=== PATIENT | female | born 1935 | race Caucasian/White ===

== ENCOUNTER 2019-02-09 19:17 | Observation (INO) | payer OTHER ==
--- OUTSIDE RECORDS SUMMARY | 2019-02-09 19:20 | XMS REPORT ---
:1935 [facility] [address] [place] [address] Dr. Lujan. [address] [place] [address] Care Team Providers Name Role Phone Unavailable Unavailable Unavailable Payers Payer Name Policy Type Policy Number Effective Date Expiration Date Problems This patient has no known problems. Allergies, Adverse Reactions, Alerts Allergy Allergy Status Severity Reaction(s) Onset Inactive Treating Comments Name Type Date Date Clinician Iodinated DA Active SV 2016-04 Contrast- -05 Oral and IV 00:00:0 Dye 0 Sulfa DA Active U 2016-04 (Sulfonamid -05 e 00:00:0 Antibiotics 0 ) NOVACAINE DA Active SV 2016-02 00:00:0 0 Medications This patient has no known medications. Results Test Description Test Time Test Comments Text Results Atomic Results Result Comments COMPREHENSIVE METABOLIC PANEL 2018-12-23 22:35:00 Test Item Value Reference Range Comments SODIUM (test code=NA) 140 mmol/l 134.0-147.0 POTASSIUM (test code=K) 4.1 mmol/L 3.6-5.2 CHLORIDE (test code=CL) 103 mmol/l 98.0-107.0 CARBON DIOXIDE (test code=CO2) 27.5 mmol/l 21.0-33.0 ANION GAP (test code=GAP) 13.6 0-20 GLUCOSE (test code=GLU) 85 mg/dl 70.0-110.0 BLOOD UREA NITROGEN (test code=BUN) 23 mg/dl 7.0-18.0 CREATININE (test code=CREAT) 1.29 mg/dL 0.60-1.30 GFR NON BLACK (test code=GFRNONBLACK) 42 mL/min 70-80 GFR BLACK (test code=GFRBLACK) 51 mL/min 85-97 TOTAL PROTEIN (test code=PROT) 7.0 gm/dL 6.4-8.2 ALBUMIN (test code=ALB) 3.4 gm/dl 3.2-4.7 CALCIUM (test code=CA) 8.5 mg/dl 8.0-10.5 BILIRUBIN TOTAL (test code=BILT) 0.5 mg/dl 0.0-1.0 SGOT/AST (test code=AST) 23 Units/L 15.0-37.0 SGPT/ALT (test code=ALT) 18 Units/L 12.0-78.0 ALKALINE PHOSPHATASE TOTAL (test code=ALKP) 86 Units/L 50.0-136.0 CREATINE KINASE (CK)2018-12-23 22:35:00 Test Item Value Reference Range Comments CREATINE KINASE (CK) (test code=CK) 97 Units/L 26-192 [id number] 22:35:00 Test Item Value Reference Range Comments TROPONIN-I (test <0.02 NG/ML 0.00-0.06 REFERENCE RANGE TROPONIN I code=TROPI) HEALTHY INDIVIDUALS: <0.06 ng/mL R/O ISCHEMIA: 0.07 - 0.60 ng/mL CUT-OFF RANGE FOR AMI: 0.60 - 1.5 ng/mL [id number] 22:35:00 Test Item Value Reference Range Comments ACETAMINOPHEN (test code=ACET) <2.0 mcg/ml 10.0-30.0 Result is in Microgram per milliliter. [id number] 22:35:00 Test Item Value Reference Range Comments SALICYLATE (test code=MIGEL) 0.8 mg/dl 2.8-20.0 [id number] 22:35:00 Test Item Value Reference Range Comments ALCOHOL (test code=ALC) 0.00 gm/dL 0.00-0.00 ETHYL ALCOHOL VALUES - INTERPRETATION: 0.050 GM/DL - NOT INTOXICATED 0.100 GM/DL - INTOXICATED 0.350-0.450 GM/DL - SEVERELY INTOXICATED 0.550 GM/DL- FATAL INTOXICATION DRUGS OF ABUSE SCREEN [id number] 22:33:00 Test Item Value Reference Range Comments URN COCAINE (test NEGATIVE NEGATIVE Cocaine cut-off concentration: code=COCAURN) 300 ng/mL URN CANNABINOIDS (test NEGATIVE NEGATIVE Cannabinoids cut-off code=CANNABURN) concentration: 50 ng/mL URN AMPHETAMINE (test NEGATIVE NEGATIVE Amphetamine cut-off code=AMPHETURN) concentration: 1000 ng/mL URN BARBITURATE (test NEGATIVE NEGATIVE Barbiturate cut-off code=BARBITURN) concentration: 200 ng/mL URN BENZODIAZEPINE (test NEGATIVE NEGATIVE Benzodiazepine cut-off code=BENZOURN) concentration: 200 ng/mL URN OPIATES (test NEGATIVE NEGATIVE Opiates cut-off concentration: code=OPIATURN) 200 ng/mL URN PHENCYCLIDINE (PCP) (test NEGATIVE NEGATIVE Phencyclidine(PCP) cut-off code=PHENCURN) concentration: 25 ng/ml URN METHADONE (test NEGATIVE NEGATIVE Methadone cut-off code=METHAURN) concentration: 300 ng/mL COMPREHENSIVE METABOLIC [id number] 22:25:00 Test Item Value Reference Range Comments SODIUM (test code=NA) 140 mmol/l 134.0-147.0 POTASSIUM (test code=K) 4.1 mmol/L 3.6-5.2 CHLORIDE (test code=CL) 103 mmol/l 98.0-107.0 CARBON DIOXIDE (test code=CO2) 27.5 mmol/l 21.0-33.0 ANION GAP (test code=GAP) 13.6 0-20 GLUCOSE (test code=GLU) mg/dl 70.0-110.0 BLOOD UREA NITROGEN (test code=BUN) mg/dl 7.0-18.0 CREATININE (test code=CREAT) mg/dL 0.60-1.30 GFR NON BLACK (test code=GFRNONBLACK) mL/min 70-80 GFR BLACK (test code=GFRBLACK) mL/min 85-97 TOTAL PROTEIN (test code=PROT) gm/dL 6.4-8.2 ALBUMIN (test code=ALB) gm/dl 3.2-4.7 CALCIUM (test code=CA) mg/dl 8.0-10.5 BILIRUBIN TOTAL (test code=BILT) mg/dl 0.0-1.0 SGOT/AST (test code=AST) Units/L 15.0-37.0 SGPT/ALT (test code=ALT) Units/L 12.0-78.0 ALKALINE PHOSPHATASE TOTAL (test code=ALKP) Units/L 50.0-136.0 CREATINE KINASE (CK)2018-12-23 22:25:00 Test Item Value Reference Range Comments CREATINE KINASE (CK) (test code=CK) Units/L 26-192 [id number] 22:25:00 Test Item Value Reference Range Comments TROPONIN-I (test code=TROPI) NG/ML 0.00-0.06 [id number] 22:25:00 Test Item Value Reference Range Comments ACETAMINOPHEN (test code=ACET) mcg/ml 10.0-30.0 [id number] 22:25:00 Test Item Value Reference Range Comments SALICYLATE (test code=MIGEL) mg/dl 2.8-20.0 [id number] 22:25:00 Test Item Value Reference Range Comments ALCOHOL (test code=ALC) gm/dL 0.00-0.00 PROTHROMBIN [id number] 22:24:00 Test Item Value Reference Range Comments PROTHROMBIN TIME PATIENT 11.9 SECONDS 9.9-12.8 (test code=PTP) INTERNATIONAL NORMAL RATIO 1.0 0.89-1.14 THE INR IS TO BE USED ONLY (test code=INR) FOR MONITORING ORAL ANTICOAGULANTTHERAPY. THE FOLLOWING ARE SUGGESTED RANGES FROM THEAMERICAN COLLEGE OF CHEST PHYSICIANS:INDICATION INR VALUEPROPHYLAXIS OF VENOUS THROMBOSIS (ORTHOPEDIC SURGERY) 2.0 - 3.0PROPHYLAXIS OF VENOUS THROMBOSIS (OTHER THAN HIGH-RISK SURGERY) 2.0 - 3.0TREATMENT OF DEEP VEIN THROMBOSIS OR PULMONARY EMBOLISM 2.0 - 3.0PREVENTION OF SYSTEMIC EMBOLISM TISSUE HEART VALVES 2.0 - 3.0 ACUTE MYOCARDIAL INFARCTION (TO PREVENT SYSTEMIC EMBOLISM) 2.0 - 3.0 ACUTE MYOCARDIAL INFARCTION (TO PREVENT RECURRENT INFARCT) 2.5 - 3.0 VALVULAR HEART DISEASE 2.0 - 3.0 ATRIAL FIBRILATION 2.0 - 3.0BILEAFLET MECHANICAL VALVE IN AORTIC POSITION 2.0 - 3.0MECHANICAL PROSTHETIC VALVES (HIGH RISK) 2.5 - 3.5PRESENCE OF LUPUS ANTICOAGULANT OR ANTIPHOSPHOLIPID ANTIBODIES 2.5 - 3.5 THROMBOPLASTIN TIME [id number] 22:24:00 Test Item Value Reference Range Comments THROMBOPLASTIN TIME 26.50 SECONDS 25.86-36.07 [facility] PARTIAL (test code=PTT) Range - APTT of 55.8-85.4 secondscorrelates with plasma heparin concentration of 0.2-0.4 u/mL New range effective - 10/06/2016 URINALYSIS [id number] 22:23:00 Test Item Value Reference Range Comments UA COLOR (test code=COLU) LT YELLOW UA APPEARANCE (test code=APPU) SLHZY UA GLUCOSE DIPSTICK (test code=DGLUU) NORMAL mg/dl NORMAL UA BILIRUBIN DIPSTICK (test code=BILU) NEGATIVE mg/dL NEGATIVE UA KETONE DIPSTICK (test code=KETU) NEGATIVE mg/dl NEGATIVE UA SPECIFIC GRAVITY (test code=SGU) 1.015 1.000-1.030 UA BLOOD DIPSTICK (test code=SAMANTHA) NEGATIVE Eric/micL NEGATIVE UA PH DIPSTICK (test code=BRENT) 6.0 5.0-9.0 UA PROTEIN DIPSTICK (test code=PROU) NEGATIVE mg/dl NEGATIVE UA UROBILINIOGEN DIPSTICK (test NORMAL mg/dl NORMAL code=URO) UA NITRITE DIPSTICK (test code=NATI) NEGATIVE NEGATIVE UA LEUKOCYTE ESTERASE DIPSTICK (test 25 Raysa/micL Raysa/micL NEGATIVE code=LEUU) UA WBC (test code=WBCU) 3-5/HPF WBC/HPF NONE UA RBC (test code=RBCU) 1-3 RBC/HPF 0-3 UA EPITHELIAL CELLS (test code=EPIU) 10-15 EPI/HPF 0-3 UA BACTERIA (test code=BACU) FEW NONE UA HYALINE CAST (test code=HYALU) 0-2 /LPF <1/LPF CBC W/AUTO [id number] 22:19:00 Test Item Value Reference Range Comments WHITE BLOOD CELL (test code=WBC) 11.0 K/mm3 4.5-11.0 RED BLOOD CELL (test code=RBC) 3.71 M/mm3 3.80-5.20 HEMOGLOBIN (test code=HGB) 11.3 gm/dL 12.0-16.0 HEMATOCRIT (test code=HCT) 36.0 % 36.0-48.0 MEAN CELL VOLUME (test code=MCV) 97.0 UM3 82.0-99.0 MEAN CELL HGB (test code=MCH) 30.5 UUG 25.5-32.5 MEAN CELL HGB CONCETRATION (test code=MCHC) 31.4 gm/dL 29.0-35.5 RED CELL DISTRIBUTION WIDTH (test code=RDW) 15.0 % 11.5-15.0 RED CELL DISTRIBUTION WIDTH SD (test 53.2 fL 34.8-50.2 code=RDW-SD) PLATELET COUNT (test code=PLT) 188 K/mm3 150-400 MEAN PLATELET VOLUME (test code=MPV) 10.6 fl 7.4-10.4 NEUTROPHIL % (test code=NT%) 73.7 % 49.0-76.0 IMMATURE GRANULOCYTE % (test code=IG%) 0.8 % 0.0-0.4 LYMPHOCYTE % (test code=LY%) 15.6 % 23.0-38.0 MONOCYTE % (test code=MO%) 6.4 % 1.0-10.0 EOSINOPHIL % (test code=EO%) 3.0 % 1.0-5.0 BASOPHIL % (test code=BA%) 0.5 % 0.0-1.0 NEUTROPHIL # (test code=NT#) 8.1 K/mm3 2.4-6.3 IMMATURE GRANULOCYTE # (test code=IG#) 0.09 x10 3/uL 0.00-0.07 LYMPHOCYTE # (test code=LY#) 1.7 K/mm3 1.2-4.0 MONOCYTE # (test code=MO#) 0.7 K/mm3 0.0-0.6 EOSINOPHIL # (test code=EO#) 0.3 K/MM3 0.0-0.7 BASOPHIL # (test code=BA#) 0.1 K/mm3 0.0-0.2 URINALYSIS [id number] 22:18:00 Test Item Value Reference Range Comments UA COLOR (test code=COLU) LT YELLOW UA APPEARANCE (test code=APPU) SLHZY UA GLUCOSE DIPSTICK (test code=DGLUU) NORMAL mg/dl NORMAL UA BILIRUBIN DIPSTICK (test code=BILU) NEGATIVE mg/dL NEGATIVE UA KETONE DIPSTICK (test code=KETU) NEGATIVE mg/dl NEGATIVE UA SPECIFIC GRAVITY (test code=SGU) 1.015 1.000-1.030 UA BLOOD DIPSTICK (test code=SAMANTHA) NEGATIVE Eric/micL NEGATIVE UA PH DIPSTICK (test code=BRENT) 6.0 5.0-9.0 UA PROTEIN DIPSTICK (test code=PROU) NEGATIVE mg/dl NEGATIVE UA UROBILINIOGEN DIPSTICK (test NORMAL mg/dl NORMAL code=URO) UA NITRITE DIPSTICK (test code=NATI) NEGATIVE NEGATIVE UA LEUKOCYTE ESTERASE DIPSTICK (test 25 Raysa/micL Raysa/micL NEGATIVE code=LEUU) UA WBC (test code=WBCU) WBC/HPF NONE UA RBC (test code=RBCU) RBC/HPF 0-3 UA EPITHELIAL CELLS (test code=EPIU) EPI/HPF 0-3 UA BACTERIA (test code=BACU) NONE - XR FOREARM 2 VIEWS [id number] 21:55:00 FAX: Silvia AdameNorfolkJr sawant [phone] [place]: St: REG FAX: Deborah Marcano [phone] Name: KADI DEMARCO [facility] : 1935 Age/S: 83/F [address] [facility] Unit #: [id number] Loc: [address] Phys: [place] [address] Acct: [id number] Dis Date: Status: REG ER PHONE #: [phone] Exam Date: 12/23/20182141 FAX #: [phone] Reason: FALL EXAMS: CPT CODE: [id number] XR FOREARM [address] [place] [address] CLINICAL HISTORY: Fall with hip pain., Bilateral forearm pain Left hip, 2 views.. Good alignment is seen with no evidence of fracture or subluxation. Mineralization pattern is intact. No obvious joint effusion is seen. Mild degenerative changes. IMPRESSION: No acute bone or joint space abnormality. No fracture seen. Bilateral forearms, 2 views. The right forearm appears to be intacttowards the wrist. No obvious joint effusion and only minimal degenerative changes. No foreign bodies are seen. The left forearm appears to be intact with no obviousjoint effusion although the elbow detail is limited. No fracture seen. IMPRESSION: Limited study. No obvious forearm fracture. Location: U19 at 2155 Reported and signed by: David Alvarez M.D. CC : Jr Shaw III, MD; Nuha Marcano MD Technologist: KRISTINA ALLAN; YVONNE LOWERY [facility] Date/Time/By: 12/23/2018 (2154) : By: [facility] PAGE 1 Signed Report FAX: Jr Cunningham II [phone] [place] : St: REG FAX: Nuha Marcano MD [phone] Name: KADI DEMARCO [facility] : 1935 Age /S: 83/F [address] [facility] Unit #: [id number] Loc: E.[address] [place] [address] Phys: [place] [address] Acct: [id number] Dis Date: Status: REG ER PHONE #: [phone] Exam Date : 12/23/20182141 FAX #: [phone] Reason: FALL EXAMS: CPT CODE: [id number] XR FOREARM [address] [place] [address] <Continued> Orig Print D/T: S: 12/23/2018 (2) PAGE 2 Signed Report- XR HIP W/PEL UNI 2+V [id number] 21:55:00 FAX: Jr Cunningham II [place]: St: REG FAX: Deborah Marcano [phone] - Name: KADI DEMARCO [facility] : 1935 Age/S: 83/F [address] [facility] Unit #: [id number] Loc: [address] Phys: [place] [address] Acct: [id number] Dis Date: Status: REG ER PHONE #: [phone] Exam Date: 12/23/20182141 FAX #: [phone] Reason: FALL EXAMS: CPT CODE: [id number] XR HIP W/PEL UNI 2+[place] [address] CLINICAL HISTORY: Fall with hip pain., Bilateral forearm pain Left hip, 2 views.. Good alignment is seen with no evidence of fracture or subluxation. Mineralization pattern is intact. No obvious joint effusion is seen. Mild degenerative changes. IMPRESSION: No acute bone or joint space abnormality. No fracture seen. Bilateral forearms, 2 views. The right forearm appears to be intacttowards the wrist. No obvious joint effusion and only minimal degenerative changes. No foreign bodies are seen. The left forearm appears to be intact with no obviousjoint effusion although the elbow detail is limited. No fracture seen. IMPRESSION: Limited study. No obvious forearm fracture. Location: U19 at 2155 Reported and signed by: David Alvarez M.D. CC : Jr Shaw III, MD; Nuha Marcano MD Technologist: KRISTINA LOWERY Trnscrd Date/Time/By: 12/23/2018 (2154) : By: [facility] PAGE 1 Signed Report FAX: Silvia ShawJr CHARLES [phone] [place] : St: REG FAX: Nuha Marcano MD [phone] Name: KADI DEMARCO [facility] : 1935 Age /S: 83/F [address] Unit #: [id number] Loc: [address] Phys: [place] [address] Acct: [id number] Dis Date: Status: REG ER PHONE #: [phone] Exam Date : 12/23/20182141 FAX #: [phone] Reason: FALL EXAMS: CPT CODE: [id number] XR HIP W/PEL UNI 2+[place] [address] <Continued> Orig Print D/T: S: 12/23/2018 (2152) PAGE 2 Signed Report- CT HEAD/BRAIN W/O [id number] 21:45:00 FAX: Silvia ShawJr CHARLES [phone] [place]: St: REG FAX: Nuha Marcano MD [phone] - Name: KADI DEMARCO [facility] : 1935 Age/S: 83/F [address] Unit: [id number] Loc: [address] Phys: [place] [address] Acct: [id number] Dis Date: Status: REG ER PHONE #: [phone] Exam Date: 12/23/20182138 FAX #: [phone] Reason: head injury EXAMS: CPT CODE: [id number] CT HEAD/BRAIN W/O CONT 19868 CLINICAL HISTORY: Head injury, combative. CT brain, unenhanced. Reformatted sagittal and coronal images. COMPARISON: April 14, 2016. Automated exposure control, iterative reconstruction technique, and/or adjustment of mA and/or kV according to patient's size wasutilized for optimum radiation dose reduction. An unenhanced study of the brain was performed. Stable cortical atrophy pattern and hypodensity in the white matter seen.. No hemorrhage, mass effect, or findings of CVA can be seen. No evidence of ventricular shift. The posterior fossa structures appear to be intact. There may be mild cerebellar atrophy. Bone window settings do not show any evidence of skull fracture. Visualized sinuses appear to be clear. . IMPRESSION: No acute appearing intracranial abnormality. Stable senescent changes. REASON FOR EXAM: Neck pain, trauma CT cervical spine, unenhanced with reformatted sagittal and coronal images. COMPARISON: March 10, 2016 All studies use automated exposure control, iterative reconstruction technique, and/or adjustment of mA and/or kV according to patient size for optimum radiation dose reduction The study is performed from above the dens through the lung apices. PAGE 1 Signed Report (CONTINUED) FAX : Jr Cunningham II [phone] [place]: St: REG FAX: Nuha Marcano MD [phone] Name: KADI DEMARCO [facility] : 1935 Age/S: 83/F [address] [facility] Unit: [id number] Loc: [address] Phys: [place] [address] Acct: [id number] Dis Date: Status: REG ER PHONE #: [phone] Exam Date: 12/23/20182138 FAX #: [phone] Reason: head injury EXAMS: CPT CODE: [id number] CT HEAD/BRAIN W/O CONT 94102 < Continued> The vertebral bodies are free of fracture and have symmetric appearance. Similar degenerative spondylosis changes seen diffusely in the spine. Multilevel foraminal stenosis seen due to uncinate process hypertrophy and facet hypertrophy. Spinal stenosis mainly C5-6 level.. The soft tissue window settings do not reveal apical pneumothorax or paraspinal hematoma. Reformatted images show good alignment and no fractures can be identified, either. Stable alignment pattern compared to the previous study. No fracture. Cranial cervical junction structures are intact. IMPRESSION: No fracture seen. Stable alignment pattern from 2016 with generalized spondylosis. Multilevel foraminal stenosis. Location: U19 at 2145 Reported and signed by: David Alvarez M.D. CC: Jr Shaw III, MD; Michelle PALACIOS Technologist: YVONNE LOWERY Trnscrd Dt/Tm: 12/23/2018 (2144) t.RCM Orig Print D/T: S: 12/23/2018 (8 PAGE 2 Signed Report- CT C-SPINE W/O [id number] 21:45:00 FAX : Jr Cunningham II [phone] [place]: St: REG FAX: Nuha Marcano MD [phone] Name: KADI DEMARCO [facility] : 1935 Age/S: 83/F [address] [facility] Alberto [employer] [facility] Unit: [id number] Loc: [address] Phys: [place] [address] Acct:[id number] Dis Date: Status: REG ER PHONE #: [phone] Exam Date: 12/23/20182138 FAX #: [phone] Reason: head injury EXAMS: CPT CODE: [id number] CT C-SPINE W/O CONT 95885 CLINICAL HISTORY: Head injury, combative. CT brain, unenhanced. Reformatted sagittal and coronal images. COMPARISON: April 14, 2016. Automated exposure control, iterative reconstruction technique, and/or adjustment of mA and/or kV according to patient's size wasutilized for optimum radiation dose reduction. An unenhanced study of the brain was performed. Stable cortical atrophy pattern and hypodensity in the white matter seen.. No hemorrhage, mass effect, or findings of CVA can be seen. No evidence of ventricular shift. The posterior fossa structures appear to be intact. There may be mild cerebellar atrophy. Bone window settings do not show any evidence of skull fracture. Visualized sinuses appear to be clear. . IMPRESSION: No acute appearing intracranial abnormality. Stable senescent changes. REASON FOR EXAM: Neck pain, trauma CT cervical spine, unenhanced with reformatted sagittal and coronal images. COMPARISON: March 10, 2016 All studies use automated exposure control, iterative reconstruction technique, and/or adjustment of mA and/or kV according to patient size for optimum radiation dose reduction The study is performed from above the dens through the lung apices. PAGE 1 Signed Report (CONTINUED) FAX: Silvia AdameNorfolkJr II [phone] [place]: St: REG FAX: Nuha Marcano MD ------ Name: KADI DEMARCO [facility] : 1935 Age/S: 83/F [address] [facility] Unit : [id number] Loc: [address] [place]: [place] [address] Acct: [id number] Dis Date: Status: REG ER PHONE #: [phone] Exam Date: 12/23/20182138 FAX #: [phone] Reason: head injury EXAMS: CPT CODE: [id number] CT C-SPINE W/O CONT 92114 <Continued> The vertebral bodies are free of fracture and have symmetric appearance. Similar degenerative spondylosis changes seen diffusely in the spine. Multilevel foraminal stenosis seen due to uncinate process hypertrophy and facet hypertrophy. Spinal stenosis mainly C5-6 level.. The soft tissue window settings do not reveal apical pneumothorax or paraspinal hematoma. Reformatted images show good alignment and no fractures can be identified, either. Stable alignment pattern compared to the previous study. No fracture. Cranial cervical junction structures are intact. IMPRESSION: No fracture seen. Stable alignment pattern from 2016 with generalized spondylosis. Multilevel foraminal stenosis. Location: U19 at 2149 Reported and signed by: David Alvarez M.D. CC: Jr Shaw III, MD; Michelle PALACIOS Technologist: YVONNE LOWERY Trnscrd Dt/Tm: 12/23/2018 (2144) [place] Orig Print D/T: S: 12/23/2018 (8 PAGE 2 Signed Report
[2019-02-09 20:20] LABS: Absolute Lymphocytes (CBC) 1.7 K/uL (0.7-4.9); Basophils % 1.2 % (0-1.3); Hematocrit 31.4 % (36.0-45.0); Lymphocytes % 32.9 % (15.3-44.8); MPV 8.3 fL (7.6-11.3); RBC Red Blood Cell Count 3.28 M/uL (3.86-4.86)
[2019-02-09 20:21] LABS: Protime INR 0.93
[2019-02-09 20:36] LABS: ALT/SGPT 26 U/L (12-78); AST/SGOT 33 U/L (15-37); Albumin 3.4 g/dL (3.4-5.0); Alkaline Phosphatase 87 U/L (45-117); BUN Blood Urea Nitrogen 29 mg/dL (7-18); Bicarbonate 25 mmol/L (21-32); Bilirubin Direct 0.1 mg/dL (0-0.2); Bilirubin Total 0.3 mg/dL (0.2-1.0); Glucose Level 115 mg/dL (74-106); Magnesium 2.4 mg/dL (1.8-2.4); NT PRO-BNP 419 pg/mL (<450); Potassium 4.3 mmol/L (3.5-5.1); Protein, Total 6.7 g/dL (6.4-8.2); Sodium Level 142 mmol/L (136-145); Troponin (Emerg Dept Use Only) < 0.02 ng/mL (0.0-0.045)
[2019-02-09 20:59] LABS: Urine Blood NEGATIVE (NEG); Urine Glucose NEGATIVE (NEG); Urine Protein NEGATIVE (NEG); Urine Specific Gravity 1.015 (1.005-1.030)
--- NOTE | 2019-02-09 21:05 | RAD REPORT ---
EXAM DESCRIPTION: RAD - Hip Left 2 View - 02/09/2019 8:27 pm CLINICAL HISTORY: Fall, pelvic and hip pain COMPARISON: None. FINDINGS: AP and cross-table lateral views of the left hip were obtained. No fracture or dislocation of the proximal left femur. Degenerative changes are present at the hip joint. No fracture of the le ft hemipelvis. Right pelvis findings are separately detailed. No pathologic bone process. No soft tissue abnormality. IMPRESSION: Left hip joint degenerative change with no left-sided fracture seen.
--- NOTE | 2019-02-09 21:05 | RAD REPORT ---
EXAM DESCRIPTION: RAD - Pelvis - 02/09/2019 8:27 pm CLINICAL HISTORY: Fall, pelvic and right hip pain COMPARISON: None. TECHNIQUE: AP imaging of the pelvis was obtained. FINDINGS: Prominent lower lumbar spine degenerative changes are present only partially visualized. S I joint degenerative changes minimal. No gross fracture deformity of the sacral ala; however, osteope wanda and overlying bowel limit sacral ala assessment. Fracture changes are evident in the inferior pub ic ramus on the right. Positioning is not optimal. Given the clinical history hand pain symptoms acut e fractures suspected. No fracture or dislocation of the proximal right femur. Degenerative cystic changes are present in th e right femoral head. IMPRESSION: No fracture or dislocation of the proximal femur. Degenerative changes are present in th e femoral head. Right inferior pubic ramus fracture is present and believed to be acute.
--- NOTE | 2019-02-09 21:07 | RAD REPORT ---
EXAM DESCRIPTION: RAD - Hip Right 2 View - 02/09/2019 8:25 pm CLINICAL HISTORY: Fall, pelvic and right pain COMPARISON: None. FINDINGS: AP and frog-leg views of the right hip were obtained. No fracture or dislocation of the p roximal femur. Femoral head degenerative changes are present. Degenerative changes are present at the hip joint itself. Fracture changes are present involving the right ischium and inferior pubic ramus. Positioning is not optimal. Given the fall history and pain pattern, acute fracture is suspected. No pathologic bone process. IMPRESSION: No dislocation or fracture of the proximal right femur. Right ischium and inferior pubic ramus fracture changes are present believed to be acute. As clinical findings warrant, thin section CT imaging of the pelvis could be performed to allow all s acral ala assessment and to assess the ischium and inferior pubic ramus for acute versus chronic frac ture.
--- NOTE | 2019-02-09 21:07 | RAD REPORT ---
EXAM DESCRIPTION: RAD - Chest Single View - 02/09/2019 8:24 pm CLINICAL HISTORY: Fall, cough COMPARISON: None. TECHNIQUE: AP portable chest image was obtained 2018 hours . FINDINGS: No focal lung parenchymal process. No failure or volume overload. Heart and vasculature ar e normal. No measurable pleural effusion and no pneumothorax. No acute bony abnormality seen. No acut e aortic findings suspected. IMPRESSION: No acute cardiopulmonary process.
--- NOTE | 2019-02-09 22:19 | EDPHYS ---
Physician Documentation [facility] Name: Sharri Hickman Age: 84 yrs Sex: Female : 1935 Arrival Date: 02/09/2019 Time: 19:26 Bed 5 Private MD: ED Physician Dylan Cano HPI: 02/09 19:49 This 84 yrs old Female presents to ER via EMS with complaints of Fall Injury. jamey 19:49 Details of fall: The patient fell from an upright position. Onset: The symptoms/episode jamey began/occurred just prior to arrival. Associated injuries: The patient sustained pelvis, decreased range of motion. Severity of symptoms: At their worst the symptoms were mild, moderate, in the emergency department the symptoms are unchanged. The patient has not experienced similar symptoms in the past. Historical: - Allergies: 19:37 Lidocaine; tl2 19:37 Haldol; tl2 - Home Meds: 19:37 folic acid 1 mg Oral tab 1 tab once daily [Active]; lorazepam 0.5 mg Oral tab .5 tab 2 tl2 times per day [Active]; risperidone 0.25 mg oral tab 1 tabs 2 times per day [Active]; acetaminophen 325 mg Oral tab 1 tab every 4 hours [Active]; docusate calcium 240 mg Oral cap 1 cap once daily [Active]; ondansetron HCl 4 mg Oral tab 2 tabs every 8 hours [Active]; - PMHx: 19:37 Dementia; acute psychosis; tl2 - Immunization history: Last tetanus immunization: unknown. - Social history:: Smoking status: Patient/guardian denies using tobacco. - Ebola Screening: : No symptoms or risks identified at this time. - Family history:: not pertinent. ROS: 19:49 Constitutional: Negative for fever, chills, and weight loss, Eyes: Negative for injury, jamey pain, redness, and discharge, ENT: Negative for injury, pain, and discharge, Neck: Negative for injury, pain, and swelling, Cardiovascular: Negative for chest pain, palpitations, and edema, Respiratory: Negative for shortness of breath, cough, wheezing, and pleuritic chest pain, Abdomen/GI: Negative for abdominal pain, nausea, vomiting, diarrhea, and constipation, Back: Negative for injury and pain, : Negative for injury, bleeding, discharge, and swelling, Skin: Negative for injury, rash, and discoloration, Neuro: Negative for headache, weakness, numbness, tingling, and seizure, Psych: Negative for depression, anxiety, suicide ideation, homicidal ideation, and hallucinations, Allergy/Immunology: Negative for hives, rash, and allergies, Endocrine: Negative for neck swelling, polydipsia, polyuria, polyphagia, and marked weight changes, Hematologic/Lymphatic: Negative for swollen nodes, abnormal bleeding, and unusual bruising. 19:49 MS/extremity: Positive for decreased range of motion, pain, of the pelvis. Exam: 19:49 Constitutional: This is a well developed, well nourished patient who is awake, alert, jamey and in no acute distress. Head/Face: Normocephalic, atraumatic. Eyes: Pupils equal round and reactive to light, extra-ocular motions intact. Lids and lashes normal. Conjunctiva and sclera are non-icteric and not injected. Cornea within normal limits. Periorbital areas with no swelling, redness, or edema. ENT: Nares patent. No nasal discharge, no septal abnormalities noted. Tympanic membranes are normal and external auditory canals are clear. Oropharynx with no redness, swelling, or masses, exudates, or evidence of obstruction, uvula midline. Mucous membranes moist. Neck: Trachea midline, no thyromegaly or masses palpated, and no cervical lymphadenopathy. Supple, full range of motion without nuchal rigidity, or vertebral point tenderness. No Meningismus. Chest/axilla: Normal chest wall appearance and motion. Nontender with no deformity. No lesions are appreciated. Cardiovascular: Regular rate and rhythm with a normal S1 and S2. No gallops, murmurs, or rubs. Normal PMI, no JVD. No pulse deficits. Respiratory: Lungs have equal breath sounds bilaterally, clear to auscultation and percussion. No rales, rhonchi or wheezes noted. No increased work of breathing, no retractions or nasal flaring. Abdomen/GI: Soft, non-tender, with normal bowel sounds. No distension or tympany. No guarding or rebound. No evidence of tenderness throughout. Back: No spinal tenderness. No costovertebral tenderness. Full range of motion. Female : Normal external genitalia. Skin: Warm, dry with normal turgor. Normal color with no rashes, no lesions, and no evidence of cellulitis. Psych: Awake, alert, with orientation to person, place and time. Behavior, mood, and affect are within normal limits. 19:49 Neuro: Orientation: Not oriented to person, place, time, situation, Mentation: appropriate for stated age, no acute changes, Memory: appropriate for stated age, Motor: moves all fours, Sensation: unable to test, Babinski testing is normal, seizure activity, is not displayed by the patient. Vital Signs: 19:27 BP 142 / 87; Pulse 86; Resp 18; Temp 97.6(O); Pulse Ox 100% on R/A; Weight 58.97 kg; tl2 Height 5 ft. 3 in. (160.02 cm); Pain 5/10; 20:25 BP 144 / 103; Pulse 84; Resp 20; Pulse Ox 100% ; tl2 21:33 BP 138 / 62; Pulse 78; Resp 18; Pulse Ox 100% on R/A; tl2 02/10 00:02 BP 143 / 71; Pulse 82; Resp 16 S; Temp 97.7(O); Pulse Ox 97% on R/A; Pain 0/10; bb 02/09 19:27 Body Mass Index 23.03 (58.97 kg, 160.02 cm) tl2 Deland Coma Score: 02/09 19:27 Eye Response: spontaneous(4). Verbal Response: confused(4). Motor Response: obeys tl2 commands(6). Total: 14. 20:25 Eye Response: spontaneous(4). Verbal Response: confused(4). Motor Response: obeys tl2 commands(6). Total: 14. Trauma Score (Adult): 19:27 Eye Response: spontaneous(1); Verbal Response: confused(1); Motor Response: obeys tl2 commands(2); Systolic BP: > 89 mm Hg(4); Respiratory Rate: 10 to 29 per min(4); Deland Score: 14; Trauma Score: 12 20:25 Eye Response: spontaneous(1); Verbal Response: confused(1); Motor Response: obeys tl2 commands(2); Systolic BP: > 89 mm Hg(4); Respiratory Rate: 10 to 29 per min(4); Justyn Score: 14; Trauma Score: 12 MDM: 19:29 Patient medically screened. [facility] 19:51 Data reviewed: vital signs, nurses notes, lab test result(s), EKG, radiologic studies, jamey plain films. 02/09 19:48 Order name: Basic Metabolic Panel [facility] 02/09 19:48 Order name: CBC with Diff [facility] 02/09 19:48 Order name: LFT's [facility] 02/09 19:48 Order name: Magnesium; Complete Time: 22:08 [facility] 02/09 19:48 Order name: NT PRO-BNP; Complete Time: 22:08 [facility] 02/09 19:48 Order name: PT-INR; Complete Time: 22:08 [facility] 02/09 19:48 Order name: Troponin (emerg Dept Use Only); Complete Time: 22:08 [facility] 02/09 19:48 Order name: XRAY Chest (1 view); Complete Time: 22:08 [facility] 02/09 19:48 Order name: Pelvis XRAY; Complete Time: 22:08 [facility] 02/09 19:48 Order name: Urine Culture [facility] 02/09 19:49 Order name: Basic Metabolic Panel; Complete Time: 22:08 [facility] 02/09 19:49 Order name: CBC with Automated Diff; Complete Time: 22:08 [facility] 02/09 19:49 Order name: Liver (Hepatic) Function; Complete Time: 22:08 [facility] 02/09 20:48 Order name: Urine Dipstick--Ancillary (enter results); Complete Time: 22:08 [facility] 02/09 19:48 Order name: EKG; Complete Time: 19:50 [facility] 02/09 19:48 Order name: Cardiac monitoring; Complete Time: 20:05 [facility] 02/09 19:48 Order name: EKG - Nurse/Tech; Complete Time: 19:56 [facility] 02/09 19:48 Order name: IV Saline Lock; Complete Time: 20:06 [facility] 02/09 19:48 Order name: Labs collected and sent; Complete Time: 20:06 [facility] 02/09 19:48 Order name: O2 Per Protocol; Complete Time: 20:06 [facility] 02/09 19:48 Order name: O2 Sat Monitoring; Complete Time: 20:06 [facility] 02/09 19:48 Order name: Hip Left 2 View XRAY; Complete Time: 22:08 [facility] 02/09 19:48 Order name: Hip Right 2 View XRAY; Complete Time: 22:08 [facility] 02/09 19:48 Order name: Urine Dipstick-Ancillary (obtain specimen); Complete Time: 20:50 [facility] 02/09 23:07 Order name: CONS Pharmacy Consult [facility] 02/09 23:07 Order name: NPO [facility] Administered Medications: 20:37 Drug: NS 0.9% 1000 ml Route: IV; Rate: 125 ml/hr; Site: left antecubital; tl2 02/10 00:44 Follow up: IV Status: Infusion continued upon admission tl2 02/09 23:22 Drug: Rocephin - (cefTRIAXone) 1 grams Route: IVPB; Infused Over: 30 mins; Site: left tl2 antecubital; 23:40 Follow up: IV Status: Completed infusion; IV Intake: 20ml tl2 Disposition: 02/09/19 22:18 Hospitalization ordered by Shahida Cash for Inpatient Admission. Preliminary diagnosis are Fall due to bumping against object, Altered mental status, unspecified, Dementia in other diseases classified elsewhere, Urinary tract infection, site not specified, Fracture of other parts of pelvis - inferior right ramus, ischium, Volume depletion, Anemia, unspecified, Unspecified kidney failure. - Bed requested for Telemetry/MedSurg (Inpatient). - Status is Inpatient Admission. tl2 - Condition is Fair. - Problem is new. - Symptoms are unchanged. UTI on Admission? Yes Signatures: Dispatcher [employer] [facility] Dylan Cano MD MD cha Garcia, Cindy, RN RN Nancy Lloyd RN RN tl2 Corrections: (The following items were deleted from the chart) 23:37 22:18 Hospitalization Ordered by Shahida Cash MD for Inpatient Admission. Preliminary cg diagnosis is Fall due to bumping against object; Altered mental status, unspecified; Dementia in other diseases classified elsewhere; Urinary tract infection, site not specified; Fracture of other parts of pelvis - inferior right ramus, ischium; Volume depletion; Anemia, unspecified; Unspecified kidney failure. Bed requested for Telemetry/MedSurg (Inpatient). Status is Inpatient Admission. Condition is Fair. Problem is new. Symptoms are unchanged. UTI on Admission? Yes. [facility] 02/10 00:44 02/09 23:37 02/09/2019 22:18 Hospitalization Ordered by Shahida Cash MD for Inpatient tl2 Admission. Preliminary diagnosis is Fall due to bumping against object; Altered mental status, unspecified; Dementia in other diseases classified elsewhere; Urinary tract infection, site not specified; Fracture of other parts of pelvis - inferior right ramus, ischium; Volume depletion; Anemia, unspecified; Unspecified kidney failure. Bed requested for Telemetry/MedSurg (Inpatient). Status is Inpatient Admission. Condition is Fair. Problem is new. Symptoms are unchanged. UTI on Admission? Yes.
--- NOTE | 2019-02-09 22:19 | ER ---
Nurse's Notes [facility] Name: Sharri Hickman Age: 84 yrs Sex: Female : 1935 Arrival Date: 02/09/2019 Time: 19:26 Bed 5 Private MD: Diagnosis: Fall due to bumping against object;Altered mental status, unspecified;Dementia in other diseases classified elsewhere;Urinary tract infection, site not specified;Fracture of other parts of pelvis-inferior right ramus, ischium;Volume depletion;Anemia, unspecified;Unspecified kidney failure Presentation: 02/09 19:27 Presenting complaint: EMS states: Pt found on floor at [facility] after trying to go to [facility] the bathroom. Pt c/o pain in right hip. Care prior to arrival: None. Mechanism of Injury: Fall from standing position. Trauma event details: Injury occurred in the [facility]. 19:27 Acuity: MISSY 3 tl2 19:27 Method Of Arrival: EMS: [facility] tl2 19:38 Transition of care: patient was received from another setting of care (long-term care [facility] facility), [facility]. Onset of symptoms was February 09, 2019 at 18:00. Risk Assessment: Do you want to hurt yourself or someone else? Patient reports no desire to harm self or others. Initial Sepsis Screen: Does the patient meet any 2 criteria?. Initial Sepsis Screen: Does the patient have a suspected source of infection? No. Patient's initial sepsis screen is negative. Historical: - Allergies: 19:37 Lidocaine; tl2 19:37 Haldol; tl2 - Home Meds: 19:37 folic acid 1 mg Oral tab 1 tab once daily [Active]; lorazepam 0.5 mg Oral tab .5 tab 2 tl2 times per day [Active]; risperidone 0.25 mg oral tab 1 tabs 2 times per day [Active]; acetaminophen 325 mg Oral tab 1 tab every 4 hours [Active]; docusate calcium 240 mg Oral cap 1 cap once daily [Active]; ondansetron HCl 4 mg Oral tab 2 tabs every 8 hours [Active]; - PMHx: 19:37 Dementia; acute psychosis; tl2 - Immunization history: Last tetanus immunization: unknown. - Social history:: Smoking status: Patient/guardian denies using tobacco. - Ebola Screening: : No symptoms or risks identified at this time. - Family history:: not pertinent. Screenin:27 Abuse screen: Denies threats or abuse. Nutritional screening: No deficits noted. tl2 Tuberculosis screening: No symptoms or risk factors identified. Fall risk At risk due to injury, age, immobility, prior history of falls. 19:41 Fall Risk Fall in past 12 months (25 points). Gait- Impaired (20 pts.). Mental Status- tl2 Overestimates/Forgets Limitations (15 pts.). Primary Survey: 19:27 NO uncontrolled hemorrhage observed. A: The patient is alert. Airway: patent, No tl2 supplemental oxygen in use on arrival. Breathing/Chest: Respiratory pattern: regular, Respiratory effort: spontaneous, unlabored, Breath sounds: clear, Chest inspection: symmetrical rise and fall of the chest. Circulation: Pulses: palpable . Skin temperature: warm, dry. Disability Alert. Exposure/Environment: All clothing and personal items were removed. Forensic evidence collection is not deemed to be indicated at this time. Items placed in patient belonging bag. There is no evidence of uncontrolled external bleeding. Obvious injury(ies) are noted at this time: pain to right hip A warming method has been applied: A warm blanket has been provided to the patient. 20:39 Reassessment Airway Airway Patent Oxygen No O2 Breathing/Chest Respiratory pattern tl2 Regular Respiratory effort Spontaneous Unlabored Breath sounds Clear Chest inspection Symmetrical Disability Alert. Secondary Survey: 19:27 HEENT: No deficits noted. Gastrointestinal: No deficits noted. : No deficits noted. tl2 Musculoskeletal: Reports pain in right hip. Assessment: 19:27 General: Appears in no apparent distress. uncomfortable, Behavior is cooperative. Pain: tl2 Complains of pain in right hip. Neuro: Level of Consciousness is awake, alert, confused, Oriented to person, this is her baseline, pt has late onset dementia. Cardiovascular: Denies chest pain. Respiratory: Airway is patent Respiratory effort is even, unlabored, Respiratory pattern is regular, symmetrical. GI: No signs and/or symptoms were reported involving the gastrointestinal system. Derm: Skin is fragile, is thin, Skin is pink, warm \T\ dry. Musculoskeletal: Circulation, motion, and sensation intact. Range of motion: limited in left hip and right hip. 20:50 Reassessment: Liliana Cool- daughter [phone]. tl2 22:45 Reassessment: pt attempting to get out of bed she was redirected and repositioned Kamala tang RNmetal fabricating supervisor notified of need for sitter. wildlife biology technician at bedside. 02/10 00:08 Reassessment: pt is awake and alert IV site intact patent with fluids infusing report kitty called to [facility] for room 402. Vital Signs: 02/09 19:27 BP 142 / 87; Pulse 86; Resp 18; Temp 97.6(O); Pulse Ox 100% on R/A; Weight 58.97 kg; tl2 Height 5 ft. 3 in. (160.02 cm); Pain 5/10; 20:25 BP 144 / 103; Pulse 84; Resp 20; Pulse Ox 100% ; tl2 21:33 BP 138 / 62; Pulse 78; Resp 18; Pulse Ox 100% on R/A; tl2 02/10 00:02 BP 143 / 71; Pulse 82; Resp 16 S; Temp 97.7(O); Pulse Ox 97% on R/A; Pain 0/10; bb 02/09 19:27 Body Mass Index 23.03 (58.97 kg, 160.02 cm) tl2 Justyn Coma Score: 02/09 19:27 Eye Response: spontaneous(4). Verbal Response: confused(4). Motor Response: obeys tl2 commands(6). Total: 14. 20:25 Eye Response: spontaneous(4). Verbal Response: confused(4). Motor Response: obeys tl2 commands(6). Total: 14. Trauma Score (Adult): 19:27 Eye Response: spontaneous(1); Verbal Response: confused(1); Motor Response: obeys tl2 commands(2); Systolic BP: > 89 mm Hg(4); Respiratory Rate: 10 to 29 per min(4); Medford Score: 14; Trauma Score: 12 20:25 Eye Response: spontaneous(1); Verbal Response: confused(1); Motor Response: obeys tl2 commands(2); Systolic BP: > 89 mm Hg(4); Respiratory Rate: 10 to 29 per min(4); Justyn Score: 14; Trauma Score: 12 ED Course: 19:26 Patient arrived in ED. tl2 19:27 Patient has correct armband on for positive identification. Placed in gown. Bed in low tl2 position. Call light in reach. Side rails up X2. Patient maintains SpO2 saturation greater than 95% on room air. 19:27 Patient maintains SpO2 saturation greater than 95% on room air. tl2 19:28 Triage completed. tl2 19:29 Dylan Cano MD is Attending Physician. [facility] 19:30 Arm band placed on. bb 19:38 No provider procedures requiring assistance completed. tl2 19:41 Thermoregulation: warm blanket given to patient. tl2 20:05 Inserted saline lock: 22 gauge in left antecubital area, using aseptic technique. Blood tl2 collected. 20:25 XRAY Chest (1 view) In Process Unspecified. EDMS 20:25 Pelvis XRAY In Process Unspecified. EDMS 20:25 Hip Left 2 View XRAY In Process Unspecified. EDMS 20:26 Hip Right 2 View XRAY In Process Unspecified. EDMS 20:40 Nanyc Lloyd RN is Primary Nurse. tl2 22:15 Shahida Cash MD is Hospitalizing Provider. [facility] 02/10 00:05 Patient admitted, IV remains in place. bb Administered Medications: 02/09 20:37 Drug: NS 0.9% 1000 ml Route: IV; Rate: 125 ml/hr; Site: left antecubital; tl2 02/10 00:44 Follow up: IV Status: Infusion continued upon admission tl2 02/09 23:22 Drug: Rocephin - (cefTRIAXone) 1 grams Route: IVPB; Infused Over: 30 mins; Site: left tl2 antecubital; 23:40 Follow up: IV Status: Completed infusion; IV Intake: 20ml tl2 Intake: 23:40 IV: 20ml; Total: 20ml. 2 02/10 00:03 PO: 0ml; Total: 20ml. bb Outcome: 02/09 22:18 Decision to Hospitalize by Provider. [facility] 02/10 00:03 Admitted to Tele accompanied by tech, via stretcher, room 402, with chart. bb Condition: stable 00:06 Patient's length of stay in the Emergency Department was greater than 2 hours. bb 00:08 Instructed on the need for admit. bb 00:44 Patient left the ED. tl2 Signatures: Dispatcher [employer] EDDylan Chatman MD MD cha Ballard, Brenda RN RN bb Nancy Lloyd, RN RN tl2
[2019-02-09] MEDS ORDERED: ONDANSETRON 4 MG/2 ML VIAL IV PRN (23:03)
[2019-02-09] MEDS ORDERED: ACETAMINOPHEN 500 MG TAB PO PRN (23:03)
[2019-02-09] MEDS ORDERED: CEFTRIAXONE/SWI 1gm 1 GM/10 ML SYR ONE (23:22)
[2019-02-09] MEDS: NA CHLORIDE 0.9% 1,000 ML IV SCH (23:45)
[2019-02-10] MEDS ORDERED: LORazepam 2 MG/ML VIAL ONE (01:07)
[2019-02-10] MEDS ORDERED: LORazepam 2 MG/ML VIAL IV PRN (01:47)
[2019-02-10] MEDS ORDERED: LORazepam 2 MG/ML VIAL IV ONE (01:59)
[2019-02-10 04:34] LABS: Absolute Lymphocytes (CBC) 1.6 K/uL (0.7-4.9); Basophils % 1.1 % (0-1.3); Eosinophils % 2.8 % (0-4.4); Hematocrit 30.9 % (36.0-45.0); Lymphocytes % 30.5 % (15.3-44.8); MPV 8.6 fL (7.6-11.3); Monocytes % 9.4 % (3.3-12.3); RBC Red Blood Cell Count 3.28 M/uL (3.86-4.86)
[2019-02-10 04:56] LABS: Albumin 3.2 g/dL (3.4-5.0); Bilirubin Total 0.4 mg/dL (0.2-1.0); Potassium 4.2 mmol/L (3.5-5.1); Protein, Total 6.3 g/dL (6.4-8.2)
--- NOTE | 2019-02-10 06:54 | EKG ---
Test Date: 2019-02-09 Test Time: 19:54:14 Animal Nutritionist: DARIEL MEASUREMENT RESULTS: Intervals: Rate: 80 SD: 164 QRSD: 72 QT: 390 QTc: 449 [place]: P: 54 SD: 164 QRS: 11 T: 60 INTERPRETIVE STATEMENTS: Sinus rhythm with premature supraventricular complexes Otherwise normal ECG No previous ECG available for comparison Electronically Signed On 02-10-19 06:53:06 CDT by Favian Scott
--- NOTE | 2019-02-10 08:09 | P.HP ---
Certification for Inpatient Patient admitted to: Observation With expected LOS: <2 Midnights Patient will require the following post-hospital care: Half-Way Practitioner: I am a practitioner with admitting privileges, knowledge of patient current condition, hospital course, and medical plan of care. Services: Services provided to patient in accordance with Admission requirements found in Title 42 Section 412.3 of the Code of Federal Regulations Patient History Date of Service: 02/09/19 Reason for admission: Altered mentation/status post fall/pelvic fractures History of Present Illness: Patient is an 84-year-old female who presented to the hospital after falling at [facility]. Apparently patient went to the restroom, and fell against the wall and fell down. Patient was brought into the emergency room. Patient has baseline dementia his so were not able to give much information from her. She is having some pain but is able to move the legs fairly well. Not sure if she had a syncopal event or if she fell and tripped because of her dementia. She will need to be admitted to the hospital for further workup. At this time, until we get a better idea on exactly what is going on with her will put her in for observation and a she needs continued workup or has a significant decline to where she is not ambulating then we may need to change this to an inpatient visit because of the complexity. Allergies haloperidol Adverse Reaction (Verified 02/10/19 02:44) Rash lidocaine Adverse Reaction (Verified 02/10/19 02:44) Rash Home Medications: Acetaminophen [Tylenol*] 650 mg PO Q4HR PRN 02/10/19 Amox/Clavulanate [Augmentin 875-125 Tab*] 1 tab PO BID 02/10/19 Docusate Calcium [Surfak] 240 mg PO DAILY PRN 02/10/19 Folic Acid 1 mg PO DAILY 02/10/19 Valeria-Lanta 30 ml PO Q6HR PRN 02/10/19 LORazepam [Ativan*] 0.25 mg PO BID 02/10/19 LORazepam [Ativan*] 1 tab PO Q4HR PRN 02/10/19 Mag Hydroxide 8% [Milk Of Magnesia*] 30 ml PO DAILY PRN 02/10/19 Neomycin Sheldon/Bacitrac Zn/Poly [Gnp Triple Antibiotic Ointment] 0.9 gm TOP BID PRN 02/10/19 Nystatin [Nystop] 1 appl TOP TID PRN 02/10/19 Ondansetron [Zofran (Odt)*] 1 tab SL Q4HR PRN 02/10/19 Risperidone [Risperidone Odt] 2 tab SL 1900 02/10/19 risperiDONE [Risperidone] 1 tab PO BID 02/10/19 - Past Medical/Surgical History Diabetic: No -: psychosis -: dementia Past Surgical History: Patient denies surgical history - Family History Mother History Unknown: Yes Father History Unknown: Yes - Social History Smoking Status: Unknown if ever smoked Alcohol use: No CD- Drugs: No Place of Residence: [facility] Review of Systems is unable to be obtained (Patient has dementia and is not reliable) Physical Examination - Vital Signs Temperature: 97.7 F Blood Pressure: 143/71 Pulse: 82 Respirations: 16 Pulse Ox (%): 96 - Physical Exam General: Alert, In no apparent distress, Demented, Confused HEENT: Atraumatic, Normocephalic, PERRLA, Mucous membr. moist/pink Neck: Supple, 2+ carotid pulse no bruit, JVD not distended, No Thyromegaly, No LAD Respiratory: Clear to auscultation bilaterally, Normal air movement Cardiovascular: No edema, Regular rate/rhythm, Normal S1 S2, No murmurs Gastrointestinal: Normal bowel sounds, Soft and benign, Non-distended, No tenderness, No rebound, No guarding Musculoskeletal: No clubbing, No swelling Integumentary: No rashes Neurological: Normal speech, Normal tone, Sensation intact, Cranial nerves 3-12 intact, Abnormal gait, Abnormal strength Lymphatics: No axilla or inguinal lymphadenopathy - Studies Laboratory Data (last 24 hrs) 02/09/19 20:00: PT 11.0, INR 0.93 02/09/19 20:00: WBC 5.2, Hgb 10.3 L, Hct 31.4 L, Plt Count 174 02/09/19 20:00: Sodium 142, Potassium 4.3, BUN 29 H, Creatinine 1.55 H, Glucose 115 H, Magnesium 2.4, Total Bilirubin 0.3, AST 33, ALT 26, Alkaline Phosphatase 87 Assessment & Plan - Problems (Diagnosis) (1) Status post fall Current Visit: Yes Status: Acute (2) Pelvic fracture Current Visit: Yes Status: Acute (3) Fracture of right inferior pubic ramus Current Visit: Yes Status: Acute (4) Dementia in Alzheimer's disease Current Visit: Yes Status: Acute (5) Lower extremity weakness Current Visit: Yes Status: Acute - Plan Plan: 1. Physical therapy evaluation and treatment 2. Pain control as needed 3. IV hydration 4. Monitor labs closely 5. Monitor nutritional status 6. Out of bed into chair with meals 7. Out of bed and ambulate twice a day 8. Patient with a Alzheimer's dementia which is very advanced. Patient really is not aware where she is and what is going on. Her dementia being so advanced will qualify for hospice support as well. Will need to discuss this with family 9. GI and DVT prophylaxis Discharge Plan: Other ([facility]) Plan to discharge in: 48 Hours - Advance Directives Does patient have a Living Will: No Does patient have a Durable POA for Healthcare: No - Code Status/Comfort Care Code Status Assessed: Yes Code Status: Full Code Critical Care: No Time Spent Managing PTS Care (In Minutes): 45
[2019-02-10] MEDS ORDERED: CEFTRIAXONE 1 GM/NS 50 ML 1 GM/50 ML BAG IV SCH (09:00)
[2019-02-10] MEDS ORDERED: DOCUSATE CALCIUM 240 MG CAP PO PRN (09:04)
[2019-02-10] MEDS ORDERED: MAGNES/ALUMIN/SIMET 30ML UCUP PO PRN (09:04)
[2019-02-10] MEDS ORDERED: NYSTATIN PWDR 100000 UNIT/GM TOP PRN (09:04)
[2019-02-10] MEDS ORDERED: MAGNESIUM HYDROXIDE 8% 30 ML PO PRN (09:04)
[2019-02-10] MEDS ORDERED: ONDANSETRON 4 MG (ODT) TAB SL PRN (09:04)
[2019-02-10] MEDS ORDERED: LORAZEPAM 0.5 MG TABLET PO PRN (09:04)
[2019-02-10] MEDS: MORPHINE 2 MG/ML SYR IV PRN (09:32)
--- NOTE | 2019-02-10 12:15 | P.PN ---
Subjective Date of Service: 02/10/19 Chief Complaint: Altered mentation/status post fall/pelvic fractures Pt seen and examined at bedside. Chart Reviewed and Case DW with Family at bedside. Pt's family is considering Hospice care at the [facility] but will need to some time to figure out the next option for her. Complains of pain and overnight she had increased pain. Review of Systems 10-point ROS is otherwise unremarkable Physical Examination - Vital Signs Temperature: 97.7 F Blood Pressure: 143/71 Pulse: 82 Respirations: 16 Pulse Ox (%): 96 - Physical Exam General: In no apparent distress, Oriented x1, Demented, Other (Moaning and groaning) Respiratory: Normal air movement, Expiratory wheezes, Inspiratory wheezes Cardiovascular: Regular rate/rhythm, Normal S1 S2 Gastrointestinal: Normal bowel sounds, No tenderness Musculoskeletal: No tenderness Integumentary: No rashes Neurological: Abnormal speech, Abnormal strength, Abnormal reflexes, Abnormal affect, Dementia Lymphatics: No axilla or inguinal lymphadenopathy - Studies Laboratory Data (last 24 hrs) 02/09/19 20:00: PT 11.0, INR 0.93 02/09/19 20:00: WBC 5.2, Hgb 10.3 L, Hct 31.4 L, Plt Count 174 02/09/19 20:00: Sodium 142, Potassium 4.3, BUN 29 H, Creatinine 1.55 H, Glucose 115 H, Magnesium 2.4, Total Bilirubin 0.3, AST 33, ALT 26, Alkaline Phosphatase 87 Medications List Reviewed: Yes Assessment And Plan - Current Problems (Diagnosis) (1) Status post fall Current Visit: Yes Status: Acute Plan: S/P Fall most likely 2.2 to unstable gait and Advance Dementia -PT consulted. 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 -Family considering Hospice care at [facility] Qualifiers: Encounter type: subsequent encounter Fracture type: closed Fracture healing: with delayed healing Qualified Code(s): S32.591G - Other specified fracture of right pubis, subsequent encounter for fracture with delayed healing (3) Pelvic fracture Current Visit: Yes Status: Chronic Qualifiers: Encounter type: subsequent encounter Pelvic bone location: pubis Sublocation of pubis: superior rim Fracture type: closed Laterality: unspecified laterality Fracture healing: with nonunion Qualified Code(s): S32.519K - Fracture of superior rim of unspecified pubis, subsequent encounter for fracture with nonunion (4) Dementia in Alzheimer's disease Current Visit: Yes Status: Chronic Discharge Plan: Home Plan to discharge in: Greater than 2 days - Code Status/Comfort Care Code Status Assessed: Yes Critical Care: No
[2019-02-10] MEDS: NA CHLORIDE 0.9% 1,000 ML IV SCH (16:13)
[2019-02-10] MEDS: RISPERIDONE 1 MG TABLET PO SCH (18:14)
[2019-02-10] MEDS: CEFTRIAXONE/SWI 1gm 1 GM/10 ML SYR IV SCH (20:17)
[2019-02-10] MEDS: ZIPRASIDONE MESYLA 20 MG/VIAL IM PRN (20:19)
[2019-02-10] MEDS: WATER FOR INJ,STERILE 10 ML IM PRN (20:20)
[2019-02-10] MEDS ORDERED: LORAZEPAM 0.5 MG TABLET PO SCH (21:00)
[2019-02-10] MEDS ORDERED: RISPERIDONE 0.25 MG TABLET PO SCH (21:00)
[2019-02-11] MEDS: NA CHLORIDE 0.9% 1,000 ML IV SCH ×3 (02:25→18:27)
[2019-02-11] MEDS: MORPHINE 2 MG/ML SYR IV PRN (09:42)
[2019-02-11] MEDS: FOLIC ACID 1 MG TABLET PO SCH (09:42)
--- NOTE | 2019-02-11 11:20 | P.PN ---
Subjective Date of Service: 02/11/19 Chief Complaint: Altered mentation/status post fall/pelvic fractures Pt seen and examined at bedside. Chart Reviewed and Case DW with Family at bedside. Family signed up with hospice care with [facility]. Paperwork has been sent to with [facility] for placement. Family also trying to get patient to Memory unit at [facility]. Review of Systems 10-point ROS is otherwise unremarkable Physical Examination - Vital Signs Temperature: 97.8 F Blood Pressure: 149/78 Pulse: 83 Respirations: 18 Pulse Ox (%): 97 - Physical Exam General: Alert, Oriented x1, Demented Respiratory: Normal air movement, Expiratory wheezes, Inspiratory wheezes Cardiovascular: Regular rate/rhythm, Normal S1 S2 Gastrointestinal: Normal bowel sounds, No tenderness Musculoskeletal: Tenderness (Left Pubic area pain) Integumentary: No rashes Neurological: Normal tone, Normal affect Lymphatics: No axilla or inguinal lymphadenopathy - Studies Medications List Reviewed: Yes Assessment And Plan - Current Problems (Diagnosis) (1) Status post fall Current Visit: Yes Status: Acute Plan: S/P Fall most likely 2.2 to unstable gait and Advance Dementia -PT consulted. 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 -Family enrolled patient and hospice care with [facility] -PT consulted at this time. -pain management as required Qualifiers: Encounter type: subsequent encounter Fracture type: closed Fracture healing: with delayed healing Qualified Code(s): S32.591G - Other specified fracture of right pubis, subsequent encounter for fracture with delayed healing (3) Pelvic fracture Current Visit: Yes Status: Chronic Plan: see # 2 Qualifiers: Encounter type: subsequent encounter Pelvic bone location: pubis Sublocation of pubis: superior rim Fracture type: closed Laterality: unspecified laterality Fracture healing: with nonunion Qualified Code(s): S32.519K - Fracture of superior rim of unspecified pubis, subsequent encounter for fracture with nonunion (4) Dementia in Alzheimer's disease Current Visit: Yes Status: Chronic - Plan Pending clinical placement at this time. Family agreeable to hospice care. Patient ruled in hospice care. Will await placement at the longterm at this time. Discharge Plan: Shelter Plan to discharge in: 48 Hours - Code Status/Comfort Care Code Status Assessed: Yes Critical Care: No
[2019-02-11] MEDS: WATER FOR INJ,STERILE 10 ML IM PRN (14:57)
[2019-02-11] MEDS: ZIPRASIDONE MESYLA 20 MG/VIAL IM PRN (14:57)
[2019-02-11] MEDS: RISPERIDONE 1 MG TABLET PO SCH (18:27)
[2019-02-11] MEDS: DOCUSATE NA 100 MG CAP PO SCH ×2 (21:00→22:14)
[2019-02-11] MEDS: CEFTRIAXONE/SWI 1gm 1 GM/10 ML SYR IV SCH (22:14)
[2019-02-12] MEDS: NA CHLORIDE 0.9% 1,000 ML IV SCH (08:10)
[2019-02-12] MEDS: FOLIC ACID 1 MG TABLET PO SCH (09:00)
[2019-02-12] MEDS: DOCUSATE NA 100 MG CAP PO SCH (09:00)
--- NOTE | 2019-02-12 11:05 | P.DS ---
Admission Date: 02/09/19 Discharge Date: 02/12/19 Primary Care Provider: [facility] physician Disposition: TRANSFER TO SNF Discharge Condition: GOOD Reason for Admission: Altered mentation/status post fall/pelvic fractures Consultations: none Procedures: Xray: FINDINGS: Prominent lower lumbar spine degenerative changes are present only partially visualized. SI joint degenerative changes minimal. No gross fracture deformity of the sacral ala; however, osteopenia and overlying bowel limit sacral ala assessment. Fracture changes are evident in the inferior pubic ramus on the right. Positioning is not optimal. Given the clinical history hand pain symptoms acute fractures suspected. No fracture or dislocation of the proximal right femur. Degenerative cystic changes are present in the right femoral head. IMPRESSION: No fracture or dislocation of the proximal femur. Degenerative changes are present in the femoral head. Right inferior pubic ramus fracture is present and believed to be acute. Medical Problem List: Status post fall secondary to unstable gait and advanced dementia with history of recurrent fall Right inferior pubic ramus fracture Alzheimer's dementia Brief History of Present Illness: 84-year-old female with Alzheimer's dementia presented to the emergency room after a fall. Patient fell after going to the restroom. She was brought in to the ER for further evaluation. Patient found to have pelvic fracture. Patient was admitted for further evaluation and treatment. Hospital Course: Patient presented with recurrent fall. Patient was found to have a right ramus pelvic fracture. Patient was observed. Surgical intervention was not required. Case discussed at length with family. Due to her dementia, family decided to initiate hospice. Social work helped in the process of sending the patient to [facility] with hospice in place. Patient previously at assisted living facility. Vital Signs/Physical Exam: Temp Pulse Resp BP Pulse Ox 97.3 F 70 16 142/79 H 98 02/12/19 08:00 02/12/19 08:00 02/12/19 08:00 02/12/19 08:00 02/12/19 08:00 General: Alert, Demented HEENT: Atraumatic Neck: Supple Respiratory: Clear to auscultation bilaterally, Normal air movement Cardiovascular: Normal pulses, Regular rate/rhythm Gastrointestinal: Normal bowel sounds, Soft and benign, Non-distended Neurological: Dementia Laboratory Data at Discharge: WBC 5.2 K/uL (4.3-10.9) 02/10/19 04:08 Hgb 10.5 g/dL (12.0-15.0) L 02/10/19 04:08 Hct 30.9 % (36.0-45.0) L 02/10/19 04:08 Plt Count 173 K/uL (152-406) 02/10/19 04:08 PT 11.0 SECONDS (9.5-12.5) 02/09/19 20:00 INR 0.93 02/09/19 20:00 Sodium 143 mmol/L (136-145) 02/10/19 04:08 Potassium 4.2 mmol/L (3.5-5.1) 02/10/19 04:08 BUN 26 mg/dL (7-18) H 02/10/19 04:08 Creatinine 1.33 mg/dL (0.55-1.3) H 02/10/19 04:08 Glucose 92 mg/dL (74-106) 02/10/19 04:08 Magnesium 2.4 mg/dL (1.8-2.4) 02/09/19 20:00 Total Bilirubin 0.4 mg/dL (0.2-1.0) 02/10/19 04:08 AST 34 U/L (15-37) 02/10/19 04:08 ALT 24 U/L (12-78) 02/10/19 04:08 Alkaline Phosphatase 76 U/L (45-117) 02/10/19 04:08 Home Medications: Acetaminophen [Tylenol*] 650 mg PO Q4HR PRN 02/10/19 Docusate Calcium [Surfak*] 240 mg PO DAILY PRN 02/10/19 Folic Acid 1 mg PO DAILY 02/10/19 Valeria-Lanta 30 ml PO Q6HR PRN 02/10/19 LORazepam [Ativan*] 0.25 mg PO BID 02/10/19 LORazepam [Ativan*] 1 tab PO Q4HR PRN 02/10/19 Mag Hydroxide 8% [Milk Of Magnesia*] 30 ml PO DAILY PRN 02/10/19 Neomycin Sheldon/Bacitrac Zn/Poly [Gnp Triple Antibiotic Ointment] 0.9 gm TOP BID PRN 02/10/19 Nystatin [Nystop] 1 appl TOP TID PRN 02/10/19 Ondansetron [Zofran (Odt)*] 1 tab SL Q4HR PRN 02/10/19 Risperidone [Risperidone Odt] 2 tab SL 1900 02/10/19 risperiDONE [Risperidone] 1 tab PO BID 02/10/19 Patient Discharge Instructions: 1. Patient to be discharged to assisted with hospice in place. 2. Patient with underlying dementia and recurrent falls. Patient found to have right ramus pubic fracture. This is nonoperable. Patient will continue with fall precaution. Will continue with her medications for dementia. Fall precautions in place. Hospice to be arranged. Diet: Regular Activity: Fall precautions Time spent managing pt's care (in minutes): 55
== END 2019-02-12 15:23 | disposition hospice, inpatient (51) ==
LOC: ER 19:17 → ERHOLD 23:03 → 4TH 02-10 00:10
PROVIDERS: ADMIT Hospitalist; ATTEND Hospitalist
DX: S32.511A Fracture of superior rim of right pubis, initial encounter for closed fracture (principal); W18.30XA Fall on same level, unspecified, initial encounter; Y92.009 Unspecified place in unspecified non-institutional (private) residence as the place of occurrence of the external cause; G30.9 Alzheimer's disease, unspecified; F02.80 Dementia in other diseases classified elsewhere, unspecified severity, without behavioral disturbance, psychotic disturbance, mood disturbance, and anxiety; Z91.81 History of falling
CPT/HCPCS: 96365; 96361; 93005; 87088; 85025 ×2; 87086; 80048; 36415; 83735; 85610; 80076; 81003; 84484; 80053; 83880; 71045; 72170; 73502 ×2; 99285; J3486 ×2; J2270 ×2; J0696 ×3; J7030 ×4; G0378 ×2

== ENCOUNTER 2019-03-19 08:10 | Inpatient (IN) | payer OTHER ==
--- OUTSIDE RECORDS SUMMARY | 2019-03-19 08:15 | XMS REPORT ---
:1935 [facility] Organization [facility] Address [address] [place] [address] [address]. Lujan[address] [place] [address] Care Team Providers Name Role Phone Unavailable [...] KINASE (CK) (test code=CK) 97 Units/L 26-192 [id number] 22:35:00 Test Item Value Reference Range Comments TROPONIN-I (test <0.02 NG/ML 0.00-0.06 REFERENCE RANGE TROPONIN I code=TROPI) HEALTHY INDIVIDUALS: <0.06 ng/mL R/O ISCHEMIA: 0.07 - 0.60 ng/mL CUT-OFF RANGE FOR AMI: 0.60 - 1.5 ng/mL [id number] 22:35:00 Test Item Value Reference Range Comments ACETAMINOPHEN (test code=ACET) <2.0 mcg/ml 10.0-30.0 Result is in Microgram per milliliter. [id number] 22:35:00 Test Item Value Reference Range Comments SALICYLATE (test code=MIGEL) 0.8 mg/dl 2.8-20.0 [id number] 22:35:00 Test Item Value Reference Range Comments ALCOHOL (test code=ALC) 0.00 gm/dL 0.00-0.00 ETHYL ALCOHOL VALUES - INTERPRETATION: 0.050 GM/DL - NOT INTOXICATED 0.100 GM/DL - INTOXICATED 0.350-0.450 GM/DL - SEVERELY INTOXICATED 0.550 GM/DL- FATAL INTOXICATION DRUGS OF ABUSE SCREEN [id number] 22:33:00 Test Item Value Reference Range Comments [...] cut-off code=METHAURN) concentration: 300 ng/mL COMPREHENSIVE METABOLIC [id number] 22:25:00 Test Item Value Reference Range Comments [...] CREATINE KINASE (CK) (test code=CK) Units/L 26-192 [id number] 22:25:00 Test Item Value Reference Range Comments TROPONIN-I (test code=TROPI) NG/ML 0.00-0.06 [id number] 22:25:00 Test Item Value Reference Range Comments ACETAMINOPHEN (test code=ACET) mcg/ml 10.0-30.0 [id number] 22:25:00 Test Item Value Reference Range Comments SALICYLATE (test code=MIGEL) mg/dl 2.8-20.0 [id number] 22:25:00 Test Item Value Reference Range Comments ALCOHOL (test code=ALC) gm/dL 0.00-0.00 PROTHROMBIN [id number] 22:24:00 Test Item Value Reference Range Comments [...] ANTIPHOSPHOLIPID ANTIBODIES 2.5 - 3.5 THROMBOPLASTIN TIME [id number] 22:24:00 Test Item Value Reference Range Comments THROMBOPLASTIN TIME 26.50 SECONDS 25.86-36.07 [facility] The[facility] PARTIAL (test code=PTT) Range - APTT of 55.8-85.4 secondscorrelates with plasma heparin concentration of 0.2-0.4 u/mL New range effective - 10/06/2016 URINALYSIS [id number] 22:23:00 Test Item Value Reference Range Comments [...] (test code=HYALU) 0-2 /LPF <1/LPF CBC W/AUTO [id number] 22:19:00 Test Item Value Reference Range Comments [...] # (test code=BA#) 0.1 K/mm3 0.0-0.2 URINALYSIS [id number] 22:18:00 Test Item Value Reference Range Comments [...] code=BACU) NONE - XR FOREARM 2 VIEWS [id number] 21:55:00 FAX: Silvia AdameWilcoxJr sawant Concrete: St: REG FAX: Deborah Marcano [phone] Name: KADI DEMARCO [facility] : 1935 Age/S: 83/F [address] [facility] Unit #: [id number] Loc: [address] Phys: [place] [address] Acct: [id number] Dis Date: Status: REG ER PHONE #: [phone] Exam Date: 12/23/20182141 FAX #: [phone] Reason: FALL EXAMS: CPT CODE: [id number] XR FOREARM [address] [place] [address] CLINICAL HISTORY: Fall with hip pain., Bilateral [...] Marcano MD Technologist: KRISTINA ALLAN; YVONNE LOWERY [facility] Date/Time/By: 12/23/2018 (2154) : By: [facility] PAGE 1 Signed Report FAX: Jr Cunningham II [phone] Concrete : St: REG FAX: Nuha Marcano MD [phone] Name: KADI DEMARCO [facility] : 1935 Age /S: 83/F [address] [facility] Unit #: [id number] Loc: [address] [place] [address] Phys: [place] [address] Acct: [id number] Dis Date: Status: REG ER PHONE #: [phone] Exam Date : 12/23/20182141 FAX #: [phone] Reason: FALL EXAMS: CPT CODE: [id number] XR FOREARM [address] [place] [address] <Continued> Orig Print D/T: S: 12/23/2018 (7) PAGE 2 Signed Report- XR HIP W/PEL UNI 2+V [id number] 21:55:00 FAX: Jr Cunningham II Concrete: St: REG FAX: Deborah Marcano [phone] - Name: KADI DEMARCO [facility] : 1935 Age/S: 83/F [address] [facility] Unit #: [id number] Loc: [address] Phys: [place] [address] Acct: [id number] Dis Date: Status: REG ER PHONE #: [phone] Exam Date: 12/23/20182141 FAX #: [phone] Reason: FALL EXAMS: CPT CODE: [id number] XR HIP W/PEL UNI 2+[place] [address] CLINICAL HISTORY: Fall with hip pain., Bilateral [...] LOWERY Trnscrd Date/Time/By: 12/23/2018 (2154) : By: [facility] PAGE 1 Signed Report FAX: Silvia ShawJr CHARLES [phone] Concrete : St: REG FAX: Nuha Marcano MD [phone] Name: KADI DEMARCO [facility] : 1935 Age /S: 83/F [address] [facility] Unit #: [id number] Loc: [address] Phys: [place] [address] Acct: [id number] Dis Date: Status: REG ER PHONE #: [phone] Exam Date : 12/23/20182141 FAX #: [phone] Reason: FALL EXAMS: CPT CODE: [id number] XR HIP W/PEL UNI 2+[place] [address] <Continued> Orig Print D/T: S: 12/23/2018 (2156) PAGE 2 Signed Report- CT HEAD/BRAIN W/O [id number] 21:45:00 FAX: Silvia ShawJr CHARLES Concrete: St: REG FAX: Nuha Marcano MD [phone] - Name: KADI DEMARCO [facility] : 1935 Age/S: 83/F [address] [facility] Unit: [id number] Loc: [address] Phys: [place] [address] Acct: [id number] Dis Date: Status: REG ER PHONE #: [phone] Exam Date: 12/23/20182138 FAX #: [phone] Reason: head injury EXAMS: CPT CODE: [id number] CT HEAD/BRAIN W/O CONT 21629 CLINICAL HISTORY: Head injury, combative. CT brain, [...] Report (CONTINUED) FAX : Jr Cunningham II [phone] Concrete: St: REG FAX: Nuha Marcano MD [phone] Name: KADI DEMARCO [facility] : 1935 Age/S: 83/F [address] [facility] Unit: [id number] Loc: [address] [place]: [place] [address] Acct: [id number] Dis Date: Status: REG ER PHONE #: [phone] Exam Date: 12/23/20182138 FAX #: [phone] Reason: head injury EXAMS: CPT CODE: [id number] CT HEAD/BRAIN W/O CONT 51053 < Continued> The vertebral bodies are free [...] PAGE 2 Signed Report- CT C-SPINE W/O [id number] 21:45:00 FAX : Jr Cunningham II [phone] Concrete: St: REG FAX: Nuha Marcano MD [phone] Name: KADI DEMARCO [facility] : 1935 Age/S: 83/F [address] [facility] Unit: [id number] Loc: [address] Phys: [place] [address] Acct:[id number] Dis Date: Status: REG ER PHONE #: [phone] Exam Date: 12/23/20182138 FAX #: [phone] Reason: head injury EXAMS: CPT CODE: [id number] CT C-SPINE W/O CONT 54108 CLINICAL HISTORY: Head injury, combative. CT brain, [...] PAGE 1 Signed Report (CONTINUED) FAX: Silvia AdameWilcoxJr II [phone] Concrete: St: REG FAX: Nuha Marcano MD ------ Name: KADI DEMARCO [facility] : 1935 Age/S: 83/F [address] [facility] Unit : [id number] Loc: [address] Phys: [place] [address] Acct: [id number] Dis Date: Status: REG ER PHONE #: [phone] Exam Date: 12/23/20182138 FAX #: [phone] Reason: head injury EXAMS: CPT CODE: [id number] CT C-SPINE W/O CONT 25979 <Continued> The vertebral bodies are free of [...] spondylosis. Multilevel foraminal stenosis. Location: U19 at 2144 Reported and signed by: David Alvarez M.D. CC: Jr Shaw III, MD; Michelle PALACIOS Technologist: YVONNE LOWERY Trnscrd Dt/Tm: 12/23/2018 (2144) Husam Orig Print D/T: S: 12/23/2018 (8 PAGE 2 Signed Report
[2019-03-19] MEDS ORDERED: MORPHINE 4 MG/ML SYR ONE (08:26)
[2019-03-19] MEDS ORDERED: ONDANSETRON 4 MG/2 ML VIAL ONE (08:26)
[2019-03-19 08:44] LABS: Absolute Lymphocytes (CBC) 2.5 K/uL (0.7-4.9); Basophils % 1.3 % (0-1.3); Hematocrit 31.8 % (36.0-45.0); MPV 8.5 fL (7.6-11.3); RBC Red Blood Cell Count 3.34 M/uL (3.86-4.86)
[2019-03-19 09:05] LABS: Albumin 3.1 g/dL (3.4-5.0); Bilirubin Total 0.4 mg/dL (0.2-1.0); Potassium 3.9 mmol/L (3.5-5.1); Protein, Total 6.5 g/dL (6.4-8.2)
--- NOTE | 2019-03-19 09:09 | RAD REPORT ---
EXAM DESCRIPTION: CT - CTHCSPWOC - 03/19/2019 8:41 am CLINICAL HISTORY: Fall, head and neck injury COMPARISON: None. TECHNIQUE: Axial 5 mm thick images of the head were obtained. Axial 2 mm thick images of the cervic al spine were obtained with sagittal and coronal reconstruction images generated and reviewed. All CT scans are performed using dose optimization technique as appropriate and may include automated exposure control or mA/KV adjustment according to patient size. FINDINGS: No intracranial hemorrhage, mass, edema or acute intracranial finding. No acute cortical b ased infarction seen. No cortical edema or sulcal effacement. Prominent atrophy and chronic ischemic changes are present. Ventricles are in proportion to the amount of volume loss. No extra-axial fluid collections. Mastoid air cells and paranasal sinuses are clear. No globe or orbit abnormality seen. Cervical bodies are normal in height. There is straightening of the usual cervical lordosis. T2 anter ior subluxation of 3 mm noted. This is secondary to facet joint degenerative change. Prominent degene rative change at the dens C1 level. Significant disc space narrowing is present C3-C7. No fracture or acute bony abnormality. Significant left C2-3 bony foraminal encroachment from uncovertebral hypertr ophy and facet hypertrophy. Similar changes result in right C3-4 foraminal stenosis. Bilateral bony f oraminal encroachment, worse on the right, at C4-5. Very pronounced bilateral uncovertebral hypertrop hy causing bilateral foraminal stenosis at C5-6 with more moderate left C6-7 foraminal encroachment. Central spinal stenosis changes from endplate spurring at C4-5 and C5-6. Canal diameter is 8-9 mm in the midline. Central canal detail is inherently limited. No paraspinal mass or hematoma. IMPRESSION: Prominent atrophy and chronic ischemic change with no acute intracranial finding. Chronic ischemic changes can mask nonhemorrhagic acute infarction. MR brain followup can be obtained if there is ongoing concern ischemic event triggering patient fall. Advanced cervical spine degenerative changes are present as detailed. No fracture or acute finding id entifiable.
[2019-03-19 09:50] LABS: Protime INR 0.97
[2019-03-19] MEDS ORDERED: MORPHINE 2 MG/ML SYR ONE (10:05)
--- NOTE | 2019-03-19 10:15 | RAD REPORT ---
EXAM DESCRIPTION: RAD - Pelvis - 03/19/2019 9:15 am CLINICAL HISTORY: Fall, left hip pain COMPARISON: February 09, 2019 TECHNIQUE: AP imaging of the pelvis was obtained. FINDINGS: Advanced lower lumbar spine degenerative changes are present only partially imaged on this study. No gross interval change. Sacral ala assessment is limited. There is also no gross change. Osteopenia and overlying bowel rico nt limit sacral ala assessment. Old inferior right ischium fracture is present. No new fracture of th e pelvis identifiable. Proximal right femur shows degenerative change at the joint but no acute findi ng. Proximal left femur fracture is present. Fracture is evident near the base of the femoral neck and li harpal involves the superior aspect of the intertrochanteric femur. Lesser trochanter remains intact. P athologic etiology is not suspected. There may be impaction along the medial margin of the fracture. IMPRESSION: Proximal left femur fracture as detailed. No acute pelvic fracture.
--- NOTE | 2019-03-19 10:18 | RAD REPORT ---
EXAM DESCRIPTION: RAD - Hip Left 2 View - 03/19/2019 9:14 am CLINICAL HISTORY: Fall, left hip pain COMPARISON: Pelvis same date, left hip February 09 FINDINGS: AP and cross-table lateral views were obtained. Fracture is present at the base of the lef t femoral neck probably extending into the intertrochanteric region. No pathologic component seen. Mi ld impaction along the medial margin is suspected. No dislocation of the femoral head. No significant soft tissue finding identified. IMPRESSION: Proximal left femur fracture as detailed.
--- NOTE | 2019-03-19 10:19 | RAD REPORT ---
EXAM DESCRIPTION: RAD - Femur Left - 03/19/2019 9:14 am CLINICAL HISTORY: Fall, left hip pain COMPARISON: Pelvis and left hip films same date FINDINGS: Left femoral neck fracture is separately detailed. No pathologic changes in the intertroch anteric or left femoral neck region. Fracture does appear to extend minimally into the intertrochante minnie region. The remaining portion of the femur shows no acute finding. There are degenerative changes at the knee joint without joint effusion. No air or foreign body in the soft tissues. IMPRESSION: Left femoral neck fracture is present and detailed on separate pelvis and left hip films . Remainder the femur shows no acute finding.
--- NOTE | 2019-03-19 10:21 | ER ---
Nurse's Notes [facility] Name: Sharri Hickman Age: 84 yrs Sex: Female : 1935 Arrival Date: 03/19/2019 Time: 08:13 Bed 18 Private MD: Diagnosis: Intertrochanteric fracture of femur Presentation: 03/19 08:14 Presenting complaint: EMS states: unwitnessed fall at [facility]. Pt c/o aa5 left hip pain. Care prior to arrival: None. Mechanism of Injury: Fall from standing position. Trauma event details: Injury occurred in the [facility], Injury occurred: March 19, 2019. 08:14 Acuity: MISSY 3 aa5 08:14 Method Of Arrival: EMS: [facility] aa5 08:14 Transition of care: patient was received from another setting of care (long-term care [facility]), [facility]. Onset of symptoms was March 19, 2019. Risk Assessment: Do you want to hurt yourself or someone else? Unable to obtain. Initial Sepsis Screen: Does the patient meet any 2 criteria? No. Patient's initial sepsis screen is negative. Does the patient have a suspected source of infection? No. Patient's initial sepsis screen is negative. Trauma Activation: Alert Physician: ED Physician; Name: ; Notified At: ; Arrived At: Physician: General Surgeon; Name: ; Notified At: ; Arrived At: Physician: Radiology; Name: ; Notified At: ; Arrived At: Physician: Respiratory; Name: ; Notified At: ; Arrived At: Physician: Lab; Name: ; Notified At: ; Arrived At: Historical: - Allergies: 08:14 Haldol; aa5 08:14 Lidocaine; aa5 - Home Meds: 08:14 depakote sprinkles 125mg 2 caps PO BID for agitation [Active]; docusate sodium 100 mg aa5 Oral cap 2 caps once daily [Active]; promethazine 25 mg oral tab every 4 hours [Active]; trazodone 50 mg Oral tab at bedtime [Active]; acetaminophen-codeine 300-30 mg oral tab every 6 hours for Pain [Active]; acetaminophen 500 mg Oral tab every 6 hours for Pain [Active]; - PMHx: 08:14 Dementia; Anxiety; Repeated falls; Fx of right pubis; Constipation; aa5 - Immunization history:: Adult Immunizations unknown. - Social history:: Smoking status: unknown. - Immunization history: Last tetanus immunization: unknown. - Ebola Screening: : No symptoms or risks identified at this time. Screenin:33 Abuse screen: No signs of abuse noted. Nutritional screening: No deficits noted. aa5 Tuberculosis screening: No symptoms or risk factors identified. Fall Risk Fall in past 12 months (25 points). Secondary diagnosis (15 points) dementia, IV access (20 points). Total Rosales Fall Scale indicates High Risk Score (45 or more points). Fall prevention measures have been instituted. Side Rails Up X 2 Placed Close to Nursing Station. Primary Survey: 08:15 NO uncontrolled hemorrhage observed. A: The patient is alert. Breathing/Chest: Chest aa5 inspection: symmetrical rise and fall of the chest. Circulation: Skin color: pink. Disability Alert. Exposure/Environment: A warming method has been applied: A warm blanket has been provided to the patient. 08:35 Reassessment Airway Airway Patent Breathing/Chest Respiratory pattern Regular aa5 Respiratory effort Spontaneous Unlabored Circulation Color [place] Disability Alert. Secondary Survey: 08:15 HEENT: No deficits noted. Gastrointestinal: No deficits noted. : No deficits noted. aa5 Musculoskeletal: Reports pain in left hip. Assessment: 08:15 General: Appears uncomfortable, Behavior is calm, cooperative. Pain: Complains of pain aa5 in left hip Unable to use pain scale. Does not appear to understand pain scale. Patient appears restless. Neuro: Level of Consciousness is awake, obeys commands, confused, Oriented to person, place. EENT: No signs and/or symptoms were reported regarding the EENT system. Cardiovascular: Heart tones S1 S2 present Rhythm is regular. Respiratory: Airway is patent Respiratory effort is even, unlabored, Respiratory pattern is regular, symmetrical, Breath sounds are clear bilaterally. GI: Abdomen is flat, Bowel sounds present X 4 quads. Abd is soft X 4 quads. : brief noted. Derm: Skin is pink, warm \T\ dry. Musculoskeletal: Reports pain in left hip. 09:20 Reassessment: Pt back from radiology. Pt's daughter at bedside. Pt is A\T\O x 2, equal aa5 unlabored respirations, skin is pink/warm/dry. . 09:28 Reassessment: pc maintenance technician at bedside collecting labs. . aa5 10:05 Reassessment: Patient reports pain, appears restless. Notified JESSICA Acevedo. Order aj1 received. 10:15 Reassessment: Patient and/or family updated on plan of care and expected duration. Pain aj1 level reassessed. General: Appears in no apparent distress. uncomfortable, Behavior is calm, cooperative. Pain:. Pain: Complains of pain in left hip Unable to use pain scale. Does not appear to understand pain scale. Neuro: Neuro: Level of Consciousness is awake, alert, confused, Oriented to person, place. Cardiovascular: Patient's skin is warm and dry. Rhythm is regular. Respiratory: Airway is patent Respiratory effort is even, unlabored, Respiratory pattern is regular, symmetrical. GI: Abdomen is flat. Derm: Skin is pink, warm \T\ dry. Musculoskeletal: Reports pain in left hip. 10:45 Reassessment: Patient's daughter is concerned that the patient will not be compliant aj1 with rehab if patient has hip surgery. Dr. Gonzales at bedside, notified of patient concerns. 11:35 Reassessment: Patient appears in no apparent distress at this time. No changes from aj1 previously documented assessment. Patient and/or family updated on plan of care and expected duration. Pain level reassessed. 12:30 Reassessment: Patient and/or family updated on plan of care and expected duration. Pain aj1 level reassessed. General: Appears in no apparent distress. uncomfortable, Behavior is restless. Pain: Complains of pain in left hip. Neuro: Level of Consciousness is awake, alert, confused. Cardiovascular: Patient's skin is warm and dry. Respiratory: Airway is patent Respiratory effort is even, unlabored, Respiratory pattern is regular, symmetrical. Derm: Skin is pink, warm \T\ dry. normal. Musculoskeletal: Reports pain in left hip. 13:00 Reassessment: Entered patients room to insert wolfe. Patient's daughter states that she aj1 does not want the wolfe placed because she feels that her mother is too agitated and will pull the catheter out. Notified Dr. Gonzales via telephone. Order received to hold wolfe for now, medicate patient for pain to see if that helps agitation as patient is allergic to Haldol and then reassess to see if daughter will allow for wolfe insertion at a later time. Patient was medicated with Dilaudid 1mg per [facility] orders and was charted in [facility] MAR. 13:20 Reassessment: Attempted to call report to 4th floor. Receiving nurse is unavailable for [facility] report at this time. Will call back to give report. Vital Signs: 08:15 BP 157 / 110; Pulse 72; Resp 18 S; Temp 98.4(TE); Pulse Ox 98% on R/A; aa5 08:34 BP 156 / 79; Pulse 76; Resp 18 S; Temp 98.4(TE); Pulse Ox 97% on R/A; aa5 09:20 BP 153 / 101; Pulse 82; Resp 16 S; Pulse Ox 100% on 2 lpm NC; aa5 10:20 BP 151 / 90; Pulse 84; Resp 18; Pulse Ox 99% on 2 lpm NC; aj1 11:20 BP 166 / 79; Pulse 92; Resp 18; Pulse Ox 96% on 2 lpm NC; aj1 12:20 BP 149 / 88; Pulse 95; Resp 18; Pulse Ox 97% on 2 lpm NC; aj1 13:20 BP 146 / 72; Pulse 95; Resp 20; Pulse Ox 96% on 2 lpm NC; aj1 Justyn Coma Score: 08:15 Eye Response: spontaneous(4). Verbal Response: confused(4). Motor Response: obeys aa5 commands(6). Total: 14. 10:20 Eye Response: spontaneous(4). Verbal Response: confused(4). Motor Response: obeys aj1 commands(6). Total: 14. 11:20 Eye Response: spontaneous(4). Verbal Response: confused(4). Motor Response: obeys aj1 commands(6). Total: 14. 12:20 Eye Response: spontaneous(4). Verbal Response: confused(4). Motor Response: obeys aj1 commands(6). Total: 14. 13:20 Eye Response: spontaneous(4). Verbal Response: confused(4). Motor Response: obeys aj1 commands(6). Total: 14. Trauma Score (Adult): 08:15 Eye Response: spontaneous(1); Verbal Response: confused(1); Motor Response: obeys aa5 commands(2); Systolic BP: > 89 mm Hg(4); Respiratory Rate: 10 to 29 per min(4); [place] Score: 14; Trauma Score: 12 08:34 Eye Response: spontaneous(1); Verbal Response: confused(1); Motor Response: obeys aa5 commands(2); Systolic BP: > 89 mm Hg(4); Respiratory Rate: 10 to 29 per min(4); Justyn Score: 14; Trauma Score: 12 09:20 Eye Response: spontaneous(1); Verbal Response: confused(1); Motor Response: obeys aa5 commands(2); Systolic BP: > 89 mm Hg(4); Respiratory Rate: 10 to 29 per min(4); Justyn Score: 14; Trauma Score: 12 ED Course: 08:13 Patient arrived in ED. aa5 08:14 Arm band placed on Patient placed in an exam room, on a stretcher. aa5 08:14 Patient has correct armband on for positive identification. Bed in low position. Call aa5 light in reach. Side rails up X2. 08:14 Thermoregulation: warm blanket given to patient. aa5 08:15 Triage completed. aa5 08:15 Patient maintains SpO2 saturation greater than 95% on room air. aa5 08:16 Dante Aguillon MD is Attending Physician. kdr 08:18 Jostin Bonilla PA is PHCP. jmm 08:23 Keyla Peter, FRANCISCO is Primary Nurse. aa5 08:31 Initial lab(s) drawn, by wi, sent to lab. Inserted saline lock: 22 gauge in right hand, em1 using aseptic technique. Blood collected. 08:36 Patient moved to radiology via stretcher. aa5 08:42 CT Head C Spine In Process Unspecified. EDMS 09:12 Pelvis XRAY In Process Unspecified. EDMS 09:13 Hip Left 2 View XRAY In Process Unspecified. EDMS 09:13 Chest Single View XRAY In Process Unspecified. EDMS 09:13 Femur Left XRAY In Process Unspecified. EDMS 10:00 Report given to Corazon Dockery RN. aa5 10:20 Justin Gonzales MD is Hospitalizing Provider. jmm 14:11 Report given to FRANCISCO Pérez on 4th floor. aj1 14:39 No provider procedures requiring assistance completed. Patient admitted, IV remains in aj1 place. Administered Medications: 08:31 Drug: Zofran 4 mg Route: IVP; Site: right hand; aa5 08:34 Follow up: Response: No adverse reaction aa5 08:33 Drug: morphine 4 mg Route: IVP; Site: right hand; aa5 08:36 Follow up: Response: No adverse reaction aa5 10:12 Drug: morphine 2 mg {Note: RASS- 1 pt restless at this time.} Route: IVP; Site: left aj1 hand; 11:15 Follow up: Response: No adverse reaction; Pain is decreased; RASS: Alert and Calm (0) [facility] Outcome: 10:20 Decision to Hospitalize by Provider. [facility] 14:40 Admitted to Med/surg accompanied by nurse, accompanied by tech, via stretcher, with [facility] oxygen, with chart. 14:40 Condition: stable 14:40 Discharge instructions given to family, Instructed on the need for admit, Demonstrated understanding of instructions. 14:40 Patient's length of stay in the Emergency Department was greater than 2 hours. due to aj1 no beds on med/surg floorPatient's length of stay extended due to 14:41 Patient left the ED. [facility] Signatures: Dispatcher [employer] EDCorazon Vela RN RN aj1 Dante Aguillon MD MD kdr Mickail, Joel, PA PA jm Jose Juan Rizzo 1 Keyla Peter, RN RN aa5 Corrections: (The following items were deleted from the chart) 11:40 11:06 BP 151 / 90; Pulse 84bpm; Resp 18bpm; Pulse Ox 99% 2 lpm Nasal Cannula; [place] [id number] 13:30 10:20 GCS: 15, [place] [address] 13:30 11:20 GCS: 15, [place] [id number]
--- NOTE | 2019-03-19 10:22 | EDPHYS ---
Physician Documentation [facility] Name: Sharri Hickman Age: 84 yrs Sex: Female : 1935 Arrival Date: 03/19/2019 Time: 08:13 Bed 18 Private MD: ED Physician Dante Aguillon HPI: 03/19 08:18 This 84 yrs old Female presents to ER via EMS with complaints of Fall Injury. jmm 08:18 Details of fall: The patient fell from an upright position, while walking. Onset: The jmm symptoms/episode began/occurred acutely, just prior to arrival. Associated injuries: The patient sustained left hip injury. This is an 84 year old female with a history of anxiety, dementia, that presents to the ED with complaints of left hip pain which occurred after a fall. Patient states she fell as she was walking into her bathroom. Patient states she also hit the left side of her head. Denies LOC, denies vomiting. . Historical: - Allergies: 08:14 Haldol; aa5 08:14 Lidocaine; aa5 - Home Meds: 08:14 depakote sprinkles 125mg 2 caps PO BID for agitation [Active]; docusate sodium 100 mg aa5 Oral cap 2 caps once daily [Active]; promethazine 25 mg oral tab every 4 hours [Active]; trazodone 50 mg Oral tab at bedtime [Active]; acetaminophen-codeine 300-30 mg oral tab every 6 hours for Pain [Active]; acetaminophen 500 mg Oral tab every 6 hours for Pain [Active]; - PMHx: 08:14 Dementia; Anxiety; Repeated falls; Fx of right pubis; Constipation; aa5 - Immunization history:: Adult Immunizations unknown. - Social history:: Smoking status: unknown. - Immunization history: Last tetanus immunization: unknown. - Ebola Screening: : No symptoms or risks identified at this time. ROS: 08:18 Constitutional: Negative for fever, chills, and weight loss, Cardiovascular: Negative jm for chest pain, palpitations, and edema, Respiratory: Negative for shortness of breath, cough, wheezing, and pleuritic chest pain. 08:18 MS/extremity: Positive for injury or acute deformity, pain. 08:18 All other systems are negative. Exam: 08:18 Constitutional: This is a well developed, well nourished patient who is awake, alert, jmm and in no acute distress. Head/Face: atraumatic. Eyes: EOMI, no conjunctival erythema appreciated ENT: Moist Mucus Membranes Neck: Trachea midline, Supple Chest/axilla: Normal chest wall appearance and motion. Cardiovascular: Regular rate and rhythm. No edema appreciated Respiratory: Normal respirations, no respiratory distress appreciated Abdomen/GI: Non distended, soft Skin: General appearance color normal 08:18 Musculoskeletal/extremity: left hip pain on palpation, painful rom noted, internally rotated. full dorsalis pulse, NVI, compartments are soft. 08:18 Skin: Appearance: Color: normal in color. 08:18 Neuro: Orientation: is normal, Mentation: is normal, Memory: is normal. 08:18 Psych: Behavior/mood is pleasant, cooperative. 10:38 ECG was reviewed by the Attending Physician. [facility] Vital Signs: 08:15 BP 157 / 110; Pulse 72; Resp 18 S; Temp 98.4(TE); Pulse Ox 98% on R/A; aa5 08:34 BP 156 / 79; Pulse 76; Resp 18 S; Temp 98.4(TE); Pulse Ox 97% on R/A; aa5 09:20 BP 153 / 101; Pulse 82; Resp 16 S; Pulse Ox 100% on 2 lpm NC; aa5 10:20 BP 151 / 90; Pulse 84; Resp 18; Pulse Ox 99% on 2 lpm NC; aj1 11:20 BP 166 / 79; Pulse 92; Resp 18; Pulse Ox 96% on 2 lpm NC; aj1 12:20 BP 149 / 88; Pulse 95; Resp 18; Pulse Ox 97% on 2 lpm NC; aj1 13:20 BP 146 / 72; Pulse 95; Resp 20; Pulse Ox 96% on 2 lpm NC; aj1 Justyn Coma Score: 08:15 Eye Response: spontaneous(4). Verbal Response: confused(4). Motor Response: obeys aa5 commands(6). Total: 14. 10:20 Eye Response: spontaneous(4). Verbal Response: confused(4). Motor Response: obeys aj1 commands(6). Total: 14. 11:20 Eye Response: spontaneous(4). Verbal Response: confused(4). Motor Response: obeys aj1 commands(6). Total: 14. 12:20 Eye Response: spontaneous(4). Verbal Response: confused(4). Motor Response: obeys aj1 commands(6). Total: 14. 13:20 Eye Response: spontaneous(4). Verbal Response: confused(4). Motor Response: obeys aj1 commands(6). Total: 14. Trauma Score (Adult): 08:15 Eye Response: spontaneous(1); Verbal Response: confused(1); Motor Response: obeys aa5 commands(2); Systolic BP: > 89 mm Hg(4); Respiratory Rate: 10 to 29 per min(4); Justyn Score: 14; Trauma Score: 12 08:34 Eye Response: spontaneous(1); Verbal Response: confused(1); Motor Response: obeys aa5 commands(2); Systolic BP: > 89 mm Hg(4); Respiratory Rate: 10 to 29 per min(4); Justyn Score: 14; Trauma Score: 12 09:20 Eye Response: spontaneous(1); Verbal Response: confused(1); Motor Response: obeys aa5 commands(2); Systolic BP: > 89 mm Hg(4); Respiratory Rate: 10 to 29 per min(4); [place] Score: 14; Trauma Score: 12 MDM: 08:18 Patient medically screened. [facility] 10:19 Data reviewed: vital signs, nurses notes. Counseling: I had a detailed discussion with lenore the patient and/or guardian regarding: the historical points, exam findings, and any diagnostic results supporting the discharge/admit diagnosis, lab results, radiology results, the need for further work-up and treatment in the hospital. ED course: I discussed the patient with Dr. Luu whom will consult on admission. I discussed the patient with Dr. Gonzales whom accepted admission. . 03/19 08:19 Order name: CBC with Diff; Complete Time: 08:54 [facility] 03/19 08:19 Order name: CMP; Complete Time: 09:15 [facility] 03/19 08:19 Order name: Pelvis XRAY; Complete Time: 10:21 [facility] 03/19 08:19 Order name: Hip Left 2 View XRAY; Complete Time: 10:21 [facility] 03/19 08:25 Order name: PT-INR; Complete Time: 09:57 [facility] 03/19 10:09 Order name: Troponin (emerg Dept Use Only); Complete Time: 11:16 jmm 03/19 08:19 Order name: Saline Lock; Complete Time: 08:31 jmm 03/19 08:25 Order name: CT Head C Spine; Complete Time: 09:15 jmm 03/19 08:55 Order name: Chest Single View XRAY; Complete Time: 10:35 jmm 03/19 08:55 Order name: Femur Left XRAY; Complete Time: 10:21 jmm 03/19 10:09 Order name: EKG - Nurse/Tech; Complete Time: 10:38 jmm EC:38 Rate is 75 beats/min. Rhythm is regular. QRS [place] is Normal. VA interval is normal. QRS jmm interval is normal. QT interval is normal. No Q waves. T waves are Normal. No ST changes noted. Reviewed by me. Administered Medications: 08:31 Drug: Zofran 4 mg Route: IVP; Site: right hand; aa5 08:34 Follow up: Response: No adverse reaction aa5 08:33 Drug: morphine 4 mg Route: IVP; Site: right hand; aa5 08:36 Follow up: Response: No adverse reaction aa5 10:12 Drug: morphine 2 mg {Note: RASS- 1 pt restless at this time.} Route: IVP; Site: left aj1 hand; 11:15 Follow up: Response: No adverse reaction; Pain is decreased; RASS: Alert and Calm (0) aj1 Disposition: 14:58 Co-signature as Attending Physician, Dante Aguillon MD I agree with the assessment and kdr plan of care. Disposition: 03/19/19 10:20 Hospitalization ordered by Justin Gonzales for Inpatient Admission. Preliminary diagnosis is Intertrochanteric fracture of femur. - Bed requested for Telemetry/MedSurg (Inpatient). - Status is Inpatient Admission. aj1 - Condition is Stable. - Problem is new. - Symptoms are unchanged. UTI on Admission? No Signatures: Dispatcher [employer] EDMS Amanda Briseno Angela, RN RN aj1 Dante Aguillon MD MD kdr Mickail, Joel, PA PA m Keyla Peter RN RN aa5 Corrections: (The following items were deleted from the chart) 12:03 10:20 Hospitalization Ordered by Justin Gonzales MD for Inpatient Admission. Preliminary bd diagnosis is Intertrochanteric fracture of femur. Bed requested for Telemetry/MedSurg (Inpatient). Status is Inpatient Admission. Condition is Stable. Problem is new. Symptoms are unchanged. UTI on Admission? No. jmm 14:41 12:03 03/19/2019 10:20 Hospitalization Ordered by Justin Gonzales MD for Inpatient aj1 Admission. Preliminary diagnosis is Intertrochanteric fracture of femur. Bed requested for Telemetry/MedSurg (Inpatient). Status is Inpatient Admission. Condition is Stable. Problem is new. Symptoms are unchanged. UTI on Admission? No. bd
--- NOTE | 2019-03-19 10:29 | RAD REPORT ---
EXAM DESCRIPTION: RAD - Chest Single View - 03/19/2019 9:14 am CLINICAL HISTORY: Fall, left hip pain, preop chest COMPARISON: February 09, 2019 TECHNIQUE: AP portable chest image was obtained 0859 hours in supine positioning . FINDINGS: Low lung volumes accentuated baseline fibrotic pattern. No peripheral mass or consolidatio n. In the setting of mild interstitial edema or infiltrate could be masked. Heart size is not enlarge d. Significant failure or volume overload are doubtful. No measurable pleural effusion and no pneumot horax. No acute bony abnormality seen. No acute aortic findings suspected. IMPRESSION: Fibrotic lung pattern accentuated by portable technique and shallow inspiration. Significant failure or volume overload are doubtful.
[2019-03-19] MEDS ORDERED: ACETAMINOPHEN 500 MG TAB PO PRN (12:46)
[2019-03-19] MEDS ORDERED: ONDANSETRON 4 MG/2 ML VIAL IV PRN (12:46)
[2019-03-19] MEDS: HYDROMORPHONE HCL 1 MG/ML INJ IV PRN (13:03)
--- NOTE | 2019-03-19 14:27 | EKG ---
Test Date: 2019-03-19 Test Time: 10:24:09 Lead Systems Architect: ERIC MEASUREMENT RESULTS: Intervals: Rate: 75 OR: 180 QRSD: 74 QT: 386 QTc: 431 [place]: P: 82 OR: 180 QRS: 67 T: 59 INTERPRETIVE STATEMENTS: Normal sinus rhythm Normal ECG Compared to ECG 02/09/2019 19:54:14 Atrial premature complex(es) no longer present Electronically Signed On 03-19-19 14:26:19 CDT by Arcenio Adkins
[2019-03-19] MEDS: D5.45NS W/KCL 20MEQ 1,000 ML IV SCH (15:06)
--- NOTE | 2019-03-19 17:13 | P.CNS ---
Date of Consult: 03/19/19 Reason for Consult: Fractured left hip Requesting Physician: Justin Gonzales Chief Complaint: Left hip pain History of Present Illness: This patient comes to the emergency department after an unwitnessed fall in the bathroom of her [facility]. She is complaining of severe left hip pain. The patient has been moved from one nursing facility to another while she has been recuperating from pubic rami fractures that occurred approximately two months ago. Her daughter indicates the ambulation is not planned for her mother in the future because of her increasing dementia. Allergies haloperidol Adverse Reaction (Verified 02/10/19 02:44) Rash lidocaine Adverse Reaction (Verified 02/10/19 02:44) Rash Home Medications: Acetaminophen 500 mg PO Q6HP PRN 03/19/19 Acetaminophen with Codeine [Tylenol with Codeine #3 Tablet] 1 tab PO Q6HP PRN Divalproex Sodium [Depakote] 2 cap PO BID 03/19/19 Docusate Sodium 2 cap PO DAILY 03/19/19 Promethazine HCl 25 mg PO Q4HP PRN 03/19/19 Trazodone [Desyrel*] 50 mg PO BEDTIME 03/19/19 - Past Medical/Surgical History Diabetic: No -: Ovarian Cancer -: Dementia -: Kidney Failure -: Right Pelvic Fracture -: Hysterectomy -: Uterine suspension - Social History Smoking Status: Unknown if ever smoked Alcohol use: No CD- Drugs: No Caffeine use: No Place of Residence: [facility] Review of Systems 10-point ROS is otherwise unremarkable Physical Examination Temp Pulse Resp BP Pulse Ox 98.4 F 95 H 16 146/72 H 94 03/19/19 08:34 03/19/19 13:20 03/19/19 15:00 03/19/19 13:20 03/19/19 15:00 General: Demented, Unresponsive, Other (The patients daughter is giving history as she describes her mother did not get pain relief from morphine in the emergency department but just received a more powerful medication upon arrival on the fourth floor.) HEENT: Atraumatic, Normocephalic Neck: Supple (head & neck negative on CT scan) Cardiovascular: Regular rate/rhythm, Abnormal pulses (Thready DP pulses bilaterally) Capillary refill: >2 Seconds Gastrointestinal: Soft and benign, Non-distended Neurological: Sensation intact (Patient aware of foot exam and voiced complaints without significant left hip movement), Dementia (Daughter indicates dementia were much worse since pelvic rami fracture. Patient tried to escape, but less so since recent medication changes) Urinary: Jameson catheter External genitalia: Deferred Rectal: Deferred Laboratory Data (last 24 hrs) 03/19/19 09:32: PT 11.5, INR 0.97 03/19/19 08:25: Sodium 143, Potassium 3.9, BUN 19 H, Creatinine 1.08, Glucose 89 , Total Bilirubin 0.4, AST 20, ALT 18, Alkaline Phosphatase 73 03/19/19 08:25: WBC 6.3, Hgb 10.6 L, Hct 31.8 L, Plt Count 156 Imagings Data: Left hip and femur films have shown basicervical/intratrochanteric fracture of the left proximal femur, closed and displaced. Chest x-ray and Head&neck CT scan reviewed. - Problems (1) Closed displaced intertrochanteric fracture of left femur Current Visit: Yes Status: Acute Qualifiers: Encounter type: initial encounter Qualified Code(s): S72.142A - Displaced intertrochanteric fracture of left femur, initial encounter for closed fracture Conclusions/Impression: This patient has a closed displaced intertrochanteric left femur fracture, and will be taken to surgery tomorrow morning for an intramedullary nail fixation. All risks and benefits were discussed at length with the patients daughter and she has elected to proceed with the surgery.
[2019-03-19] MEDS: DIVALPROEX NA 125 MG CAP PO SCH (21:00)
[2019-03-19] MEDS: TRAZODONE 50 MG TABLET PO SCH (21:00)
[2019-03-19] MEDS ORDERED: DIVALPROEX SODIUM PO SCH (21:00)
--- NOTE | 2019-03-19 22:35 | HP ---
Date of Admission: 03/19/2019 Primary Care Physician: At the nursing facility, Dr. Sigala. Basket Maker: Dr. Luu with Orthopedics. Chief Complaint: Mechanical fall, hip fracture. History Of Present Illness: Patient is an 84-year-old female with past medical history of dementia a nd at time psychosis and delirium, comes in from the nursing facility status post fall. Patient was recently in the hospital on February 09 with a fall and found to have a pubic rami fracture which was no noperative. Patient apparently was on hospice at that time, has since then been taken off hospice an d was actually doing some level of rehab. The family was contacted by the nursing facility stating t hat the patient had gotten up by herself and fell. Patient has dementia, is unable to give a good hi story supplemented from daughter, ER physician, staff and previous notes. Patient's symptoms include d pain on the left side, left lower extremity, constant, moderate, progressively worsening. No allev iating factors, worse with movement. Patient was brought into the ER from the nursing facility. Her workup revealed a left hip intertrochanteric fracture. CT scan of the head and cervical spine did n ot show any acute intracranial finding. Patient was then referred for admission. She received a tot al of 6 mg of morphine, however, still having pain and somewhat agitated. Dr. Luu with Orthopedic Surgery was consulted by the ER. When seen in the ER, she was awake, alert, oriented to self and pl [place], in moderate distress. Past Medical History: Dementia, psychosis. Past Surgical History: Patient has had a bladder suspension. Allergies: HALOPERIDOL AND LIDOCAINE. Medications: List reviewed. Social History: Patient is a resident of nursing facility. No history of smoking or tobacco use. P juancho has good family support. Family History: Noncontributory in this 84-year-old female. Review of Systems: Difficult to obtain due to patient's dementia; however, other than HPI, overall negative. Physical Examination: Vital Signs: Blood pressure 157/110, pulse 72, respirations 18, temperature 98.4, O2 of 98% on room air. General: Awake, alert, oriented x2, in some mild distress. Elderly female, somewhat agitated in richar n. HEENT: Normocephalic, atraumatic. PERRLA. EOMI. Moist mucous membranes. Oropharynx is clear. Po or dentition. Conjunctiva is anicteric. Neck: Supple. No JVD. Trachea midline. CV: S1, S2. Peripheral pulses present. Regular rate and rhythm. Respiratory: Moving air well bilaterally. No wheezing or stridor. No use of accessory muscles. Gastrointestinal: Abdomen is soft, nontender, nondistended. Positive bowel sounds. No guarding or rigidity. Extremities: No clubbing, cyanosis, or edema. No calf tenderness. Musculoskeletal: Left lower extremity tenderness to palpation around the pelvis area. Pain with ran ge of motion. Neuro: Cranial nerves 2 through 12 intact grossly. No focal neurological deficit. Speech is normal . Strength is symmetric. Major muscle groups. Sensation intact to light touch. Skin: No rashes. Normal skin turgor. Laboratory Data: WBC 6.3, H and H 10.6 and 31.8, platelets 156, neutrophils 49%. INR 0.97. Sodium 143, potassium 3.9, chloride 111, CO2 of 26, BUN 19, creatinine 1.08, glucose 89, calcium 8.2. Imaging Studies: CT head and cervical spine shows prominent atrophy and chronic ischemic change with no acute intracranial finding. Advanced cervical spinal degenerative changes are present as detaile d. No fracture or acute finding identifiable. Femur x-ray shows left femoral neck fracture. Chest x-ray, fibrotic lung pattern accentuated by portable technique and shallow inspiration, significant f ailure or volume overload are doubtful. Pelvis x-ray, proximal left femur fracture as detailed. No a cute pelvic fracture. Patient has osteopenia and old inferior right ischemic fracture present. Hip x-ray, proximal left femur fracture as detailed. Films were personally reviewed. Assessment: An 84-year-old female with: 1.Left femoral neck fracture, closed, nondisplaced. Patient will be evaluated by Orthopedic Surgery , Dr. Luu. Patient's family, daughter is the medical power of insulator cutter and former as the patient has dementi a, unable to make her own decisions. Patient was initially on hospice last month, was taken off. Ho wever, family is concerned that the patient is unable to participate heavily in rehab and is consider ing possibility of nonoperative management with palliative care, however, wants to discuss further [facility] surgeon. For now, we will adjust pain medications. Patient was unable to tolerate pain with morp ganesh. We will change to Dilaudid. Start on IV fluids, n.p.o. after midnight for possible surgery. 2.Mechanical fall. We will place on fall precautions and bedrest. 3.Cervical spinal stenosis. CT cervical spine did not show any fractures. 4.Dementia, Alzheimer's type, early onset without behavioral disturbance. 5.Normocytic normochromic anemia. Hemoglobin is 10.6. We will continue to monitor. We will antici ruffin drop in hemoglobin due to fracture. 6.Deep venous thrombosis prophylaxis with Lovenox. Plan: Admit the patient to Med-Surg, place as inpatient. Length of stay greater than 2 midnights. Code status is do not resuscitate. Daughter is the medical power of insulator cutter and former. CAMPBELL Voice ID: [id number]
[2019-03-20] MEDS: HYDROMORPHONE HCL 1 MG/ML INJ IV PRN (01:27)
[2019-03-20] MEDS: D5.45NS W/KCL 20MEQ 1,000 ML IV SCH ×2 (02:06→20:00)
[2019-03-20 06:06] LABS: Absolute Lymphocytes (CBC) 2.1 K/uL (0.7-4.9); Basophils % 1.4 % (0-1.3); Hematocrit 31.4 % (36.0-45.0); Lymphocytes % 24.2 % (15.3-44.8); MPV 8.9 fL (7.6-11.3); RBC Red Blood Cell Count 3.28 M/uL (3.86-4.86)
[2019-03-20 06:32] LABS: Bilirubin Total 0.5 mg/dL (0.2-1.0); Potassium 4.4 mmol/L (3.5-5.1); Protein, Total 6.5 g/dL (6.4-8.2)
[2019-03-20] MEDS ORDERED: TRANEXAMIC ACID 1,000 MG in NA CHLORIDE 0.9% 50 ML IV ONE ×4 (07:00)
[2019-03-20] MEDS ORDERED: CEFAZOLIN/SWI 1gm 1 GM/10 ML SYR IV SCH (07:00)
[2019-03-20] MEDS ORDERED: Ringers Lactate 1,000 ML IV ONE (07:27)
[2019-03-20] MEDS ORDERED: CEFAZOLIN/SWI 1gm 1 GM/10 ML SYR ONE (07:42)
[2019-03-20] MEDS ORDERED: ROCURONIUM 50 MG/5 ML VIAL IV ONE (08:25)
[2019-03-20] MEDS ORDERED: PROPOFOL 200 MG/20 ML VIAL IV ONE (08:25)
[2019-03-20] MEDS ORDERED: FENTANYL CITR 100 MCG/2 ML ONE (08:25)
[2019-03-20] MEDS: DIVALPROEX NA 125 MG CAP PO SCH ×3 (09:00→21:00)
[2019-03-20] MEDS: DOCUSATE NA 100 MG CAP PO SCH (09:00)
[2019-03-20] MEDS ORDERED: GLYCOPYRROLATE 0.2 MG/ML SYR ONE (09:56)
[2019-03-20] MEDS ORDERED: NEOSTIGMINE 1 MG/ML -10 ML VIAL ONE (09:56)
[2019-03-20] MEDS ORDERED: ONDANSETRON 4 MG/2 ML VIAL ONE (09:58)
[2019-03-20] MEDS ORDERED: KETOROLAC 30 MG/ML INJ ONE (10:18)
[2019-03-20] MEDS ORDERED: SUCCINYLCHOLINE 20 MG/ML (10 ML) IV ONE (10:27)
[2019-03-20] MEDS: HYDROMORPHONE HCL 1 MG/ML INJ ONE ×2 (10:44→10:52)
[2019-03-20 11:01] LABS: Hematocrit 32.4 % (36.0-45.0)
[2019-03-20] MEDS ORDERED: HYDROMORPHONE HCL 1 MG/ML INJ ONE (11:07)
--- NOTE | 2019-03-20 13:18 | RAD REPORT ---
EXAM DESCRIPTION: RAD - Hip In Or - 03/20/2019 12:58 pm CLINICAL HISTORY: LEFT HIP DONE IN OR 5 WITH DOCTOR PARNELL COMPARISON: Pelvis dated 03/19/2019 FINDINGS: Fluoroscopy time 2.1 minutes.
--- NOTE | 2019-03-20 13:28 | P.BOP ---
Preoperative diagnosis: LEFT HIP BASICERVICAL/IT FEMUR FRACTURE Postoperative diagnosis: LEFT HIP BASICERVICAL/IT FEMUR FRACTURE Primary procedure: INSERTION OF LEFT HIP IM NAIL FOR IT HIP FRACTURE Hand Folder: Abisai Luu Estimated blood loss: 250 mL Specimen: NONE Findings: IT FRACTURE LEFT HIP Anesthesia: General Complications: None Implants: [id number]* [id number];LAG SCREW 10.5X85mm;AR SCREW 70mm;DISTAL SCREW 5.0X34mm Transferred to: Recovery Room Condition: Good
[2019-03-20] MEDS: CEFAZOLIN/SWI 1gm 1 GM/10 ML SYR IV SCH ×2 (15:01→20:02)
[2019-03-20] MEDS: MORPHINE 2 MG/ML SYR IV PRN (18:34)
--- NOTE | 2019-03-20 19:30 | PN ---
Date of Progress Note: 03/20/2019 Subjective: Patient is seen and examined. Chart reviewed and case discussed with RN and Dr. Luu. The patient did well postoperatively. Currently somnolent due to post anesthesia. Medications: List reviewed. Physical Examination: Vital Signs: Temperature 97.4, heart rate 85, blood pressure 117/60, respirations 16, O2 at 93% on 1 .5 L via nasal cannula. General: Asleep but arousable elderly female, not in any acute distress. CV: S1, S2. Regular rate and rhythm. Peripheral pulses present. Respiratory: Moving air well bilaterally. No wheezing or stridor. Gastrointestinal: Abdomen is soft, nontender, nondistended. Positive bowel sounds. Extremities: No clubbing, cyanosis, or edema. Neurologic: Nonfocal. Musculoskeletal: Left hip incision site clean, dry, intact. Laboratory Data: Sodium 141, potassium 4.4, chloride 108, CO2 of 26, BUN 26, creatinine 1.26, glucos e 97, calcium 8.3. WBC 8.8, H and H of 10.5 and 31.4, platelets 139. Assessment And Plan: An 84-year-old female with: 1.Left femoral neck fracture, closed, nondisplaced, status post open reduction and internal fixation , postoperative day #0. Appreciate Dr. Luu's input. We will start on deep venous thrombosis prop hylaxis 24 hours post surgery. 2.Mechanical fall. Continue with fall precautions. We will continue with PT once more alert. 3.Cervical spinal stenosis. 4.Dementia, Alzheimer's type, early onset without behavioral disturbance, stable. 5.Normocytic, normochromic anemia. Hemoglobin currently stable. We will continue to monitor and tr ansfuse for hemoglobin less than 7. 6.Deep venous thrombosis prophylaxis with Lovenox. We will start 24 hours post surgery. Plan: PT consultation depending on patient may or not be a good candidate for rehab, alternative [facility] to half-way facility. SA/MODL Voice ID: [id number] Report ID: [id number]
[2019-03-20] MEDS: TRAMADOL HCL 50 MG TAB PO PRN (20:02)
[2019-03-20] MEDS: TRAZODONE 50 MG TABLET PO SCH ×2 (20:02→21:00)
[2019-03-21] MEDS: MORPHINE 2 MG/ML SYR IV PRN ×2 (00:43→05:47)
[2019-03-21 02:57] LABS: Urine Appearance CLOUDY; Urine Bilirubin NEGATIVE (NEG); Urine Blood TRACE (NEG); Urine Color YELLOW; Urine Glucose NEGATIVE (NEG); Urine Protein 1+ (NEG); Urine Specific Gravity >=1.030 (1.005-1.030); Urine Urobilinogen 0.2 mg/dL (0.2-1.0)
[2019-03-21 03:30] LABS: Urine Amorphous Sediment 1+ /HPF (NONE SEEN); Urine Bacteria <20 /HPF (<20); Urine Culture Reflex Order REFLEXED; Urine RBC <5 /HPF (NONE SEEN)
[2019-03-21] MEDS: D5.45NS W/KCL 20MEQ 1,000 ML IV SCH (04:21)
[2019-03-21 06:02] LABS: Absolute Lymphocytes (CBC) 1.7 K/uL (0.7-4.9); Basophils % 1.1 % (0-1.3); Hematocrit 28.5 % (36.0-45.0); Lymphocytes % 18.7 % (15.3-44.8); MPV 8.6 fL (7.6-11.3); RBC Red Blood Cell Count 2.98 M/uL (3.86-4.86)
[2019-03-21 06:23] LABS: Albumin 2.8 g/dL (3.4-5.0); Bilirubin Total 0.5 mg/dL (0.2-1.0); Protein, Total 6.4 g/dL (6.4-8.2)
[2019-03-21] MEDS ORDERED: BISACODYL 10 MG RECTAL SUPP PR PRN (07:56)
[2019-03-21] MEDS: HYDROMORPHONE HCL 1 MG/ML INJ IV PRN ×2 (08:33→16:23)
[2019-03-21] MEDS: ENOXAPARIN 30 MG/0.3 ML SQ SCH (08:35)
[2019-03-21] MEDS: DIVALPROEX NA 125 MG CAP PO SCH ×2 (08:35→21:50)
[2019-03-21] MEDS: DOCUSATE NA 100 MG CAP PO SCH (08:35)
[2019-03-21] MEDS ORDERED: ENOXAPARIN 40 MG/0.4 ML SQ SCH (09:00)
[2019-03-21] MEDS: D5 0.45 NS 1,000 ML IV SCH ×2 (09:07→21:51)
[2019-03-21] MEDS ORDERED: WATER FOR INJ,STERILE 10 ML IM PRN (10:44)
[2019-03-21] MEDS ORDERED: ZIPRASIDONE MESYLA 20 MG/VIAL IM PRN (10:44)
--- NOTE | 2019-03-21 13:38 | P.PN ---
Date of Service: 03/21/19 (POD#1) S: Patient is sedated with recent IV pain medication. Difficult to awaken.Patient is sedated with recent IV pain medication. Difficult to awaken. O: VSS, AFEBRILE, PAIN CHART 0,0,0,10,0/10; HGB 9.6 Down from 10.6 postop; WBC 9.2, Neut 68%. INCISIONS C,D & I. Dorsal pedis pulse is weak and thready, but present. Capillary filling is greater than two seconds. Physical therapy worked with a patient this morning, note is not yet available for review. A: Patient making slow progress day one after surgery as expected. P: Continue mobilization as tolerated. Plan return to [facility] as per family.
--- NOTE | 2019-03-21 14:38 | PN ---
Date of Progress Note: 03/21/2019 Subjective: Patient seen and examined. Chart reviewed and case discussed with RN and Dr. Luu. T he patient tolerated the procedure well. The patient does appear to be very agitated. Daughter requ esting something stronger for pain. Medications: List reviewed. Physical Examination: Vital Signs: Temperature 99.3, heart rate 99, blood pressure 152/76, respirations 20, O2 96% on 1.5 L via nasal cannula. General: Awake, alert, oriented to self, elderly female, agitated. CV: S1, S2. Regular rate and rhythm. Peripheral pulses present. Respiratory: Moving air well bilaterally. No wheezing or stridor. Gastrointestinal: Abdomen is soft, nontender, nondistended. Positive bowel sounds. No guarding or rigidity. Extremities: No clubbing, cyanosis, or edema. Skin: Left hip incision site is clean, dry, intact. Neurologic: Nonfocal. Laboratory Data: Sodium 143, potassium 5, chloride 109, CO2 of 26, BUN 29, creatinine 1.47, glucose 98, calcium 8.1, albumin 2.8. WBC 9.2, H and H of 9.6 and 28.5, platelets 109. Urine culture pendin g. UA; negative nitrite, 2+ leukocyte esterase, 10 to 20 wbc's, less than 20 bacteria. Assessment And Plan: An 84-year-old female with: 1.Left femoral neck fracture, closed, nondisplaced, status post open reduction and internal fixation postoperative day #1. We will start on deep venous thrombosis prophylaxis with Lovenox. Continue w ith pain control. The patient's morphine is not controlling the pain and we will switch to Dilaudid. 2.Status post mechanical fall. Continue with fall precautions. Continue with PT. 3.Cervical spinal stenosis. 4.Acute delirium, likely secondary to anesthesia and worsening dementia. We will give Geodon p.r.n. 5.Dementia Alzheimer's type, early onset with behavioral disturbance. 6.Normocytic, normochromic anemia. Hemoglobin stable. We will continue to monitor. Transfuse for hemoglobin less than 7. 7.Deep venous thrombosis prophylaxis with Lovenox. SA/MODL Voice ID: [id number] Report ID: [id number]
--- NOTE | 2019-03-21 20:44 | OP ---
Surgeon: Abisai Luu MD Railroad Purchasing Agent: Dr. Abisai Luu. Postoperative Diagnosis: Left hip basicervical/intertrochanteric femur fracture. Postoperative Diagnosis: Left hip basicervical/intertrochanteric femur fracture. Procedure: Insertion of left intramedullary nail for intertrochanteric hip fracture. Indications: This 84-year-old patient has fallen and suffered a fracture at the very base of the cer vical neck extending into the intertrochanteric area. After discussion of risks and benefits with al harvinder questions answered, the patient and family have elected to proceed with intramedullary nail fixatio n for this hip fracture. Technique: The patient was taken to the operating room and given a general anesthesia. Time-out was called and all pertinent information was discussed. It was decided to proceed with the planned oper ation. The patient was moved from the bed to the fracture table with a post between the legs in trac tion for each foot. Reduction was carried out with traction and C-arm verified adequate reduction fo r intramedullary nail fixation. The left hip was prepped from the rib cage to below the knee lateral ly and a vertical isolation drape was applied. The incision was made proximal to the topical greater trochanter just above the left hip. This incision was approximately 3 cm in length with sharp and b chaitanya dissection to the tip of the greater trochanter, the operative bony site was exposed. A cannula sonya awl was placed at the superior tip of the greater trochanter and it entered into the intertrochan teric area. A beaded guide pin was placed through the cannulated awl down through the intramedullary canal to the knee just above the patella in an Affixus 125 degrees 9 mm x 180 mm hip nail was tapped into place as verified by the C-arm evaluation. The outrigger was used to approximate the location for the skin incision for insertion of the lag screw and again sharp and blunt dissection carried kings n to the lateral femoral cortex allowed insertion of the cannulated guide for the guide pin insertion . The guide pin was inserted and measured in the 85 mm, 10.5 diameter lag screw was chosen. After r eaming, the 10.5 x 85 mm lag screw was inserted and position was verified with C-arm. An antirotatio n screw 70 mm in length was chosen and after drilling through the anti-rotational screw guide, it was inserted to firmly encounter the lateral cortex. Position for both screws was again verified with C -arm. Then attention was turned to the distal interlocking screw insertion. A 1 cm incision was mad e in that spot and with blunt dissection, the drill was placed in the guide and used to drill through both cortexes and through the distal interlocking aperture. The 5.0 x 34 mm cortical screw was chos en and inserted and the C-arm verified adequate position for all screws and hip nail. Irrigation was then carried out and #1 Vicryl was used for closure of fascial layers and 2-0 Vicryl was used for cl osure of subcutaneous layers in the proximal 2 incisions. Skin laura were used to close skin at ea ch incision. At that time, the Aquacel bandages were applied, 1 over the 2 distal incisions and 1 ov er the proximal incision. The patient was taken from the fracture table and replaced on the hospital bed and taken to the recovery room having tolerated this procedure well. The patient had approximat greg 250 mL of blood loss during this procedure. No injectable was used as the patient is allergic to lidocaine. AL/XANDER Voice ID: [id number] Report ID: [id number]
[2019-03-21] MEDS: TRAMADOL HCL 50 MG TAB PO PRN (21:51)
[2019-03-21] MEDS: TRAZODONE 50 MG TABLET PO SCH (21:51)
[2019-03-22] MEDS ORDERED: NA CHLORIDE 0.9% 1,000 ML IV SCH (01:00)
[2019-03-22] MEDS: HYDROMORPHONE HCL 1 MG/ML INJ IV PRN ×2 (01:12→07:09)
[2019-03-22 04:21] LABS: Hematocrit 25.3 % (36.0-45.0)
[2019-03-22 04:36] LABS: Potassium 4.2 mmol/L (3.5-5.1)
[2019-03-22] MEDS: METOPROLOL TAR 25 MG TAB PO SCH ×2 (06:07→17:06)
[2019-03-22] MEDS: ENOXAPARIN 30 MG/0.3 ML SQ SCH (08:29)
[2019-03-22] MEDS: DOCUSATE NA 100 MG CAP PO SCH (08:29)
[2019-03-22] MEDS: DIVALPROEX NA 125 MG CAP PO SCH ×2 (08:29→22:11)
--- NOTE | 2019-03-22 10:44 | ECHO ---
HEIGHT: 5 ft 3 in WEIGHT: 142 lb 11.2 oz DATE OF STUDY: 03/22/[address]: Shahida Cash MD 2-DIMENSIONAL: YES M.MODE: YES DOPPLER: YES COLOR FLOW: YES TDS: PORTABLE: DEFINITY: BUBBLE STUDY: DIAGNOSIS: ATRIAL FIBRILLATION, SUPRAVENTRICULAR TACYHCARDIA CARDIAC HISTORY: CATHERIZATION: NO SURGERY: NO PROSTHETIC VALVE: NO PACEMAKER: NO MEASUREMENTS (cm) DIASTOLIC (NORMALS) SYSTOLIC (NORMALS) IVSd 1.0 (0.6-1.2) LA Diam 3.2 (1.9-4.0) LVEF 65% LVIDd 3.6 (3.5-5.7) LVIDs 2.4 (2.0-3.5) %FS 35% LVPWd 1.1 (0.6-1.2) Ao Diam 2.9 (2.0-3.7) 2 DIMENSIONAL ASSESSMENT: RIGHT ATRIUM: NORMAL LEFT ATRIUM: NORMAL RIGHT VENTRICLE: NORMAL LEFT VENTRICLE: NORMAL TRICUSPID VALVE: NORMAL MITRAL VALVE: NORMAL PULMONIC VALVE: NORMAL AORTIC VALVE: NORMAL PERICARDIAL EFFUSION: NONE AORTIC ROOT: NORMAL LEFT VENTRICULAR WALL MOTION: NORMAL DOPPLER/COLOR FLOW: MILD AORTIC, MITRAL AND TRICUSPID REGURGITATION. NORMAL RIGHT VENTRICULAR SYSTOLIC PRESSURE. COMMENTS: NORMAL 2-DIMESIONAL ECHOCARDIOGRAM. MILD AORTIC, MITRAL AND TRICUSPID REGURGITATION. SINUS RHYTHM. TECHNOLOGIST: ZACK HERMAN
[2019-03-22] MEDS: D5 0.45 NS 1,000 ML IV SCH (11:40)
--- NOTE | 2019-03-22 12:34 | P.PN ---
Date of Service: 03/22/19 (POD#3) S: Patient is awake with vociferous c/o pain with movement of LLE. Nearly 6 hrs since last pain med given. Daughter attempting to move patient. O: VSS, AFEBRILE, PAIN CHART 0,0,4,0,0/10; HGB 9.6 Down from 10.6 postop; WBC 9.2, Neut 68%. INCISIONS C,D & I. Dorsal pedis pulse is weak and thready, but present. Capillary filling is greater than two seconds. Patient does not demonstrate active dorsiflexion of left toes or ankle this afternoon. She does not respond to pinch in the first webspace. She also does not tolerate circumduction even with minor circles. Reviewed films at termination of procedure done by C-arm with optimal appearance of position for IM nail, lag screw, anti-rotational screw, and distal interlocking screw. Physical therapy worked with the patient this morning, note is not yet available for review. A: Patient making slow progress after surgery with more pain than expected. P: I have requested follow-up x-rays of the left hip. IV dose of 0.5 mg Dilaudid authorized prior to x-ray of left hip. limit therapy to sitting on the edge of the bed as tolerated. Plan return for follow-up exam this evening.
[2019-03-22] MEDS: HYDROMORPHONE HCL 0.5 MG/0.5 ML INJ IV PRN (12:47)
--- NOTE | 2019-03-22 15:24 | RAD REPORT ---
EXAM DESCRIPTION: RAD - Hip Left 2 View - 03/22/2019 3:10 pm CLINICAL HISTORY: Left hip pain, fracture COMPARISON: Multiple views the left hip were obtained obtained and compared the postoperative images of March 20. FINDINGS: No hardware fracture. No migration of the hardware identifiable. Images were not optimally positioned. Patient was unable to tolerate optimal positioning due to pain. Alignment and position o f the hardware and fracture fragments does not appear to have changed. No new fracture seen. IMPRESSION: Patient positioning was not optimal. Alignment and position of the fracture fragments an d hardware is not grossly changed from the medial postoperative imaging.
[2019-03-22] MEDS ORDERED: RISPERIDONE 0.25 MG TABLET PO PRN (17:00)
--- NOTE | 2019-03-22 20:58 | PN ---
Date of Progress Note: 03/22/2019 Subjective: The patient is now very much somnolent, has not worked with PT yet. The case discussed with Dr. Luu. Medications: List reviewed. Physical Examination: Vital Signs: Temperature 97.8, heart rate 82, blood pressure 120/73, respirations 16, O2 of 98% on 1 .5 L via nasal cannula. General: Asleep, but arousable, elderly female, not in any acute distress, confused. CV: S1, S2. Peripheral pulses present. Respiratory: Diminished breath sounds at the bases. No wheezing or stridor. Gastrointestinal: Abdomen is soft, nontender, nondistended. Positive bowel sounds. Extremities: No clubbing, cyanosis, or edema. Skin: Incision site clean, dry, intact on the left. Laboratory Data: Sodium 139, potassium 4.2, chloride 107, CO2 of 25, BUN 24, creatinine 1.18, glucos e 94, calcium 8. H and H are 8.4 and 25.3. Urine culture, no growth. Hip x-ray shows patient's pos itioning nonoptimal, alignment and position of the fracture fragments and hardware is not grossly jamey nged from the medial postoperative imaging. Assessment: An 84-year-old female with: 1.Left femoral neck fracture, closed, nondisplaced, status post open reduction and internal fixation , postoperative day #2. Continue with Lovenox for deep venous thrombosis prophylaxis. Adjust pain m edications. The patient is very somnolent. 2.Status post mechanical fall. Continue with PT eval. 3.Cervical spinal stenosis. 4.Acute delirium secondary to anesthesia and dementia. We will start her on Risperdal. 5.Dementia, Alzheimer's type, early onset with behavioral disturbance. 6.Normocytic normochromic anemia. Hemoglobin stable. Continue to monitor and transfuse for less th an 7. 7.Deep venous thrombosis prophylaxis with Lovenox. Plan: PT eval, will likely need [facility] facility versus rehab placement. SA/MODL Voice ID: [id number] Report ID: [id number]
[2019-03-22] MEDS: TRAMADOL HCL 50 MG TAB PO PRN (22:11)
[2019-03-22] MEDS: TRAZODONE 50 MG TABLET PO SCH (22:11)
[2019-03-23] MEDS: D5 0.45 NS 1,000 ML IV SCH ×2 (01:00→15:27)
[2019-03-23] MEDS: HYDROMORPHONE HCL 0.5 MG/0.5 ML INJ IV PRN ×3 (02:23→16:42)
[2019-03-23] MEDS ORDERED: DIGOXIN 0.25 MG/ML AMP IV ONE (02:43)
[2019-03-23 04:17] LABS: Hematocrit 24.3 % (36.0-45.0)
[2019-03-23] MEDS: METOPROLOL TAR 25 MG TAB PO SCH ×2 (05:30→17:02)
--- NOTE | 2019-03-23 07:46 | EKG ---
Test Date: 2019-03-23 Test Time: 02:32:37 Post Tensioning Ironworker Helper: RT MEASUREMENT RESULTS: Intervals: Rate: 124 TN: QRSD: 76 QT: 292 QTc: 419 [place]: P: TN: QRS: -7 T: 25 INTERPRETIVE STATEMENTS: Atrial fibrillation with rapid ventricular response Abnormal ECG Compared to ECG 03/19/2019 10:24:09 Sinus rhythm no longer present Electronically Signed On 03-23-19 07:45:42 CDT by Arcenio Adkins
--- NOTE | 2019-03-23 08:44 | P.PN ---
Date of Service: 03/23/19 Patient had an episode of atrial fibrillation with rapid ventricular response. Notified the patient's blood pressure was 80s-90s/60s. Patient's renal function and electrolytes are normal. Echocardiogram done yesterday- report was reviewed. Patient was given 1 dose of digoxin 0.5mg IVP X 1 for rate control. Patient on DVT prophylaxis dose of Lovenox. May need full anticoagulation. Patient is slightly confused. Will need to further assess bleeding risk with orthopedic. Consult cardiology.
[2019-03-23] MEDS: DIVALPROEX NA 125 MG CAP PO SCH (09:11)
[2019-03-23] MEDS: DOCUSATE NA 100 MG CAP PO SCH (09:12)
[2019-03-23] MEDS: ENOXAPARIN 30 MG/0.3 ML SQ SCH (09:12)
--- NOTE | 2019-03-23 10:52 | P.PN ---
Date of Service: 03/23/19 (POD#3) S: Patient is resting, given recent IV Dilaudid for c/o pain with movement of LLE plus dementia with agitation. Proximal Aquacel bandage changed as edges had been peeled up. Saw patient at 6pm last evening, much calmer than early afternoon visit. Daughter present both times O: VSS, AFEBRILE, PAIN CHART 0,4,4,0,0,7/10; HGB 8.1 Down from 8.4; INCISIONS bandages C,D & I. Dorsal pedis pulse is weak and thready, but present. Capillary filling is greater than two seconds. able to demonstrate active dorsiflexion of left great toe this afternoon. She still does not tolerate circumduction LLE. Physical therapy doing gentle motions to establish tolerance for transfers. A: Patient continues making slow progress after surgery with more pain than expected. P: IV doses of 0.5 mg Dilaudid ease patient's complaints, but Tramadol ineffective. DCed Tramadol and started Tylenol#3 po q4 prn. Weott is a problem with Risperdal. Will consult neurology.
--- NOTE | 2019-03-23 11:43 | P.PN ---
Subjective Date of Service: 03/23/19 Primary Care Provider: unknown Chief Complaint: Left hip pain Subjective: Demented, Other (Patient had AFib with RVR last night. Digoxin was given. Patient now on beta-jessica therapy. Still with poor ambulation.) Physical Examination - Vital Signs Temperature: 97.3 F Blood Pressure: 114/52 Pulse: 71 Respirations: 15 Pulse Ox (%): 96 - Physical Exam General: Alert, Demented HEENT: Atraumatic Neck: Supple Respiratory: Clear to auscultation bilaterally, Normal air movement Cardiovascular: Abnormal pulses (AFib rate controlled), Irregular heart rate/ rhythm (AFib rate controlled) Gastrointestinal: No tenderness, No masses, No rebound, No guarding Neurological: Dementia (Severe) - Studies Medications List Reviewed: Yes Assessment & Plan Discharge Plan: Other (retirement facility verses detention) Plan to discharge in: 48 Hours Physician Review Additional Text: Impression: Left femoral neck fracture, closed, nondisplaced, status post open reduction/ internal fixation postoperative day 3, status post mechanical fall New atrial fibrillation with RVR Alzheimer's dementia with delirium secondary to anesthesia Cervical spinal stenosis Normocytic normochromic anemia Plan: Left femoral neck fracture, closed, nondisplaced, status post open reduction/ internal fixation postoperative day 3, status post mechanical fall: Continue with pain med control medication. Patient on DVT prophylaxis. Patient has poor response with physical therapy due to her dementia. Will discuss case with family an orthopedics. Patient will likely require skilled placement facility verses detention depending on whether she is able to participate with physical therapy. Overall stable. New atrial fibrillation with RVR: Patient was given digoxin IV last night. Beta-jessica therapy initiated. Patient on anti coagulation. Consult cardiology for further recommendation. Alzheimer's dementia with delirium secondary to anesthesia: Patient with dementia. Will monitor closely. Cervical spinal stenosis: Overall stable. Normocytic normochromic anemia: Overall stable. Will monitor closely. Will check iron and B12 levels. Patient may require transfusion if hemoglobin below 7.0. Time Spent Managing Pts Care (In Minutes): 55
[2019-03-23 15:15] LABS: Hematocrit 24.9 % (36.0-45.0)
[2019-03-23 15:52] LABS: Ferritin 183.8 ng/mL (8-388)
[2019-03-23] MEDS ORDERED: RISPERIDONE 0.25 MG TABLET PO SCH (21:00)
[2019-03-23] MEDS: CODEINE 30MG/APAP 300MG TAB PO PRN (21:45)
[2019-03-23] MEDS: TRAZODONE 50 MG TABLET PO SCH (21:47)
[2019-03-24] MEDS: HYDROMORPHONE HCL 0.5 MG/0.5 ML INJ IV PRN ×2 (00:36→09:10)
[2019-03-24] MEDS: D5 0.45 NS 1,000 ML IV SCH ×3 (04:22→23:01)
[2019-03-24 04:37] LABS: Hematocrit 22.8 % (36.0-45.0)
[2019-03-24] MEDS: METOPROLOL TAR 25 MG TAB PO SCH ×2 (05:26→17:22)
[2019-03-24] MEDS: DOCUSATE NA 100 MG CAP PO SCH (09:11)
[2019-03-24] MEDS: ENOXAPARIN 30 MG/0.3 ML SQ SCH (09:11)
[2019-03-24] MEDS: METOPROLOL TARTRATE 5 MG/5 ML INJ IV SCH ×3 (09:13→21:12)
[2019-03-24 09:33] LABS: Hematocrit 26.2 % (36.0-45.0)
[2019-03-24 09:49] LABS: Magnesium 2.1 mg/dL (1.8-2.4)
--- NOTE | 2019-03-24 12:29 | P.PN ---
Subjective Date of Service: 03/24/19 Primary Care Provider: unknown Chief Complaint: Left hip pain Subjective: Demented, Other (Daughter at bedside. Daughter reports that patient has not done well with Depakote. This was apparently changed by psychiatry prior to admission. She was previously on Risperdal which was a better medication for her.) Physical Examination - Vital Signs Temperature: 98.6 F Blood Pressure: 148/91 Pulse: 94 Respirations: 20 Pulse Ox (%): 96 - Physical Exam General: Alert, Demented, Other (Patient appears more alert and interactive with daughter) HEENT: Atraumatic Neck: Supple Respiratory: Clear to auscultation bilaterally, Normal air movement Cardiovascular: Irregular heart rate/rhythm (Atrial fibrillation, rate controlled) Gastrointestinal: Normal bowel sounds, Soft and benign, Non-distended Neurological: Normal speech, Dementia - Studies Medications List Reviewed: Yes Assessment & Plan Discharge Plan: Other (nursing home facility) Plan to discharge in: 48 Hours Physician Review Additional Text: Impression: Left femoral neck fracture, closed, nondisplaced, status post open reduction/ internal fixation postoperative day 4, status post mechanical fall New atrial fibrillation with RVR Alzheimer's dementia with delirium secondary to anesthesia Cervical spinal stenosis Normocytic normochromic anemia Plan: Left femoral neck fracture, closed, nondisplaced, status post open reduction/ internal fixation postoperative day 4, status post mechanical fall: Continue to work with physical therapy. Daughter is present today to help with this. Continue to pursue skilled placement at discharge. Overall stable at this time. Encourage ambulation with daughter. Encourage oral intake. IV fluids adjusted. Continue monitor closely. Anticipate discharge to skilled facility in the next 2-3 days pending physical therapy improvement. New atrial fibrillation with RVR: Continue Beta-jessica therapy. Patient on DVT prophylaxis-Lovenox. Case discussed with cardiology. Patient not a good candidate for chronic anti coagulation therapy due to her dementia and risk for fall. No need for full-dose anti coagulation therapy at this time especially with her anemia. Alzheimer's dementia with delirium secondary to anesthesia: Patient seen by Neurology yesterday. CT head/EEG ordered. Will hold off on this and discuss with Neurology. Depakote has been discontinued after long discussion with daughter. Daughter reports Depakote had been initiated by psychiatry prior to admission. She had been doing well with Risperdal prior to Depakote. Since being on Depakote patient seems to be more agitated. Will restart Risperdal at this time. Depakote has been discontinued. Continue to monitor closely. Cervical spinal stenosis: Overall stable. Normocytic normochromic anemia with iron deficiency: Overall stable. Will start IV iron. Patient will require oral iron at discharge. Time Spent Managing Pts Care (In Minutes): 55
--- NOTE | 2019-03-24 12:35 | CON ---
History Of Present Illness: Ms. Hickman is 84. She is extremely demented, has a do not resuscitate status, and is several days post the hip nailing procedure for a fractured femoral neck. She went in to atrial fibrillation and that is the reason for cardiology consult. Her heart rate was initially f airly high. She received 1 dose of digoxin overnight. Her heart rate is 100 to 110 now. The patien paul is unable to give a history. The patient's daughter was unaware of her having atrial fibrillation before, not familiar with the diagnosis. Physical Examination: General: The patient is 5 feet 3 inches, 142 pounds. She is disoriented, not responsive to verbal s timuli, speaking, but not responding to her situation at all. She is reciting the months with the [place] during the exam. Lungs: Clear. Heart: Irregularly irregular. No significant murmur. Abdomen: Soft. Extremities: Trace edema. Distal pulses diminished. Impression: The patient will not be able to tolerate anticoagulation. Her hemoglobin is falling. S he will probably get a transfusion today and she is just not a candidate who would be likely to danny ate a full dose of Lovenox. I think we should attempt to control heart rate. We used IV Lopressor. She is refusing oral medications, spitting them out for the most part, so we use all IV medications as the rate control is only goal here. BYRON Voice ID: [id number] Report ID: [id number]
[2019-03-24] MEDS: CODEINE 30MG/APAP 300MG TAB PO PRN (14:22)
[2019-03-24] MEDS: RISPERIDONE 0.25 MG TABLET PO SCH (17:00)
[2019-03-24] MEDS: RISPERIDONE 1 MG TABLET PO SCH ×2 (17:15→21:00)
--- NOTE | 2019-03-24 19:30 | P.PN ---
Date of Service: 03/24/19 (POD#4) S: Patient is resting calmly, responds with gracious confusion this evening. O: VSS, AFEBRILE, PAIN CHART 0,0,8,0,0,0/10; HGB 8.7 when repeated after 7.7reported with early a.m. specimen; INCISIONS bandages C,D & I. Dorsal pedis pulse is weak, but present. Patient was in more supine relaxed position with less edema LLE. Was able to demonstrate active movement of left toes this evening by asking her to move right toes. She tolerated toggle motion left knee. Physical therapy doing gentle motions to establish tolerance for transfers. A: Patient continues at her own pace due to dementia and agitation. P: Goals to be adjusted to transfers only as safe and tolerated. Daughter receptive to limited ambulation because of fall risk and patient's tendency to bolt.
[2019-03-24] MEDS: ENSURE ENLIVE 237 ML CAN PO SCH (21:00)
[2019-03-24] MEDS: TRAZODONE 50 MG TABLET PO SCH (21:13)
--- NOTE | 2019-03-25 01:22 | CON ---
Reason For Consultation: Consultation called by Dr. Luu because postoperatively the patient has n ot been recovering as she is expected to. She had surgery for left hip fracture. History Of Present Illness: She was admitted on the 19 of March after a mechanical fall. She does have comorbid advanced dementia with psychosis and delirium and was in a senior living when the fall occ urred. She had surgery by Dr. Luu on the 22 of March and he completed a left hip femoral rubin, nail by proximal approach. Following her recovery from surgery, she was slow to use the left leg and did not appear to sigh as expected. He did indicate that she may have an issue during surgery, but that is not clear. She has actually had episodes when she is more interactive, especially her daught er and they say clear words, but the communication does not have clear meaning as she speaks. She di d have an EEG earlier today. The results are pending. She did not have a head CT scan as suggested. Past Medical History: As indicated in addition of dementia with psychosis. Surgical History: Bladder suspension. Allergies: LIDOCAINE AND HALDOL. Social History: She resides in a personal senior living. No alcohol, tobacco, or IV drug use. Family History: Noncontributory. Review of Systems: Unable to obtain a clear review of systems. Physical Examination: Vital Signs: Blood pressure 173/90, pulse 80, respiratory rate 18, temperature 98.6, oxygen saturati on 96%. Weight 140 pounds, height 5 feet 3 inches. General: Ms. Hickman is resting in bed, getting EEG done. She is very talkative, but not making sen tences, but little answer, although not in full sentences. HEENT: She is normocephalic, atraumatic. Sclerae anicteric. Neurologic: She is moving her left lower extremity better today than yesterday. Her left arm is als o moving equally well as the right side. She does seem to have some pain on passive movement of the left leg and is expected as she is just status post left hip intramedullary nailing. Otherwise, she has no focal cranial nerve deficits. Motor: Upper extremity appear symmetric. Sensation, responses are intact in the upper extremities bilaterally. Difficult to assess in lower extremity given more pain on the left side. Unable to fully assess coordination in lower extremity, but upper extremity c oordination appears intact. She did not allow for a lot of manipulation in the left lower extremity and that was not done. Laboratory Studies: Her hemoglobin is now 8.7, earlier today was 7.7 and hematocrit is now 26.2, [facility] te blood cell count 9.2. Sodium 142, potassium 4.0, chloride 109, carbon dioxide 26, BUN 22, creatin ine 1.1. She has low iron, total iron binding capacity, transferrin is low, transferrin saturation a lso low. B12 is normal at 684. Urinalysis from the shows 10-20 white blood cells, 2+ esterase, trace blood and 5-10 squamous cells. Nitrite was negative. Her electrocardiogram shows atrial fibr illation with rapid ventricular response, which she is treated with by her primary team and the [facility] ology service. A hip x-ray done postoperatively was not optimal. However, hardware was grossly unch anged from the immediate postoperative x-ray. Assessment: Ms. Hickman is an 84-year-old patient with a dementia and difficult to assess neurologic al examination following the surgery and the effect of moderate anemia. Possible postoperative anemi a. She does not have evidence of an infection with normal white blood cell count and is afebrile. A full neurologic examination could not be completed. She does appear however, to move the left lower extremity better than she did yesterday. However, if possible, head CT scan without contrast may be done to help assess the possibility of focal ischemic event that may be contributing factor to her d ecreased movement of the left lower extremity. She did have atrial fibrillation with a rapid ventric ular response and that is an increased risk for cardioembolic stroke. Plan: She should be on anticoagulation that is being determined by Cardiology. Currently, she is on Lovenox 30 mg subcutaneously daily, but may benefit from a higher dose of anticoagulation. However, given her high fall risk that she would be taken into consideration carefully as if she does hit her head, there may be a great chance of intracerebral hemorrhage and other complications. Continue agg ressive management of low hemoglobin, hematocrit. When able, she should have a head CT scan minimum without contrast and that may be repeated. Next, her EEG will be reviewed. MANNY/XANDER Voice ID: [id number] Report ID: [id number]
[2019-03-25] MEDS: METOPROLOL TARTRATE 5 MG/5 ML INJ IV SCH ×4 (02:09→21:03)
[2019-03-25] MEDS: METOPROLOL TAR 25 MG TAB PO SCH ×2 (06:00→17:17)
[2019-03-25 06:26] LABS: Absolute Lymphocytes (CBC) 1.6 K/uL (0.7-4.9); Hematocrit 25.4 % (36.0-45.0); Lymphocytes % 30.6 % (15.3-44.8); MPV 8.8 fL (7.6-11.3); RBC Red Blood Cell Count 2.71 M/uL (3.86-4.86)
[2019-03-25 06:35] LABS: Magnesium 2.2 mg/dL (1.8-2.4); Potassium 3.8 mmol/L (3.5-5.1)
[2019-03-25] MEDS: ENOXAPARIN 30 MG/0.3 ML SQ SCH (07:32)
[2019-03-25] MEDS: ENSURE ENLIVE 237 ML CAN PO SCH ×2 (07:33→21:02)
[2019-03-25] MEDS: DOCUSATE NA 100 MG CAP PO SCH (07:33)
[2019-03-25] MEDS: RISPERIDONE 0.25 MG TABLET PO SCH ×2 (07:33→18:40)
[2019-03-25] MEDS ORDERED: TRAMADOL HCL 50 MG TAB PO PRN (07:35)
[2019-03-25] MEDS: SOD FERRIC GLUC COMPLX/SUCROSE 125 MG in NA CHLORIDE 0.9% 100 ML IV SCH (08:31)
--- NOTE | 2019-03-25 11:02 | P.PN ---
Subjective Date of Service: 03/25/19 Primary Care Provider: unknown Chief Complaint: Left hip pain Subjective: Demented (Daughter at bedside.) Physical Examination - Vital Signs Temperature: 98.2 F Blood Pressure: 175/99 Pulse: 118 Respirations: 16 Pulse Ox (%): 97 - Physical Exam General: Alert, Demented (Somewhat more cooperative this morning.) HEENT: Atraumatic Neck: Supple Respiratory: Clear to auscultation bilaterally, Normal air movement Cardiovascular: Irregular heart rate/rhythm (Atrial fibrillation rate controlled ) Gastrointestinal: No tenderness, No masses, No rebound, No guarding Musculoskeletal: No erythema, No tenderness, No warmth Integumentary: No erythema, No warmth, No cyanosis Neurological: Normal speech, Normal strength at 5/5 x4 extr, Normal tone, Dementia - Studies Medications List Reviewed: Yes Assessment & Plan Discharge Plan: Other (penitentiary facility) Plan to discharge in: 48 Hours Physician Review Additional Text: Impression: Left femoral neck fracture, closed, nondisplaced, status post open reduction/ internal fixation postoperative day 5, status post mechanical fall New atrial fibrillation with RVR Alzheimer's dementia with delirium secondary to anesthesia Cervical spinal stenosis Normocytic normochromic anemia Acute on chronic renal failure stage 3 Plan: Left femoral neck fracture, closed, nondisplaced, status post open reduction/ internal fixation postoperative day 5, status post mechanical fall: Daughter at bedside. Dementia medication adjusted. Hopefully with this change in medication she will participate with physical therapy. Daughter is to be present for therapy. Continue to a pursue skilled placement over the next 48 hr. Will discuss with social organization professor. New atrial fibrillation with RVR: Continue Beta-jessica therapy. Patient on DVT prophylaxis-Lovenox only due to high risk of fall and bleeding. Case discussed with cardiology. Patient not a good candidate for chronic anti coagulation therapy due to her dementia and risk for fall. Alzheimer's dementia with delirium secondary to anesthesia: Depakote has been discontinued. Risperdal initiated, hopefully this will improve her overall dementia. Continue to work with physical therapy. Case discussed with Neurology. Once the patient is more stable neurologic leave then will obtain EEG and CT scan. Cervical spinal stenosis: Overall stable. Normocytic normochromic anemia with iron deficiency: Overall stable. Continue IV iron. Patient will require oral iron at discharge. Acute on chronic renal failure stage 3: Patient has received IV fluids with improvement. Will discontinue and encourage oral intake. Will continue to monitor closely. Time Spent Managing Pts Care (In Minutes): 55
[2019-03-25] MEDS ORDERED: FLEET ENEMA ADULT PR ONE (11:53)
[2019-03-25] MEDS: HYDROMORPHONE HCL 0.5 MG/0.5 ML INJ IV PRN (12:27)
--- NOTE | 2019-03-25 13:00 | RAD REPORT ---
EXAM DESCRIPTION: CT - Head Brain Wo Cont - 03/25/2019 12:47 pm CLINICAL HISTORY: Numbness/decreased extremity movement COMPARISON: March 19, 2019 TECHNIQUE: Computed axial tomography of the head was obtained. IV contrast was not requested. All CT scans are performed using dose optimization technique as appropriate and may include automated exposure control or mA/KV adjustment according to patient size. FINDINGS: An intracranial bleed is not seen . The ventricles are normal in caliber. No extra-axial fluid collection is noted. Mild to moderate low-density areas within periventricular, deep and subcortical white matter likely r epresent ischemic changes secondary to small vessel disease. Fluid within the sinuses/ mastoids is not seen. IMPRESSION: No acute intracranial abnormality is seen. If patient's symptoms persist MRI of the bra in would be recommended.
--- NOTE | 2019-03-25 20:28 | P.PN ---
Date of Service: 03/25/19 (POD#5) S: Patient reciting numbers with eyes closed tightly, keeps repeating [phone], [phone]... ignores directions and resists passive movements. O: VSS, AFEBRILE, PAIN CHART 0,0,0,0,5,5,5/10; HGB 8.6 stable; INCISIONS: bandages C,D & I. Dorsal pedis pulse is 2+. Patient was in supine relaxed position with rigid resistance to movements of lower extremities. Forceful efforts could not overcome resistance to left knee flexion. Was not able to elicit active movement of toes or ankle LLE. Forceful passive effort raised ankle to near neutral position She tolerated circumduction of left hip and abduction to 30 degrees without outcry or any signs of distress. Physical therapy somehow managed EOB sit with max assist x 20 min. patient taking 10% of all meals today. A: Patient continues to fight progress possibly due to paranoia, dementia, and agitation. Daughter describes that patient was sitting on edge of bed, allowing both knees and hips to flex with feet on floor, tolerated passive motion. Has vision of patient sitting in chair feeding herself as a goal. P: Tried to get realistic plan outlined, but daughter resisting discharge to senior living. She plans on being here in the morning.
[2019-03-25] MEDS: TRAZODONE 50 MG TABLET PO SCH (21:02)
[2019-03-25] MEDS: RISPERIDONE 1 MG TABLET PO SCH (21:03)
--- NOTE | 2019-03-25 21:56 | PN ---
Date of Progress Note: 03/24/2019 Subjective: Ms. Hickman is being seen by Dr. Adkins and me for atrial fibrillation. She is a do not resuscitate. She is refusing to take anything p.o. Heart rate was fairly well controlled initially , but today her heart rate is 115. Her blood pressure is 175/99. I will continue IV beta-jessica, i ncrease the dose on as needed basis. She is not a candidate for anticoagulation. Hopefully, she abeba l be able to take p.o. at which time we can put her on metoprolol probably 60 b.i.d. JUVENAL/XANDER Voice ID: [id number] Report ID: [id number]
[2019-03-26] MEDS: METOPROLOL TARTRATE 5 MG/5 ML INJ IV SCH ×5 (02:11→20:21)
[2019-03-26] MEDS: D5 0.45 NS 1,000 ML IV SCH (04:22)
[2019-03-26] MEDS: METOPROLOL TAR 25 MG TAB PO SCH ×2 (05:02→17:09)
[2019-03-26 06:14] LABS: Absolute Lymphocytes (CBC) 1.6 K/uL (0.7-4.9); Hematocrit 27.2 % (36.0-45.0); Lymphocytes % 28.1 % (15.3-44.8); MPV 8.4 fL (7.6-11.3); RBC Red Blood Cell Count 2.84 M/uL (3.86-4.86)
[2019-03-26 06:37] LABS: Magnesium 2.1 mg/dL (1.8-2.4); Potassium 3.7 mmol/L (3.5-5.1)
[2019-03-26] MEDS: RISPERIDONE 0.25 MG TABLET PO SCH (08:13)
[2019-03-26] MEDS: ENOXAPARIN 30 MG/0.3 ML SQ SCH (08:18)
[2019-03-26] MEDS: DOCUSATE NA 100 MG CAP PO SCH (08:18)
[2019-03-26] MEDS: ENSURE ENLIVE 237 ML CAN PO SCH ×3 (08:19→21:00)
--- NOTE | 2019-03-26 08:58 | P.PN ---
Subjective Date of Service: 03/26/19 Primary Care Provider: unknown Chief Complaint: Left hip pain Subjective: Demented, Other (Patient still requires assist for mobility. Patient not able to walk. Agitation appears less today. Daughter at bedside.) Physical Examination - Vital Signs Temperature: 97.7 F Blood Pressure: 155/81 Pulse: 111 Respirations: 16 Pulse Ox (%): 98 - Physical Exam General: Alert, Demented, Other (Patient able to follow questions. Patient able to follow commands.) HEENT: Atraumatic Neck: Supple Respiratory: Clear to auscultation bilaterally, Normal air movement Cardiovascular: Irregular heart rate/rhythm (Atrial fibrillation rate slightly elevated) Gastrointestinal: Normal bowel sounds, Soft and benign, Non-distended Musculoskeletal: No tenderness, No warmth Neurological: Normal speech, Normal strength at 5/5 x4 extr, Normal tone, Dementia - Studies Medications List Reviewed: Yes Assessment & Plan Discharge Plan: Other (assisted facility versus senior care) Plan to discharge in: 24 Hours Physician Review Additional Text: Impression: Left femoral neck fracture, closed, nondisplaced, status post open reduction/ internal fixation postoperative day 6, status post mechanical fall New atrial fibrillation with RVR Alzheimer's dementia with delirium secondary to anesthesia Cervical spinal stenosis Normocytic normochromic anemia Acute on chronic renal failure stage 3 Plan: Left femoral neck fracture, closed, nondisplaced, status post open reduction/ internal fixation postoperative day 6, status post mechanical fall: Daughter at bedside. CT scan head unremarkable. Patient continues on dementia medication-risperidone. Patient appears less confused this morning. Patient still requires full assist with physical therapy. Will check to see what physical therapy recommends at this time. Daughter expectation for the patient is for her to go to skilled facility. Her expectation is that she understands that the patient likely will not be able to walk. She also expects that she would be able to at least get into wheelchair and sit in a chair. Daughter understands that patient still at risk for falls. Await to see what physical therapy recommends at this time. If patient continues with poor progress patient will likely require senior care placement instead of skilled placement. Await recommendations from physical therapy. Daughter also does not want the patient to continue with DVT prophylaxis at the senior care. Risks and benefits addressed in detail. Daughter understands. Will discuss with licensed social worker about plan of care. Await to see if skilled placement is recommended. Will continue to monitor progress. New atrial fibrillation with RVR: Continue to adjust Beta-jessica therapy. Patient on DVT prophylaxis-Lovenox only due to high risk of fall and bleeding. Case discussed with cardiology. Patient not a good candidate for chronic anti coagulation therapy due to her dementia and risk for fall at the skilled facility or senior care. Daughter does not want her to get Lovenox injections for DVT prophylaxis at the senior care or skilled facility. Alzheimer's dementia with delirium secondary to anesthesia: Depakote has been discontinued. Risperdal initiated. Patient seems to be responding well to medication. Less confusion noted. CT head unremarkable. Case discussed at length with Neurology. Patient will eventually require memory unit facility placement. Still wait to see if she would require skilled placement prior to this. Cervical spinal stenosis: Overall stable. Normocytic normochromic anemia with iron deficiency: Overall stable. Continue IV iron. Patient will require oral iron at discharge. Acute on chronic renal failure stage 3: Encourage oral intake. Overall stable.. Time Spent Managing Pts Care (In Minutes): 55
[2019-03-26] MEDS ORDERED: KCL 20 MEQ/100 mL IVPB 20 MEQ/100 ML BAG IV SCH (09:00)
[2019-03-26] MEDS: SOD FERRIC GLUC COMPLX/SUCROSE 125 MG in NA CHLORIDE 0.9% 100 ML IV SCH (10:08)
[2019-03-26] MEDS: TRAZODONE 50 MG TABLET PO SCH ×2 (20:21→21:00)
[2019-03-26] MEDS: RISPERIDONE 1 MG TABLET PO SCH ×2 (20:21→21:00)
--- NOTE | 2019-03-26 20:31 | P.PN ---
Date of Service: 03/26/19 (POD#6) S: Patient calm this evening with confused conversation. O: VSS, AFEBRILE, PAIN CHART 2,2,2,2,0,0,0/10; HGB up from 8.6 to 9.0 stable; INCISIONS: bandages C,D & I. Dorsal pedis pulse is 2+. Patient is in supine position still with resistance to passive movements of lower extremities. Forceful efforts could not overcome resistance to left knee flexion. Was able to direct active movement of right toes and left toes moved at same time. Passive effort raised L ankle to within 20 degrees of neutral position, She again tolerated mild circumduction of left hip and abduction to 30 degrees without any signs of distress. Physical therapy indicates patient needs total assist care; not safe to sit alone. A: Patient continues with no capability of cooperation ,but seems to have less pain day by day. She is not, and won't be capable or safe for ambulation. Goal should be transfers only when safe and tolerated. Aggressive PROM daily recommended for LLE and RLE. P: Patient soon to be discharged to post hospital care. Apply new Aquacel bandages after alcohol wipes. Remove laura 04/01/19 and rebandage x 3d. PT for Transfers only WBAT LLE. PROM & AAROM both LEs daily. Call office for appt. to see Dr. Luu 10 days post discharge with L hip films done prior to visit.
[2019-03-27] MEDS: D5 0.45 NS 1,000 ML IV SCH ×2 (01:58→21:00)
[2019-03-27] MEDS: METOPROLOL TARTRATE 5 MG/5 ML INJ IV SCH ×4 (01:59→20:00)
[2019-03-27] MEDS: METOPROLOL TAR 25 MG TAB PO SCH ×2 (05:15→18:00)
[2019-03-27 06:31] LABS: Lymphocytes % 27.6 % (15.3-44.8); MPV 8.5 fL (7.6-11.3); RBC Red Blood Cell Count 2.83 M/uL (3.86-4.86)
[2019-03-27 07:12] LABS: Magnesium 2.3 mg/dL (1.8-2.4); Potassium 3.8 mmol/L (3.5-5.1)
[2019-03-27] MEDS: SOD FERRIC GLUC COMPLX/SUCROSE 125 MG in NA CHLORIDE 0.9% 100 ML IV SCH (08:35)
[2019-03-27] MEDS: ENOXAPARIN 30 MG/0.3 ML SQ SCH (08:35)
[2019-03-27] MEDS: DOCUSATE NA 100 MG CAP PO SCH (09:00)
[2019-03-27] MEDS: RISPERIDONE 0.25 MG TABLET PO SCH (09:00)
[2019-03-27] MEDS: ENSURE ENLIVE 237 ML CAN PO SCH ×3 (09:00→20:27)
[2019-03-27] MEDS ORDERED: KCL 20 MEQ/100 mL IVPB 20 MEQ/100 ML BAG IV SCH (09:00)
--- NOTE | 2019-03-27 10:04 | P.PN ---
Subjective Date of Service: 03/27/19 Primary Care Provider: unknown Chief Complaint: Left hip pain Subjective: Other (Patient worked with physical therapy yesterday. Patient was refusing medications and diet by nurses. She does a lot better when daughter is around.) Physical Examination - Vital Signs Temperature: 96.8 F Blood Pressure: 132/84 Pulse: 94 Respirations: 20 Pulse Ox (%): 91 - Physical Exam General: Alert, Demented (Severe dementia), Other (Patient alert and cooperative ) HEENT: Atraumatic Neck: Supple Respiratory: Clear to auscultation bilaterally, Normal air movement Cardiovascular: Irregular heart rate/rhythm (Atrial fibrillation, rate controlled) Gastrointestinal: Normal bowel sounds, Soft and benign, Non-distended, No masses , No rebound, No guarding Neurological: Dementia - Studies Medications List Reviewed: Yes Assessment & Plan Discharge Plan: Other (assisted facility) Plan to discharge in: 24 Hours Physician Review Additional Text: Impression: Left femoral neck fracture, closed, nondisplaced, status post open reduction/ internal fixation postoperative day 7, status post mechanical fall New atrial fibrillation with RVR Alzheimer's dementia with delirium secondary to anesthesia Cervical spinal stenosis Normocytic normochromic anemia Acute on chronic renal failure stage 3 Plan: Left femoral neck fracture, closed, nondisplaced, status post open reduction/ internal fixation postoperative day 7, status post mechanical fall: Patient slowly improving with physical therapy. Patient has done well when daughter is present. Continue with medication for dementia. Encourage oral intake. Encourage patient to take medications. [facility] Anticipate discharge tomorrow when daughter will be present to help with her transfer and overall care. New atrial fibrillation with RVR: Rate better controlled. Encourage patient to take medication. Patient on DVT prophylaxis-Lovenox only due to high risk of fall and bleeding. Case discussed with cardiology. Patient not a good candidate for chronic anti coagulation therapy due to her dementia and risk for fall at the skilled facility or prison. Daughter does not want her to get Lovenox injections for DVT prophylaxis at the prison or skilled facility. Alzheimer's dementia with delirium secondary to anesthesia: Patient seems to be responding to Risperdal. Patient appears to be at her baseline level. Patient with moderate to severe dementia. Less confusion noted but refusing her medication/diet at times. She does better when daughter is present. CT head unremarkable. Case discussed at length with Neurology. Patient will eventually require memory unit facility placement. Case and plan of care discussed with the daughter. Cervical spinal stenosis: Overall stable. Normocytic normochromic anemia with iron deficiency: Overall stable. Continue IV iron. Patient will require oral iron at discharge. Acute on chronic renal failure stage 3: Encourage oral intake. Overall stable.. Time Spent Managing Pts Care (In Minutes): 55
[2019-03-27] MEDS: RISPERIDONE 1 MG TABLET PO SCH (20:21)
[2019-03-27] MEDS: TRAZODONE 50 MG TABLET PO SCH (20:21)
[2019-03-27] MEDS ORDERED: METOPROLOL TARTRATE 5 MG/5 ML INJ IV SCH (22:39)
[2019-03-28] MEDS ORDERED: METOPROLOL TARTRATE 5 MG/5 ML INJ IV PRN (01:24)
[2019-03-28] MEDS: D5 0.45 NS 1,000 ML IV SCH (05:36)
[2019-03-28] MEDS ORDERED: METOPROLOL TAR 25 MG TAB PO SCH (06:00)
[2019-03-28 07:26] LABS: Potassium 3.7 mmol/L (3.5-5.1)
[2019-03-28] MEDS: SOD FERRIC GLUC COMPLX/SUCROSE 125 MG in NA CHLORIDE 0.9% 100 ML IV SCH (08:50)
[2019-03-28] MEDS: DOCUSATE NA 100 MG CAP PO SCH (08:51)
[2019-03-28] MEDS: ENOXAPARIN 30 MG/0.3 ML SQ SCH (08:51)
[2019-03-28] MEDS: RISPERIDONE 0.25 MG TABLET PO SCH (08:52)
[2019-03-28] MEDS: ENSURE ENLIVE 237 ML CAN PO SCH (08:52)
[2019-03-28] MEDS ORDERED: POTASSIUM CL SA 10 MEQ TAB PO ONE (09:00)
--- NOTE | 2019-03-28 09:42 | P.DS ---
Admission Date: 03/19/19 Discharge Date: 03/28/19 Primary Care Provider: snf Disposition: TRANSFER TO SNF - MEDICAL Discharge Condition: GOOD Reason for Admission: Left hip pain Consultations: Neurology-Dr. Hagan Orthopedics-Dr. Luu Cardiology-Dr. Adkins/Tyler Procedures: Xray: COMPARISON: Pelvis same date, left hip February 09 FINDINGS: AP and cross-table lateral views were obtained. Fracture is present at the base of the left femoral neck probably extending into the intertrochanteric region. No pathologic component seen. Mild impaction along the medial margin is suspected. No dislocation of the femoral head. No significant soft tissue finding identified. IMPRESSION: Proximal left femur fracture as detailed CT head: COMPARISON: March 19, 2019 TECHNIQUE: Computed axial tomography of the head was obtained. IV contrast was not requested. All CT scans are performed using dose optimization technique as appropriate and may include automated exposure control or mA/KV adjustment according to patient size. FINDINGS: An intracranial bleed is not seen . The ventricles are normal in caliber. No extra-axial fluid collection is noted. Mild to moderate low-density areas within periventricular, deep and subcortical white matter likely represent ischemic changes secondary to small vessel disease. Fluid within the sinuses/ mastoids is not seen. IMPRESSION: No acute intracranial abnormality is seen ECHO: Ejection fraction 65% LEFT VENTRICULAR WALL MOTION: NORMAL DOPPLER/COLOR FLOW: MILD AORTIC, MITRAL AND TRICUSPID REGURGITATION. NORMAL RIGHT VENTRICULAR SYSTOLIC PRESSURE. COMMENTS: NORMAL 2-DIMESIONAL ECHOCARDIOGRAM. MILD AORTIC, MITRAL AND TRICUSPID REGURGITATION. SINUS RHYTHM. Surgery: Surgeon: Abisai Luu MD Postoperative Diagnosis: Left hip basicervical/intertrochanteric femur fracture. Postoperative Diagnosis: Left hip basicervical/intertrochanteric femur fracture. Procedure: Insertion of left intramedullary nail for intertrochanteric hip fracture. Medical Problem List: Left femoral neck fracture, closed, nondisplaced, status post open reduction/ internal fixation postoperative day 8, status post mechanical fall with history of falls New atrial fibrillation with RVR now rate controlled Alzheimer's dementia with delirium secondary to anesthesia Cervical spinal stenosis Normocytic normochromic anemia Acute on chronic renal failure stage 3 Brief History of Present Illness: 84-year-old female with history of dementia presented to the ER with mechanical fall. Patient recently hospitalized in February for a fall where she suffered a pubic rami fracture which was non operative. Patient was placed on hospice at that time. She was taken off hospice while at the longterm due to her stability. At this time she fell again. Found to have a left hip fracture. Patient also had agitation upon admission related to her dementia. Patient was admitted for further evaluation and treatment. Hospital Course: Patient presented with left basicervical/intertrochanteric femur fracture after mechanical fall. Patient was seen and evaluated by orthopedics. Surgical prevention was recommended. Patient eventually had open reduction/internal fixation of the hip. Patient seemed to tolerate the procedure well. She did have some delirium post surgery. This required neurology evaluation. CT head unremarkable. Medications were adjusted during her stay to help with the delirium. Patient previously on risperdal but this was changed recently by psychiatry at the longterm to Depakote. Daughter noted worsening agitation with Depakote. During this hospital stay, Depakote was discontinued. Risperdal was reinitiated. Patient has done well with risperidal. She will continue with Risperdal 0.5 mg every a.m. and 1 mg at night. Patient may continue with physical therapy at the longterm. Patient not able and expected to walk but is able to sit up and work with her upper extremities. Patient is a high risk for future falls. Therefore will recommend fall precautions to be enforced at the longterm. Patient may require bed alarm. Daughter does not want DVT prophylaxis-Lovenox at discharge. This was discussed in detail with the daughter. Risk and benefit address in detail especially after hip surgery. Patient can be transitioned from skilled placement back to longterm. Patient will likely require hospice in the future if her dementia continues decline. A limited supply of tramadol 50 mg 1 pill 3 times a day as needed for pain will be provided. Orthopedic discharge instructions include: Apply new Aquacel bandages after alcohol wipes prior to discharge. Remove laura 04/01/19 and rebandage x 3d. PT for Transfers only WBAT LLE. PROM & AAROM both LEs daily. Call office for appt. to see Dr. Luu 10 days post discharge with L hip films done prior to visit. During her hospital stay, patient also had new onset atrial fibrillation with RVR. Patient was placed on rate control medication. Rate now controlled. Patient was also on Lovenox but with DVT prophylaxis due to risk of bleeding. At discharge cardiology recommends no further chronic anti coagulation therapy due to her dementia and risk for fall and bleeding. As mentioned above the daughter does not want the patient to get any Lovenox injections post operatively for DVT prophylaxis. Patient with underlying anemia with iron deficiency. Patient received IV iron during her stay. Hemoglobin stable at this time. At discharge, Patient may continue with iron 325 mg 1 pill twice daily. Recommend to monitor and recheck CBC in 2-4 weeks to monitor her progress. Patient with acute on chronic renal disease, stage III. This has remained stable. Recommend no use of nonsteroidal anti-inflammatories. Future medications will need to be renally dosed. Recommend recheck lab-BMP in 2-4 weeks to monitor her progress. Likely no need for nephrology evaluation due to her Alzheimer's dementia. As mentioned above patient with underlying Alzheimer's dementia. At discharge she is back to baseline level. Patient may continue with Risperdal 0.5 mg in the morning and 1 mg at night. Patient will also continue with trazodone 50 mg at bedtime. Folic acid 1 mg daily added. This can be further monitored and adjusted at the longterm. Vital Signs/Physical Exam: Temp Pulse Resp BP Pulse Ox 97.8 F 94 H 18 157/83 H 94 03/28/19 03:55 03/28/19 05:36 03/28/19 03:55 03/28/19 05:36 03/28/19 03:55 General: Alert, Cooperative, Demented (Moderate to severe dementia) HEENT: Atraumatic Neck: Supple Respiratory: Clear to auscultation bilaterally, Normal air movement Cardiovascular: Irregular heart rate/rhythm (Atrial fibrillation, rate controlled) Gastrointestinal: Normal bowel sounds, No tenderness, No masses, No rebound, No guarding Musculoskeletal: No erythema, No tenderness, No warmth Integumentary: No erythema, No warmth, No cyanosis Neurological: Dementia Laboratory Data at Discharge: WBC 7.1 K/uL (4.3-10.9) D 03/27/19 06:02 Hgb 8.9 g/dL (12.0-15.0) L 03/27/19 06:02 Hct 27.0 % (36.0-45.0) L 03/27/19 06:02 Plt Count 229 K/uL (152-406) 03/27/19 06:02 PT 11.5 SECONDS (9.5-12.5) 03/19/19 09:32 INR 0.97 03/19/19 09:32 Sodium 143 mmol/L (136-145) 03/28/19 06:49 Potassium 3.7 mmol/L (3.5-5.1) 03/28/19 06:49 BUN 20 mg/dL (7-18) H 03/28/19 06:49 Creatinine 0.98 mg/dL (0.55-1.3) 03/28/19 06:49 Glucose 103 mg/dL (74-106) 03/28/19 06:49 Magnesium 2.3 mg/dL (1.8-2.4) 03/27/19 06:02 Total Bilirubin 0.5 mg/dL (0.2-1.0) 03/21/19 05:45 AST 33 U/L (15-37) 03/21/19 05:45 ALT 18 U/L (12-78) 03/21/19 05:45 Alkaline Phosphatase 58 U/L (45-117) 03/21/19 05:45 Home Medications: Acetaminophen 500 mg PO Q6HP PRN 03/19/19 Acetaminophen with Codeine [Tylenol with Codeine #3 Tablet] 1 tab PO Q6HP PRN Docusate Sodium 2 cap PO DAILY 03/19/19 Trazodone [Desyrel*] 50 mg PO BEDTIME 03/19/19 Ensure Enlive 237 ml PO BID #60 can 03/28/19 Ferrous Sulfate [Iron] 325 mg PO BID #60 tablet 03/28/19 Folic Acid 1 mg PO DAILY #30 tablet 03/28/19 Metoprolol Tartrate [Lopressor*] 25 mg PO BID 6AM 6PM #60 tab 03/28/19 risperiDONE [Risperdal 0.25 MG TAB*] 0.5 mg PO DAILY #60 tab 03/28/19 risperiDONE [Risperdal 1 mg tab*] 1 mg PO BEDTIME #30 tab 03/28/19 traMADol HCL [Ultram*] 50 mg PO TID PRN #15 tab 03/28/19 New Medications: Ensure Enlive 237 ml PO BID #60 can Ferrous Sulfate [Iron] 325 mg PO BID #60 tablet Folic Acid 1 mg PO DAILY #30 tablet Metoprolol Tartrate [Lopressor*] 25 mg PO BID 6AM 6PM #60 tab risperiDONE [Risperdal 0.25 MG TAB*] 0.5 mg PO DAILY #60 tab risperiDONE [Risperdal 1 mg tab*] 1 mg PO BEDTIME #30 tab traMADol HCL [Ultram*] 50 mg PO TID PRN #15 tab PRN Reason: Pain Patient Discharge Instructions: 1. Discharge to skilled facility. 2. Patient presented with left basicervical/intertrochanteric femur fracture after mechanical fall. Patient was seen and evaluated by orthopedics. Surgical prevention was recommended. Patient eventually had open reduction/internal fixation of the hip. Patient seemed to tolerate the procedure well. She did have some delirium post surgery. This required neurology evaluation. CT head unremarkable. Medications were adjusted during her stay to help with the delirium. Patient previously on risperdal but this was changed recently by psychiatry at the longterm to Depakote. Daughter noted worsening agitation with Depakote. During this hospital stay, Depakote was discontinued. Risperdal was reinitiated. Patient has done well with risperidal. She will continue with Risperdal 0.5 mg every a.m. and 1 mg at night. Patient may continue with physical therapy at the longterm. Patient not able and expected to walk but is able to sit up and work with her upper extremities. Patient is a high risk for future falls. Therefore will recommend fall precautions to be enforced at the longterm. Patient may require bed alarm. Daughter does not want DVT prophylaxis-Lovenox at discharge. This was discussed in detail with the daughter. Risk and benefit address in detail especially after hip surgery. Patient can be transitioned from skilled placement back to longterm. Patient will likely require hospice in the future if her dementia continues decline. A limited supply of tramadol 50 mg 1 pill 3 times a day as needed for pain will be provided. Orthopedic discharge instructions include: Apply new Aquacel bandages after alcohol wipes prior to discharge. Remove laura 04/01/19 and rebandage x 3d. PT for Transfers only WBAT LLE. PROM & AAROM both LEs daily. Call office for appt. to see Dr. Luu 10 days post discharge with L hip films done prior to visit. 3. During her hospital stay, patient also had new onset atrial fibrillation with RVR. Patient was placed on rate control medication. Rate now controlled. Patient was also on Lovenox but with DVT prophylaxis due to risk of bleeding. At discharge cardiology recommends no further chronic anti coagulation therapy due to her dementia and risk for fall and bleeding. As mentioned above the daughter does not want the patient to get any Lovenox injections post operatively for DVT prophylaxis. 4. Patient with underlying anemia with iron deficiency. Patient received IV iron during her stay. Hemoglobin stable at this time. At discharge, Patient may continue with iron 325 mg 1 pill twice daily. Recommend to monitor and recheck CBC in 2-4 weeks to monitor her progress. 5. Patient with acute on chronic renal disease, stage III. This has remained stable. Recommend no use of nonsteroidal anti-inflammatories. Future medications will need to be renally dosed. Recommend recheck lab-BMP in 2-4 weeks to monitor her progress. Likely no need for nephrology evaluation due to her Alzheimer's dementia. 6. As mentioned above patient with underlying Alzheimer's dementia. At discharge she is back to baseline level. Patient may continue with Risperdal 0.5 mg in the morning and 1 mg at night. Patient will also continue with trazodone 50 mg at bedtime. Folic acid 1 mg daily added. This can be further monitored and adjusted at the longterm. Diet: AHA Activity: Fall precautions Time spent managing pt's care (in minutes): 55
--- NOTE | 2019-03-29 13:32 | EEG ---
CHART: [id number] TEST ID#: [id number] DATE OF STUDY: 03/24/2019 THE EEG WAS RECORDED PORTABLE IN THE PATIENTS ROOM ON A 17 CHANNEL MACHINE. ELECTRODES WERE APPLIED IN THE USUAL MANNER USING THE [employer]NATIONAL 10-20 SYSTEM. THE WAKING BACKGROUND RHYTHM IN THIS RECORD CONSISTS OF POORLY DEVELOPED AND WELL ORGANIZED WAVES OF 5-6 HZ., IN A WIDE DISTRIBUTION WHICH ATTENUATE POORLY WITH EYE OPENING. MODERATE VOLTAGE 1.5-3 HZ ACTIVITY IS EXPRESSED IN THE FRONTAL REGIONS. THERE ARE NO FOCAL OR LATERALIZING FEATURES. NO EPILEPTIFORM ACTIVITY APPEARS. SLEEP DID NOT OCCUR. HYPERVENTILATION WAS NOT PERFORMED. PHOTIC STIMULATION PRODUCED NO DRIVING BILATERALLY. IMPRESSION: THIS IS A MODERATELY ABNORMAL EEG DUE TO A MODERATELY SLOW BACKGROUND (DELTA AND THETA). THIS FINDING INDICATES THE PRESENCE OF A MODERATE BUT NON-SPECIFIC DISTURBANCE IN CEREBRAL ACTIVITY.
== END 2019-03-28 13:20 | DRG 481 ==
LOC: ER 08:10 → ERHOLD 10:51 → 4TH 14:12
PROVIDERS: ADMIT Family Medicine; ATTEND Family Medicine
PROC: 0QS706Z Reposition Left Upper Femur with Intramedullary Internal Fixation Device, Open Approach (ICD-10-PCS; principal; 2019-03-20 08:00)
DX: S72.042A Displaced fracture of base of neck of left femur, initial encounter for closed fracture (principal); F05 Delirium due to known physiological condition; N17.9 Acute kidney failure, unspecified; F02.81 Dementia in other diseases classified elsewhere, unspecified severity, with behavioral disturbance; W01.0XXA Fall on same level from slipping, tripping and stumbling without subsequent striking against object, initial encounter; Z91.81 History of falling; Y92.199 Unspecified place in other specified residential institution as the place of occurrence of the external cause; I48.91 Unspecified atrial fibrillation; M48.02 Spinal stenosis, cervical region; G30.0 Alzheimer's disease with early onset; N18.3 Chronic kidney disease, stage 3 (moderate); D50.9 Iron deficiency anemia, unspecified; Z66 Do not resuscitate; Z85.43 Personal history of malignant neoplasm of ovary
CPT/HCPCS: 36415; 70450; 71045; 72125; 72170; 73530; 80048; 80053; 81001; 82607; 82728; 82962; 83540; 83735; 84466; 84484; 85014; 85018; 85025; 85610; 87086; 87088; 93005; 93306; 94760; 95816; 96374; 96375; 97110; 97112; 97162; 97530; 99285; J0330; J0690; J1160; J1170; J1650; J2270; J2405; J2704; J2710; J2916; J3010; J7030

== ENCOUNTER 2019-08-12 17:03 | Observation (INO) | payer OTHER ==
--- OUTSIDE RECORDS SUMMARY | 2019-08-12 17:05 | XMS REPORT ---
:1935 [facility] Address [address] [place] [address] Dr. Lujan. [address] [place] [address] Care Team Providers Name Role Phone Unavailable [...] KINASE (CK) (test code=CK) 97 Units/L 26-192 [id number] 22:35:00 Test Item Value Reference Range Comments TROPONIN-I (test <0.02 NG/ML 0.00-0.06 REFERENCE RANGE TROPONIN I code=TROPI) HEALTHY INDIVIDUALS: <0.06 ng/mL R/O ISCHEMIA: 0.07 - 0.60 ng/mL CUT-OFF RANGE FOR AMI: 0.60 - 1.5 ng/mL [id number] 22:35:00 Test Item Value Reference Range Comments ACETAMINOPHEN (test code=ACET) <2.0 mcg/ml 10.0-30.0 Result is in Microgram per milliliter. [id number] 22:35:00 Test Item Value Reference Range Comments SALICYLATE (test code=MIGEL) 0.8 mg/dl 2.8-20.0 [id number] 22:35:00 Test Item Value Reference Range Comments ALCOHOL (test code=ALC) 0.00 gm/dL 0.00-0.00 ETHYL ALCOHOL VALUES - INTERPRETATION: 0.050 GM/DL - NOT INTOXICATED 0.100 GM/DL - INTOXICATED 0.350-0.450 GM/DL - SEVERELY INTOXICATED 0.550 GM/DL- FATAL INTOXICATION DRUGS OF ABUSE SCREEN [id number] 22:33:00 Test Item Value Reference Range Comments [...] cut-off code=METHAURN) concentration: 300 ng/mL COMPREHENSIVE METABOLIC [id number] 22:25:00 Test Item Value Reference Range Comments [...] CREATINE KINASE (CK) (test code=CK) Units/L 26-192 [id number] 22:25:00 Test Item Value Reference Range Comments TROPONIN-I (test code=TROPI) NG/ML 0.00-0.06 [id number] 22:25:00 Test Item Value Reference Range Comments ACETAMINOPHEN (test code=ACET) mcg/ml 10.0-30.0 [id number] 22:25:00 Test Item Value Reference Range Comments SALICYLATE (test code=MIGEL) mg/dl 2.8-20.0 [id number] 22:25:00 Test Item Value Reference Range Comments ALCOHOL (test code=ALC) gm/dL 0.00-0.00 PROTHROMBIN [id number] 22:24:00 Test Item Value Reference Range Comments [...] ANTIPHOSPHOLIPID ANTIBODIES 2.5 - 3.5 THROMBOPLASTIN TIME [id number] 22:24:00 Test Item Value Reference Range Comments THROMBOPLASTIN TIME 26.50 SECONDS 25.86-36.07 [facility] PARTIAL (test code=PTT) Range - APTT of 55.8-85.4 secondscorrelates with plasma heparin concentration of 0.2-0.4 u/mL New range effective - 10/06/2016 URINALYSIS [id number] 22:23:00 Test Item Value Reference Range Comments [...] (test code=HYALU) 0-2 /LPF <1/LPF CBC W/AUTO [id number] 22:19:00 Test Item Value Reference Range Comments [...] # (test code=BA#) 0.1 K/mm3 0.0-0.2 URINALYSIS [id number] 22:18:00 Test Item Value Reference Range Comments [...] code=BACU) NONE - XR FOREARM 2 VIEWS [id number] 21:55:00 FAX: Silvia AdameNortheast HarborJr sawant [place]: St: REG FAX: Deborah Marcano [phone] Name: KADI DEMARCO [facility] : 1935 Age/S: 83/F [address] [facility] Unit #: [id number] Loc: [address] Phys: [place] [address] Acct: [id number] Dis Date: Status: REG ER PHONE #: [phone] Exam Date: 12/23/20182141 FAX #: [phone] Reason: FALL EXAMS: CPT CODE: [id number] XR FOREARM 2 [place] [address] CLINICAL HISTORY: Fall with hip pain., Bilateral [...] Marcano MD Technologist: KRISTINA ALLAN; YVONNE LOWERY [facility] Date/Time/By: 12/23/2018 (2154) : By: [facility] PAGE 1 Signed Report FAX: Jr Cunningham II [phone] [place] : St: REG FAX: Nuha Marcano MD [phone] Name: KADI DEMARCO [facility] : 1935 Age /S: 83/F [address] [facility] Unit #: [id number] Loc: [address] [place] [address] [place]: [place] [address] Acct: [id number] Dis Date: Status: REG ER PHONE #: [phone] Exam Date : 12/23/20182141 FAX #: [phone] Reason: FALL EXAMS: CPT CODE: [id number] XR FOREARM [address] [place] [address] <Continued> Orig Print D/T: S: 12/23/2018 (3) PAGE 2 Signed Report- XR HIP W/PEL UNI 2+V [id number] 21:55:00 FAX: Jr Cunningham II [place]: St: REG FAX: Deborah Marcano [phone] - Name: KADI DEMARCO [facility] : 1935 Age/S: 83/F [address] [facility] Unit #: [id number] Loc: [address] [place]: [place] [address] Acct: [id number] Dis Date: Status: REG ER PHONE #: [phone] Exam Date: 12/23/20182141 FAX #: [phone] Reason: FALL EXAMS: CPT CODE: [id number] XR HIP W/[place] UNI 2+[place] [address] CLINICAL HISTORY: Fall with hip pain., Bilateral [...] LOWERY Trnscrd Date/Time/By: 12/23/2018 (2154) : By: [facility] PAGE 1 Signed Report FAX: Silvia ShawJr CHARLES [phone] [place] : St: REG FAX: Nuha Marcano MD [phone] Name: KADI DEMARCO [facility] : 1935 Age /S: 83/F [address] [email or web address] Unit #: [id number] Loc: [address] Phys: [place] [address] Acct: [id number] Dis Date: Status: REG ER PHONE #: [phone] Exam Date : 12/23/20182141 FAX #: [phone] Reason: FALL EXAMS: CPT CODE: [id number] XR HIP W/PEL UNI 2+[place] [address] <Continued> Orig Print D/T: S: 12/23/2018 (2151) PAGE 2 Signed Report- CT HEAD/BRAIN W/O [id number] 21:45:00 FAX: Silvia ShawJr CHARLES [place]: St: REG FAX: Nuha Marcano MD [phone] - Name: KADI DEMARCO [facility] : 1935 Age/S: 83/F [address] [email or web address] Unit: [id number] Loc: [address] [place]: [place] [address] Acct: [id number] Dis Date: Status: REG ER PHONE #: [phone] Exam Date: 12/23/20182138 FAX #: [phone] Reason: head injury EXAMS: CPT CODE: [id number] CT HEAD/BRAIN W/O CONT 34287 CLINICAL HISTORY: Head injury, combative. CT brain, [...] Report (CONTINUED) FAX : Jr Cunningham II [phone] [place]: St: REG FAX: Nuha Marcano MD [phone] Name: KADI DEMARCO [facility] : 1935 Age/S: 83/F [address] [facility] Unit: [id number] Loc: [address] [place]: [place] [address] Acct: [id number] Dis Date: Status: REG ER PHONE #: [phone] Exam Date: 12/23/20182138 FAX #: [phone] Reason: head injury EXAMS: CPT CODE: [id number] CT HEAD/BRAIN W/O CONT 87435 < Continued> The vertebral bodies are free [...] PAGE 2 Signed Report- CT C-SPINE W/O [id number] 21:45:00 FAX : Jr Cunningham II [phone] [place]: St: REG FAX: Nuha Marcano MD [phone] Name: KADI DEMARCO [facility] : 1935 Age/S: 83/F [address] [facility] Unit: [id number] Loc: [address] [place]: [place] [address] Acct:[id number] Dis Date: Status: REG ER PHONE #: [phone] Exam Date: 12/23/20182138 FAX #: [phone] Reason: head injury EXAMS: CPT CODE: [id number] CT C-SPINE W/O CONT 53047 CLINICAL HISTORY: Head injury, combative. CT brain, [...] PAGE 1 Signed Report (CONTINUED) FAX: Silvia AdameNortheast HarborJr II [phone] [place]: St: REG FAX: Nuha Marcano MD ------ Name: KADI DEMARCO [facility] : 1935 Age/S: 83/F [address] [facility] Unit : [id number] Loc: [address] [place]: [place] [address] Acct: [id number] Dis Date: Status: REG ER PHONE #: [phone] Exam Date: 12/23/20182138 FAX #: [phone] Reason: head injury EXAMS: CPT CODE: [id number] CT C-SPINE W/O CONT 00139 <Continued> The vertebral bodies are free of [...] spondylosis. Multilevel foraminal stenosis. Location: U19 at 2147 Reported and signed by: David Alvarez M.D. CC: Jr Shaw III, MD; Michelle PALACIOS Technologist: YVONNE LOWERY Trnscrd Dt/Tm: 12/23/2018 (2144) [place] Orig Print D/T: S: 12/23/2018 (8 PAGE 2 Signed Report
--- NOTE | 2019-08-12 17:31 | RAD REPORT ---
EXAM DESCRIPTION: CT - Ct Stroke Brain Wo Cont - 08/12/2019 5:24 pm CLINICAL HISTORY: Numbness COMPARISON: March 2019 TECHNIQUE: Computed axial tomography of the head was obtained. All CT scans are performed using dose optimization technique as appropriate and may include automated exposure control or mA/KV adjustment according to patient size. FINDINGS: An intracranial bleed is not seen . The ventricles are normal in caliber. No extra-axial fluid collection is noted. Mild to moderate low-density within periventricular, deep and subcortical white matter likely ischemi c changes secondary to small vessel disease Fluid within the sinuses/ mastoids is not seen. IMPRESSION: No acute intracranial abnormality is seen. If patient's symptoms persist MRI of the bra in would be recommended. Dr Aguillon of the emergency room was notified at 5:20 p.m. August 12, 2019
[2019-08-12 17:39] LABS: Absolute Lymphocytes (CBC) 2.4 K/uL (0.7-4.9); Hematocrit 31.1 % (36.0-45.0); Lymphocytes % 34.6 % (15.3-44.8); MPV 8.8 fL (7.6-11.3); RBC Red Blood Cell Count 3.22 M/uL (3.86-4.86)
[2019-08-12 17:45] LABS: Protime INR 1.04
--- NOTE | 2019-08-12 17:49 | RAD REPORT ---
EXAM DESCRIPTION: [place] Single View08/12/2019 5:36 pm CLINICAL HISTORY: Chest pain COMPARISON: March 2019 FINDINGS: Right upper lobe is mildly hazy The left lung appears clear Heart is borderline enlarged IMPRESSION: Right upper lobe is mildly hazy which may indicate a mild pneumonia
[2019-08-12 17:55] LABS: Potassium 4.1 mmol/L (3.5-5.1)
[2019-08-12 18:01] LABS: Anisocytosis 1+; Blood Morphology Comment NOTED (NOT SEEN); Platelet Estimate ADEQ; Urine White Blood Cell Casts OK
[2019-08-12] MEDS ORDERED: CEFTRIAXONE/SWI 1gm 1 GM/10 ML SYR ONE (18:11)
[2019-08-12] MEDS ORDERED: NA CHLORIDE 0.9% 1,000 ML ONE (18:11)
[2019-08-12 18:21] LABS: ALT/SGPT 23 U/L (12-78); AST/SGOT 27 U/L (15-37); Albumin 3.1 g/dL (3.4-5.0); Alkaline Phosphatase 74 U/L (45-117); Bilirubin Direct 0.2 mg/dL (0-0.2); Bilirubin Total 0.6 mg/dL (0.2-1.0); Magnesium 2.1 mg/dL (1.8-2.4); NT PRO-BNP 4865 pg/mL (<450); Protein, Total 6.4 g/dL (6.4-8.2); Troponin (Emerg Dept Use Only) < 0.02 ng/mL (0.0-0.045)
--- NOTE | 2019-08-12 19:19 | ER ---
Nurse's Notes [facility] Name: Sharri Hickman Age: 84 yrs Sex: Female : 1935 Arrival Date: 08/12/2019 Time: 17:09 Bed 24 Private MD: Diagnosis: Dyspnea;Pneumonia due to other specified bacteria-rul;Urinary tract infection, site not specified;Dementia in other diseases classified elsewhere;Hypoglycemia, unspecified;Weakness Presentation: 08/12 17:27 Presenting complaint: EMS states: Pt is from [place] and the staff noticed an hour tr5 ago that the pt had some L facial drooping and generalized swelling in her body. They stated that when the patient was turned, the fluid swelling followed. They also reported that she had altered mental status. BG was 48, 100 D10 given and then BG was 110. Transition of care: patient was received from another setting of care (long-term care facility), [place]. Onset of symptoms was August 12, 2019. Risk Assessment: Do you want to hurt yourself or someone else? Patient reports no desire to harm self or others. Initial Sepsis Screen: Does the patient meet any 2 criteria? No. Patient's initial sepsis screen is negative. Does the patient have a suspected source of infection? No. Patient's initial sepsis screen is negative. Care prior to arrival: IV initiated. 20 GA, in the left antecubital area, Glucose check: 110. Care prior to arrival:. 17:27 Method Of Arrival: EMS: [facility] tr5 17:27 Acuity: MISSY 3 tr5 Historical: - Allergies: 17:57 Haldol; tr5 17:57 Lidocaine; tr5 - Home Meds: 17:57 acetaminophen 325 mg Oral tab 1 tab every 4 hours [Active]; acetaminophen 500 mg Oral tr5 tab every 6 hours for Pain [Active]; acetaminophen-codeine 300-30 mg Oral tab every 6 hours for Pain [Active]; depakote sprinkles 125mg 2 caps PO BID for agitation [Active]; docusate calcium 240 mg Oral cap 1 cap once daily [Active]; docusate sodium 100 mg Oral cap 2 caps once daily [Active]; folic acid 1 mg Oral tab 1 tab once daily [Active]; lorazepam 0.5 mg Oral tab 0.5 tab 2 times per day [Active]; ondansetron HCl 4 mg Oral tab 2 tabs every 8 hours [Active]; promethazine 25 mg Oral tab every 4 hours [Active]; risperidone 0.25 mg Oral tab 1 tabs 2 times per day [Active]; trazodone 50 mg Oral tab at bedtime [Active]; - PMHx: 17:57 acute psychosis; Anxiety; constipation; Dementia; Fx of right pubis; Repeated falls; tr5 - Immunization history:: Adult Immunizations up to date. - Social history:: Smoking status: unknown. - Ebola Screening: : No symptoms or risks identified at this time. - Family history:: not pertinent. Screenin:30 Abuse screen: Denies threats or abuse. Nutritional screening: No deficits noted. tr5 Tuberculosis screening: No symptoms or risk factors identified. Fall Risk None identified. Assessment: 17:08 Reassessment: CODE STROKE CALLED, PT TO CT WITH MAGGI RN VIA STRETCHER. hb 17:20 General: Appears uncomfortable, Behavior is inappropriate for age, quiet, tr5 uncooperative, unresponsive. Pain: Denies pain. Neuro: Level of Consciousness is lethargic. Cardiovascular: Heart tones present Capillary refill < 3 seconds Pulses are all present. Edema is 2+ to Generalized. Respiratory: Airway is patent Respiratory effort is even, unlabored, Respiratory pattern is regular, symmetrical, Breath sounds with crackles bilaterally. GI: No signs and/or symptoms were reported involving the gastrointestinal system. : No signs and/or symptoms were reported regarding the genitourinary system. EENT: L sided facial drooping noted. . Derm: No signs and/or symptoms reported regarding the dermatologic system. Musculoskeletal: No signs and/or symptoms reported regarding the musculoskeletal system. 18:00 Reassessment: Patient and/or family updated on plan of care and expected duration. Pain tr5 level reassessed. Pt's daughter at bedside. Per pt's daughter this is her mother's baseline and pt has always had somewhat of a droopy L side of her face. 19:00 Reassessment: Patient appears in no apparent distress at this time. Patient and/or tr5 family updated on plan of care and expected duration. Pain level reassessed. 20:00 Reassessment: Patient appears in no apparent distress at this time. Patient and/or tr5 family updated on plan of care and expected duration. Pain level reassessed. Pt's family at bedside. Awaiting a room assignment. 21:00 Reassessment: Patient appears in no apparent distress at this time. No changes from tr5 previously documented assessment. Patient and/or family updated on plan of care and expected duration. Pain level reassessed. Vital Signs: 17:34 Pulse 100; Resp 14; Pulse Ox 97% on R/A; jp3 17:50 BP 160 / 128; Pulse 104; Resp 18; Temp 98(O); Pulse Ox 100% on R/A; tr5 19:00 BP 152 / 107; Pulse 115; Resp 16; Pulse Ox 98% on R/A; tr5 20:00 BP 138 / 104; Pulse 98; Resp 17; Pulse Ox 99% on R/A; tr5 20:56 BP 153 / 102; Pulse 103; Resp 17; Pulse Ox 99% on R/A; tr5 21:35 BP 152 / 88; Pulse 110; Resp 16; Pulse Ox 99% on R/A; tr5 17:34 blood sugar at bedside is 94 jp3 ED Course: 17:09 Patient arrived in ED. hb 17:17 Micheal Moore, RN is Primary Nurse. tr5 17:30 Triage completed. tr5 17:33 CT Stroke Brain w/o Contrast In Process Unspecified. EDMS 17:37 Patient has correct armband on for positive identification. Bed in low position. Call jp3 light in reach. Side rails up X 1. Side rails up X2. Warm blanket given. Verbal reassurance given. classroom monitor on. Pulse ox on. NIBP on. 17:37 Initial lab(s) drawn, by ED staff, sent to lab. EKG done, by ED staff, X-ray(s) taken. jp3 Maintain EMS IV. Dressing intact. Good blood return noted. Site clean \T\ dry. Gauge \T\ site: 20 gauge to right AC. Patient maintains SpO2 saturation greater than 95% on room air. 17:38 Stroke CXR 1 View In Process Unspecified. EDMS 17:46 Dylan Cano MD is Attending Physician. jamey 17:55 First set of blood cultures drawn by mn. jp3 17:57 Arm band placed on Patient placed. tr5 19:10 Urine collected: Jameson catheter specimen, clear, paul colored, Amount Returned: 120mL. jp3 19:10 Jameson cath inserted, using sterile technique, 16 Fr., by ED staff, balloon inflated, to jp3 gravity drainage, urine specimen collected. returned clear yellow urine. Patient tolerated well. 19:16 Shahida Cash MD is Hospitalizing Provider. [facility] 21:18 No provider procedures requiring assistance completed. Patient admitted, IV remains in tr5 place. Administered Medications: 18:21 Drug: Rocephin 1 grams Route: IV; Rate: per protocol; Site: left antecubital; tr5 19:51 Follow up: IV Status: Completed infusion; IV Intake: 50ml tr5 18:22 Drug: NS 0.9% 1000 ml Route: IV; Rate: 1 bolus; Site: left antecubital; tr5 19:51 Follow up: IV Status: Completed infusion; IV Intake: 1000ml tr5 19:37 Drug: Zosyn 3.375 grams Route: IVPB; Infused Over: 60 mins; Site: left antecubital; tr5 19:51 Drug: Xopenex 1.25 mg Route: Inhalation; tr5 19:51 Drug: AtroVENT Aerosol 0.5 mg Route: Inhalation; tr5 Intake: 19:51 IV: 50ml; Total: 50ml. tr5 19:51 IV: 1000ml; Total: 1050ml. tr5 Outcome: 19:18 Decision to Hospitalize by Provider. [facility] 21:18 Condition: stable tr5 21:18 Instructed on the need for admit. 21:55 Patient left the ED. tr5 Signatures: Dispatcher [employer] EDOK Dylan Cano MD MD cha Baxter, Heather, RN RN Swapnil Fitch 3 Micheal Moore, FRANCISCO RN tr5 Corrections: (The following items were deleted from the chart) 17:10 17:09 Reassessment: CODE STROKE CALLED, PT TO CT WITH MAGGI SINGH VIA STRETCHER valentina hb
--- NOTE | 2019-08-12 19:19 | EDPHYS ---
Physician Documentation [facility] Name: Sharri Hickman Age: 84 yrs Sex: Female : 1935 Arrival Date: 08/12/2019 Time: 17:09 Bed 24 Private MD: ED Physician Dylan Cano HPI: 08/12 19:07 This 84 yrs old Female presents to ER via EMS with complaints of weakness, jamey ams and body edema. 19:07 weak , fbs 48, weakness, dementia. The patient presents with confusion, decreased jamey responsiveness, disorientation. Onset: The symptoms/episode began/occurred just prior to arrival, ongoing for months, severe dementia, left corner of mouth maybe droopy. Possible causes: CVA or TIA, low blood sugar, sepsis, unknown, dementia. Associated signs and symptoms: Pertinent positives:. Onset: The symptoms/episode began/occurred. Current symptoms: In the emergency department the patient's symptoms are unchanged from the initial presentation, despite EMS interventions. Patient's baseline: Neuro:. Severity of symptoms: At their worst the symptoms were mild moderate in the emergency department the symptoms have improved mildly. It is unknown whether or not the patient has had similar symptoms in the past. Historical: - Allergies: 17:57 Haldol; tr5 17:57 Lidocaine; tr5 - Home Meds: 17:57 acetaminophen 325 mg Oral tab 1 tab every 4 hours [Active]; acetaminophen 500 mg Oral tr5 tab every 6 hours for Pain [Active]; acetaminophen-codeine 300-30 mg Oral tab every 6 hours for Pain [Active]; depakote sprinkles 125mg 2 caps PO BID for agitation [Active]; docusate calcium 240 mg Oral cap 1 cap once daily [Active]; docusate sodium 100 mg Oral cap 2 caps once daily [Active]; folic acid 1 mg Oral tab 1 tab once daily [Active]; lorazepam 0.5 mg Oral tab 0.5 tab 2 times per day [Active]; ondansetron HCl 4 mg Oral tab 2 tabs every 8 hours [Active]; promethazine 25 mg Oral tab every 4 hours [Active]; risperidone 0.25 mg Oral tab 1 tabs 2 times per day [Active]; trazodone 50 mg Oral tab at bedtime [Active]; - PMHx: 17:57 acute psychosis; Anxiety; constipation; Dementia; Fx of right pubis; Repeated falls; tr5 - Immunization history:: Adult Immunizations up to date. - Social history:: Smoking status: unknown. - Ebola Screening: : No symptoms or risks identified at this time. - Family history:: not pertinent. ROS: 19:11 Eyes: Negative for injury, pain, redness, and discharge, ENT: Negative for injury, jamey pain, and discharge, Neck: Negative for injury, pain, and swelling, Cardiovascular: Negative for chest pain, palpitations, and edema, Respiratory: Negative for shortness of breath, cough, wheezing, and pleuritic chest pain, Abdomen/GI: Negative for abdominal pain, nausea, vomiting, diarrhea, and constipation, Back: Negative for injury and pain, : Negative for injury, bleeding, discharge, and swelling, Skin: Negative for injury, rash, and discoloration, Psych: Negative for depression, anxiety, suicide ideation, homicidal ideation, and hallucinations, Allergy/Immunology: Negative for hives, rash, and allergies, Endocrine: Negative for neck swelling, polydipsia, polyuria, polyphagia, and marked weight changes. 19:11 Constitutional: Positive for fatigue, malaise. 19:11 Respiratory: Positive for cough, with no reported sputum. 19:11 MS/extremity: Positive for contractions. 19:11 Neuro: Positive for altered mental status, speech changes, weakness, severe dementia. Exam: 19:11 Constitutional: This is a well developed, well nourished patient who is awake, alert, jamey and in no acute distress. Head/Face: Normocephalic, atraumatic. Eyes: Pupils equal round and reactive to light, extra-ocular motions intact. Lids and lashes normal. Conjunctiva and sclera are non-icteric and not injected. Cornea within normal limits. Periorbital areas with no swelling, redness, or edema. ENT: Nares patent. No nasal discharge, no septal abnormalities noted. Tympanic membranes are normal and external auditory canals are clear. Oropharynx with no redness, swelling, or masses, exudates, or evidence of obstruction, uvula midline. Mucous membranes moist. Neck: Trachea midline, no thyromegaly or masses palpated, and no cervical lymphadenopathy. Supple, full range of motion without nuchal rigidity, or vertebral point tenderness. No Meningismus. Chest/axilla: Normal chest wall appearance and motion. Nontender with no deformity. No lesions are appreciated. Cardiovascular: Regular rate and rhythm with a normal S1 and S2. No gallops, murmurs, or rubs. Normal PMI, no JVD. No pulse deficits. Abdomen/GI: Soft, non-tender, with normal bowel sounds. No distension or tympany. No guarding or rebound. No evidence of tenderness throughout. Back: No spinal tenderness. No costovertebral tenderness. Full range of motion. Female : Normal external genitalia. Skin: Warm, dry with normal turgor. Normal color with no rashes, no lesions, and no evidence of cellulitis. MS/ Extremity: Pulses equal, no cyanosis. Neurovascular intact. Full, normal range of motion. Psych: Awake, alert, with orientation to person, place and time. Behavior, mood, and affect are within normal limits. 19:11 Respiratory: the patient does not display signs of respiratory distress, Respirations: normal, no acute changes, Breath sounds: decreased breath sounds, rhonchi, that are mild, are heard in the right upper lobe. 19:11 Neuro: Orientation: Not oriented to person, place, time, situation, Mentation: slow to respond, confused, Memory: unable to test, Cranial nerves: facial droop noted on left, Motor: moves all fours, Sensation: unable to test, Gait: not tested. Deep tendon reflexes are 1 (trace) + in the bilateral brachioradialis, bicep, tricep and patellar and Achilles tendons, seizure activity, is not displayed by the patient. Vital Signs: 17:34 Pulse 100; Resp 14; Pulse Ox 97% on R/A; jp3 17:50 BP 160 / 128; Pulse 104; Resp 18; Temp 98(O); Pulse Ox 100% on R/A; tr5 19:00 BP 152 / 107; Pulse 115; Resp 16; Pulse Ox 98% on R/A; tr5 20:00 BP 138 / 104; Pulse 98; Resp 17; Pulse Ox 99% on R/A; tr5 20:56 BP 153 / 102; Pulse 103; Resp 17; Pulse Ox 99% on R/A; tr5 21:35 BP 152 / 88; Pulse 110; Resp 16; Pulse Ox 99% on R/A; tr5 17:34 blood sugar at bedside is 94 jp3 MDM: 17:46 Patient medically screened. [facility] 19:16 Data reviewed: vital signs, nurses notes, lab test result(s), EKG, radiologic studies, [facility] CT scan, plain films. 08/12 17:15 Order name: Basic Metabolic Panel; Complete Time: 18:57 em1 08/12 17:15 Order name: CBC with Diff; Complete Time: 18:57 1 08/12 17:15 Order name: Protime (+inr); Complete Time: 17:51 em1 08/12 17:15 Order name: Ptt, Activated; Complete Time: 17:51 em1 08/12 17:45 Order name: Glucose, Ancillary Testing; Complete Time: 17:51 EDWA 08/12 17:51 Order name: LFT's; Complete Time: 18:57 [facility] 08/12 17:51 Order name: Magnesium; Complete Time: 18:57 [facility] 08/12 17:51 Order name: NT PRO-BNP; Complete Time: 18:57 [facility] 08/12 17:51 Order name: Troponin (emerg Dept Use Only); Complete Time: 18:57 [facility] 08/12 17:51 Order name: Blood Culture Adult (2) [facility] 08/12 17:51 Order name: Urine Culture [facility] 08/12 18:02 Order name: CBC Smear Scan; Complete Time: 18:57 [facility] 08/12 18:59 Order name: Procalcitonin [facility] 08/12 18:59 Order name: Depakote [facility] 08/12 17:15 Order name: CT Stroke Brain w/o Contrast; Complete Time: 17:51 [facility] 08/12 19:47 Order name: Urine Dipstick--Ancillary (enter results) ar5 08/12 20:33 Order name: CBC with Automated Diff EDWA 08/12 20:33 Order name: CBC with Automated Diff EDMS 08/12 20:33 Order name: Comprehensive Metabolic Panel EDMS 08/12 20:33 Order name: Comprehensive Metabolic Panel EDMS 08/12 20:33 Order name: Lactate EDMS 08/12 20:33 Order name: Lactate EDMS 08/12 20:33 Order name: Lipid Profile EDMS 08/12 20:33 Order name: Lipid Profile EDMS 08/12 20:33 Order name: Magnesium EDMS 08/12 20:33 Order name: Magnesium EDMS 08/12 20:33 Order name: Phosphorus EDMS 08/12 20:33 Order name: Phosphorus EDMS 08/12 20:33 Order name: NT PRO-BNP EDMS 08/12 20:33 Order name: NT PRO-BNP EDMS 08/12 17:15 Order name: Stroke CXR 1 View; Complete Time: 18:57 08/12 17:15 Order name: EKG; Complete Time: 17:16 08/12 17:15 Order name: Accucheck; Complete Time: 17:42 08/12 17:15 Order name: Cardiac monitoring; Complete Time: 17:43 08/12 17:15 Order name: EKG - Nurse/Tech; Complete Time: 17:43 08/12 17:15 Order name: IV Saline Lock; Complete Time: 17:43 08/12 17:15 Order name: Labs collected and sent; Complete Time: 17:42 08/12 17:15 Order name: NPO; Complete Time: 17:42 08/12 17:15 Order name: O2 Per Protocol; Complete Time: 17:42 08/12 17:15 Order name: O2 Sat Monitoring; Complete Time: 17:42 08/12 17:15 Order name: Stroke Swallow Screen; Complete Time: 19:23 08/12 17:51 Order name: Urine Dipstick-Ancillary (obtain specimen); Complete Time: 19:21 [facility] 08/12 18:57 Order name: Jameson; Complete Time: 18:58 [facility] 08/12 20:32 Order name: NPO EDMS Administered Medications: 18:21 Drug: Rocephin 1 grams Route: IV; Rate: per protocol; Site: left antecubital; tr5 19:51 Follow up: IV Status: Completed infusion; IV Intake: 50ml tr5 18:22 Drug: NS 0.9% 1000 ml Route: IV; Rate: 1 bolus; Site: left antecubital; tr5 19:51 Follow up: IV Status: Completed infusion; IV Intake: 1000ml tr5 19:37 Drug: Zosyn 3.375 grams Route: IVPB; Infused Over: 60 mins; Site: left antecubital; tr5 19:51 Drug: Xopenex 1.25 mg Route: Inhalation; tr5 19:51 Drug: AtroVENT Aerosol 0.5 mg Route: Inhalation; tr5 Disposition: 08/12/19 19:18 Hospitalization ordered by Shahida Cash for Inpatient Admission. Preliminary diagnosis are Dyspnea, Pneumonia due to other specified bacteria - rul, Urinary tract infection, site not specified, Dementia in other diseases classified elsewhere, Hypoglycemia, unspecified, Weakness. - Bed requested for Telemetry/MedSurg (Inpatient). - Status is Inpatient Admission. tr5 - Condition is Serious. - Problem is new. - Symptoms have improved. UTI on Admission? Yes Signatures: Dispatcher [employer] EDMS Rebecca Dawson RN RN Dylan Cano MD MD cha Martinez, Jose Juan [facility] Micheal Moore RN RN tr5 Corrections: (The following items were deleted from the chart) 19 19:18 Hospitalization Ordered by Shahida Cash MD for Inpatient Admission. Preliminary diagnosis is Dyspnea; Pneumonia due to other specified bacteria - rul; Urinary tract infection, site not specified; Dementia in other diseases classified elsewhere; Hypoglycemia, unspecified; Weakness. Bed requested for Telemetry/MedSurg (Inpatient). Status is Inpatient Admission. Condition is Serious. Problem is new. Symptoms have improved. UTI on Admission? Yes. [facility] 19:28 19:27 08/12/2019 19:18 Hospitalization Ordered by Shahida Cash MD for Inpatient Admission. Preliminary diagnosis is Dyspnea; Pneumonia due to other specified bacteria - rul; Urinary tract infection, site not specified; Dementia in other diseases classified elsewhere; Hypoglycemia, unspecified; Weakness. Bed requested for Telemetry/MedSurg (Inpatient). Status is Inpatient Admission. Condition is Serious. Problem is new. Symptoms have improved. UTI on Admission? Yes. 20:34 19:28 08/12/2019 19:18 Hospitalization Ordered by Shahida Cash MD for Inpatient mw Admission. Preliminary diagnosis is Dyspnea; Pneumonia due to other specified bacteria - rul; Urinary tract infection, site not specified; Dementia in other diseases classified elsewhere; Hypoglycemia, unspecified; Weakness. Bed requested for Telemetry/MedSurg (Inpatient). Status is Inpatient Admission. Condition is Serious. Problem is new. Symptoms have improved. UTI on Admission? Yes. 21:55 20:34 08/12/2019 19:18 Hospitalization Ordered by Shahida Cash MD for Inpatient tr5 Admission. Preliminary diagnosis is Dyspnea; Pneumonia due to other specified bacteria - rul; Urinary tract infection, site not specified; Dementia in other diseases classified elsewhere; Hypoglycemia, unspecified; Weakness. Bed requested for Telemetry/MedSurg (Inpatient). Status is Inpatient Admission. Condition is Serious. Problem is new. Symptoms have improved. UTI on Admission? Yes. mw
[2019-08-12] MEDS ORDERED: IPRATROPIUM BROM 0.5MG/2.5ML ONE (19:31)
[2019-08-12] MEDS ORDERED: PIPER/TAZO/NS 3.375gm 3.375 GM/100 ML BAG ONE (19:31)
[2019-08-12] MEDS ORDERED: LEVALBUTEROL 1.25 MG/3 ML NEB ONE (19:31)
[2019-08-12 20:12] LABS: Urine Blood NEGATIVE (NEG); Urine Glucose NEGATIVE (NEG); Urine Protein NEGATIVE (NEG)
[2019-08-12] MEDS ORDERED: ONDANSETRON 4 MG/2 ML VIAL IV PRN (20:26)
[2019-08-12] MEDS ORDERED: ACETAMINOPHEN 500 MG TAB PO PRN (20:26)
[2019-08-12] MEDS ORDERED: ALBUTEROL 2.5 MG/3 ML NEB SOL NEB PRN (20:26)
[2019-08-12] MEDS ORDERED: MAGNESIUM HYDROXIDE 8% 30 ML PO PRN (20:26)
[2019-08-12] MEDS ORDERED: AZITHROMYCIN IV 500 MG in NA CHLORIDE 0.9% 250 ML IVPB SCH (21:00)
[2019-08-12 22:46] VITALS: BMI 24.4
[2019-08-13] MEDS: NA CHLORIDE 0.9% 1,000 ML IV SCH ×4 (02:26→23:40)
[2019-08-13] MEDS: IPRATROPIUM BROM 0.5MG/2.5ML NEB SCH ×4 (02:55→20:45)
[2019-08-13] MEDS ORDERED: NA CHLORIDE 0.9% 0 ML ONE (03:30)
[2019-08-13 04:27] LABS: Absolute Lymphocytes (CBC) 1.9 K/uL (0.7-4.9); Basophils % 1.1 % (0-1.3); Hematocrit 28.7 % (36.0-45.0); Lymphocytes % 34.3 % (15.3-44.8); MPV 8.5 fL (7.6-11.3); RBC Red Blood Cell Count 2.95 M/uL (3.86-4.86)
[2019-08-13 04:45] LABS: Albumin 2.8 g/dL (3.4-5.0); Bilirubin Total 0.6 mg/dL (0.2-1.0); Phosphorus 3.7 mg/dL (2.5-4.9); Potassium 3.6 mmol/L (3.5-5.1)
[2019-08-13] MEDS ORDERED: TRAMADOL HCL 50 MG TAB PO PRN (05:38)
[2019-08-13] MEDS: METOPROLOL TAR 25 MG TAB PO SCH ×4 (06:00→20:03)
--- NOTE | 2019-08-13 06:44 | EKG ---
Test Date: 2019-08-12 Test Time: 17:23:21 [employer]: [employer] MEASUREMENT RESULTS: Intervals: Rate: 104 WV: QRSD: 68 QT: 336 QTc: 441 Red[place]: P: WV: QRS: 57 T: 58 INTERPRETIVE STATEMENTS: Atrial fibrillation with rapid ventricular response Nonspecific ST abnormality Abnormal ECG Compared to ECG 03/23/2019 02:32:37 ST (T wave) deviation now present Electronically Signed On 08-13-19 06:43:29 MEDICAL OFFICE SECRETARY by Favian Scott
[2019-08-13] MEDS ORDERED: KCL 20 MEQ/100 mL IVPB 20 MEQ/100 ML BAG IV SCH (07:00)
[2019-08-13] MEDS: RISPERIDONE 0.25 MG TABLET PO SCH ×3 (09:00→20:02)
[2019-08-13] MEDS: FOLIC ACID 1 MG TABLET PO SCH (09:00)
[2019-08-13] MEDS: ENOXAPARIN 30 MG/0.3 ML SQ SCH (09:00)
[2019-08-13] MEDS: FERROUS SULFATE 325 MG TAB PO SCH ×2 (09:00→20:02)
[2019-08-13] MEDS: AZITHROMYCIN IV 500 MG in NA CHLORIDE 0.9% 250 ML IVPB SCH (09:33)
[2019-08-13] MEDS: CEFTRIAXONE/SWI 1gm 1 GM/10 ML SYR IV SCH ×2 (09:34→20:02)
--- NOTE | 2019-08-13 14:07 | P.HP ---
Certification for Inpatient Patient admitted to: Observation With expected LOS: <2 Midnights Patient will require the following post-hospital care: None Practitioner: I am a practitioner with admitting privileges, knowledge of patient current condition, hospital course, and medical plan of care. Services: Services provided to patient in accordance with Admission requirements found in Title 42 Section 412.3 of the Code of Federal Regulations Patient History Date of Service: 08/12/19 Reason for admission: ALTERED MENTATION/RIGHT UPPER LOBE PNEUMONIA History of Present Illness: Patient is a 84-year-old female who came to the hospital with fever and confusion. Patient was worked up extensively in the emergency room, and her workup revealed a right upper lobe pneumonia. Patient was admitted to the hospital for further workup. [facility]. Her quality of life is very poor. She pretty much is bed-bound and make it into a wheelchair occasionally. At this time, patient will be admitted for observation. Will speak with family regarding long-term prognosis. Allergies haloperidol Adverse Reaction (Verified 02/10/19 02:44) Rash lidocaine Adverse Reaction (Verified 02/10/19 02:44) Rash Home Medications: Acetaminophen [Tylenol Extra Strength] 500 mg PO Q6H PRN 08/13/19 Acetaminophen with Codeine [Tylenol with Codeine #3 Tablet] 1 each PO Q6H PRN Docusate Sodium 20 mg PO DAILY 08/13/19 Ferrous Sulfate [Feosol] 325 mg PO BID 08/13/19 Folic Acid 1 mg PO DAILY 08/13/19 Metoprolol Tartrate [Lopressor] 25 mg PO BID 08/13/19 Tramadol HCl [Ultram] 50 mg PO Q8H PRN 08/13/19 Trazodone HCl 100 mg PO BEDTIME 08/13/19 risperiDONE [Risperdal] 0.5 mg PO BID 08/13/19 - Past Medical/Surgical History Diabetic: No -: Ovarian Cancer -: Dementia -: Kidney Failure -: Right Pelvic Fracture -: FX L pelvis and femur -: Anxiety -: Depression -: Atrial Fibrillation -: Hysterectomy -: Uterine suspension - Family History Father Family History: Reviewed- Non-Contributory - Social History Smoking Status: Unknown if ever smoked Alcohol use: No CD- Drugs: No Caffeine use: No Place of Residence: Longterm Review of Systems 10-point ROS is otherwise unremarkable Physical Examination - Vital Signs Temperature: 97.1 F Blood Pressure: 138/78 Pulse: 113 Respirations: 20 Pulse Ox (%): 99 - Physical Exam General: Demented, Confused HEENT: Atraumatic, PERRLA, Mucous membr. moist/pink, EOMI, Sclerae nonicteric Neck: Supple, 2+ carotid pulse no bruit, No LAD, Without JVD or thyroid abnormality Respiratory: Diminished, Rhonchi/gurgles Cardiovascular: Regular rate/rhythm, Normal S1 S2 Gastrointestinal: Normal bowel sounds, Soft and benign, Non-distended, No tenderness Musculoskeletal: No clubbing, No swelling, No tenderness Integumentary: No rashes Neurological: Normal gait, Normal speech, Normal strength at 5/5 x4 extr, Normal tone, Sensation intact, Cranial nerves 3-12 intact, Normal affect Lymphatics: No axilla or inguinal lymphadenopathy - Studies Laboratory Data (last 24 hrs) 08/12/19 17:27: PT 12.3, INR 1.04, APTT 26.6 08/12/19 17:27: WBC 6.9, Hgb 10.4 L, Hct 31.1 L, Plt Count 161 D 08/12/19 17:27: Sodium 144, Potassium 4.1, BUN 23 H, Creatinine 1.24, Glucose 113 H 08/12/19 17:22: Magnesium 2.1, Total Bilirubin 0.6, AST 27, ALT 23, Alkaline Phosphatase 74 Microbiology Data (last 24 hrs): 08/12/19 18:10 Blood - Blood Anaerobic Blood Culture - Final Assessment & Plan - Problems (Diagnosis) (1) Right upper lobe pneumonia Current Visit: Yes Status: Acute (2) Dementia in Alzheimer's disease Current Visit: No Status: Chronic - Plan Plan: 1. Continue with IV antibiotics 2. Awaiting sputum and blood culture; procalcitonin level 3. Continue with nebs as needed 4. O2 per protocol 5. Continue with gentle hydration 6. Repeat labs including CBC and renal function in a.m. 7. GI and DVT prophylaxis Discharge Plan: Longterm Plan to discharge in: 48 Hours - Advance Directives Does patient have a Living Will: No Does patient have a Durable POA for Healthcare: Yes - Code Status/Comfort Care Code Status Assessed: Yes Code Status: Do Not Attempt Resuscitat Critical Care: No Time Spent Managing PTS Care (In Minutes): 45
[2019-08-13] MEDS ORDERED: METOPROLOL TARTRATE 5 MG/5 ML INJ IV STA (15:16)
[2019-08-13] MEDS ORDERED: ALBUTEROL 2.5 MG/3 ML NEB SOL NEB PRN (16:00)
[2019-08-13] MEDS ORDERED: TRAZODONE 50 MG TABLET PO SCH (21:00)
[2019-08-14] MEDS: IPRATROPIUM BROM 0.5MG/2.5ML NEB SCH ×2 (02:00→07:45)
--- NOTE | 2019-08-14 06:02 | P.PN ---
Date of Service: 08/13/19 Subjective Patient clinically stable. No new changes. Hemodynamically stable. Arrange for hospice prior to discharge per family wishes. Review of Systems 10-point ROS is otherwise unremarkable Physical Examination - Vital Signs reviewed - Physical Exam General: Demented, Confused Respiratory: Diminished, clear bilaterally Cardiovascular: Regular rate/rhythm, Normal S1 S2 Gastrointestinal: Normal bowel sounds, Soft and benign, Non-distended, No tenderness Musculoskeletal: No clubbing, No swelling, No tenderness Neurological: Demented; Assessment & Plan - Problems (Diagnosis) (1) Right upper lobe pneumonia Current Visit: Yes Status: Acute (2) Dementia in Alzheimer's disease Current Visit: No Status: Chronic - Plan Plan: 1. Continue with IV antibiotics 2. Awaiting culture; procalcitonin level 3. Continue with nebs as needed 4. O2 per protocol 5. Continue with gentle hydration 6. Repeat labs including CBC and renal function in a.m. 7. Arrange for hospice; secondary to advanced alzheimer's dementia with FAST score of 7B 8. GI and DVT prophylaxis
--- NOTE | 2019-08-14 07:29 | P.DS ---
Discharge Date: 08/14/19 Disposition: HOSPICE-MEDICAL FACILITY Discharge Condition: FAIR Reason for Admission: ALTERED MENTATION/RIGHT UPPER LOBE PNEUMONIA - Problems (1) Right upper lobe pneumonia Current Visit: Yes Status: Acute (2) Dementia in Alzheimer's disease Current Visit: No Status: Chronic Brief History of Present Illness: Patient is a 84-year-old female who came to the hospital with fever and confusion. Patient was worked up extensively in the emergency room, and her workup revealed a right upper lobe pneumonia. Patient was admitted to the hospital for further workup. [facility] Her quality of life is very poor. She pretty much is bed-bound and make it into a wheelchair occasionally. At this time, patient will be admitted for observation. Will speak with family regarding long-term prognosis. Hospital Course: Patient is stable with no new complaints. Patient has Alzheimer's dementia with a fast score of 7 be. Long-term prognosis is poor. Patient was accepted to hospice under [facility]. Will discharge patient back to [facility]. Vital Signs/Physical Exam: Temp Pulse Resp BP Pulse Ox 97.5 F 104 H 20 149/92 H 98 08/14/19 04:00 08/14/19 04:00 08/14/19 04:00 08/14/19 04:00 08/14/19 04:00 General: Demented Laboratory Data at Discharge: WBC 5.5 K/uL (4.3-10.9) D 08/13/19 04:15 Hgb 9.4 g/dL (12.0-15.0) L 08/13/19 04:15 Hct 28.7 % (36.0-45.0) L 08/13/19 04:15 Plt Count 141 K/uL (152-406) L 08/13/19 04:15 PT 12.3 SECONDS (9.5-12.5) 08/12/19 17:27 INR 1.04 08/12/19 17:27 APTT 26.6 SECONDS (24.3-36.9) 08/12/19 17:27 Sodium 144 mmol/L (136-145) 08/13/19 04:15 Potassium 3.6 mmol/L (3.5-5.1) 08/13/19 04:15 BUN 19 mg/dL (7-18) H 08/13/19 04:15 Creatinine 1.09 mg/dL (0.55-1.3) 08/13/19 04:15 Glucose 85 mg/dL (74-106) 08/13/19 04:15 Phosphorus 3.7 mg/dL (2.5-4.9) 08/13/19 04:15 Magnesium 2.0 mg/dL (1.8-2.4) 08/13/19 04:15 Total Bilirubin 0.6 mg/dL (0.2-1.0) 08/13/19 04:15 AST 23 U/L (15-37) 08/13/19 04:15 ALT 22 U/L (12-78) 08/13/19 04:15 Alkaline Phosphatase 64 U/L (45-117) 08/13/19 04:15 Triglycerides 74 mg/dL (<150) 08/13/19 04:15 Cholesterol 140 mg/dL (<200) 08/13/19 04:15 HDL Cholesterol 58 mg/dL (40-60) 08/13/19 04:15 Cholesterol/HDL Ratio 2.41 08/13/19 04:15 Home Medications: Acetaminophen [Tylenol Extra Strength] 500 mg PO Q6H PRN 08/13/19 Acetaminophen with Codeine [Tylenol with Codeine #3 Tablet] 1 each PO Q6H PRN Docusate Sodium 20 mg PO DAILY 08/13/19 Ferrous Sulfate [Feosol] 325 mg PO BID 08/13/19 Folic Acid 1 mg PO DAILY 08/13/19 Metoprolol Tartrate [Lopressor] 25 mg PO BID 08/13/19 Tramadol HCl [Ultram] 50 mg PO Q8H PRN 08/13/19 Trazodone HCl 100 mg PO BEDTIME 08/13/19 risperiDONE [Risperdal] 0.5 mg PO BID 08/13/19 Patient Discharge Instructions: OK TO DC IV AND DC back to [place] under hospice care. CALL or TEXT DR. HELLER AT [phone] IF ANY QUESTIONS REGARDING HOSPITAL STAY. PLEASE CALL THE FLOOR AT [phone] IF ANY MEDICATION OR NURSING QUESTIONS. Diet: Regular Activity: Fall precautions Time spent managing pt's care (in minutes): 30
[2019-08-14] MEDS: AZITHROMYCIN IV 500 MG in NA CHLORIDE 0.9% 250 ML IVPB SCH (09:00)
[2019-08-14] MEDS: CEFTRIAXONE/SWI 1gm 1 GM/10 ML SYR IV SCH (09:19)
[2019-08-14] MEDS: ENOXAPARIN 30 MG/0.3 ML SQ SCH (09:19)
[2019-08-14] MEDS: METOPROLOL TAR 25 MG TAB PO SCH (09:20)
[2019-08-14] MEDS: FOLIC ACID 1 MG TABLET PO SCH (09:20)
[2019-08-14] MEDS: FERROUS SULFATE 325 MG TAB PO SCH (09:20)
[2019-08-14] MEDS: RISPERIDONE 0.25 MG TABLET PO SCH (09:20)
[2019-08-14 11:41] VITALS: O2SAT 98
[2019-08-14 12:55] VITALS: BP 144/89; TEMP 97.9
[2019-08-14] MEDS: NA CHLORIDE 0.9% 1,000 ML IV SCH (13:00)
== END 2019-08-14 13:50 | disposition hospice, home (50) ==
LOC: ER 17:03 → ERHOLD 20:26 → 4TH 21:15
PROVIDERS: ADMIT Internal Medicine; ATTEND Hospitalist
DX: J18.9 Pneumonia, unspecified organism (principal); G30.9 Alzheimer's disease, unspecified; F02.80 Dementia in other diseases classified elsewhere, unspecified severity, without behavioral disturbance, psychotic disturbance, mood disturbance, and anxiety; Z85.43 Personal history of malignant neoplasm of ovary
CPT/HCPCS: 96365; 93005; 87040 ×2; 87088; 85025 ×2; 87086; 80048; 36415; 83735 ×2; 87205; 84100; 85610; 80061; 82947; 80076; 80164; 83605; 85730; 87077; 87186; 81003; 84484; 80053; 84145; 83880 ×2; 70450; 71045; 94760 ×4; 51702; 96375; 99285; J0456; J1650 ×2; J2543; J0696 ×4; J7030 ×4; G0378 ×3